=== PATIENT | male | born 1975 | race Caucasian/White ===

== ENCOUNTER 2016-05-02 08:21 | Emergency (ER) | payer OTHER ==
[~2016-05-02] VITALS: Ht 167.6 cm; Wt 106.2 kg
[~2016-05-02 08:21] MED LIST: ALBUAER2 INH; IPRASOL4 INH; MOME200A INH; PRED20TA2 PO; [UNRECOGNIZED DRUG - REMARK]
[2016-05-02 08:24] VITALS: TEMP 36.5; Ht 167.6 cm; Wt 106.2 kg
[2016-05-02] MEDS ORDERED: METHYLPREDNISOLONE 125 MG VIAL IV STA (08:54)
[2016-05-02] MEDS ORDERED: ALBUT/IPRATROP 3MG/0.5MG NEB 3 ML VIAL INH STA (08:54)
[2016-05-02 09:01] VITALS: O2SAT 96
[2016-05-02 09:14] LABS: HEMATOCRIT 41.3 % (42-52); MEAN CELL VOLUME 85.2 fL (80-100); MEAN CORPUSCULAR HEMOGLOBIN 28.9 pg (25-34); MEAN CORPUSCULAR HGB CONC 33.9 g/dl (32-36); MEAN PLATELET VOLUME 9.2 fL (7.4-10.4); PLATELET COUNT 349 K/uL (130-400); RED BLOOD COUNT 4.85 M/uL (4.7-6.1); WHITE BLOOD COUNT 11.08 K/uL (4.8-10.8)
[2016-05-02 09:19] VITALS: PULSE 80; O2SAT 95
[2016-05-02] MEDS ORDERED: PRED10TA PO (09:36)
[2016-05-02] MEDS ORDERED: LOSA1TAB PO (09:37)
[2016-05-02] MEDS ORDERED: ATOR10TA88 PO (09:37)
[2016-05-02 09:39] LABS: BUN/CREATININE RATIO 19.6 (10-20); CALCIUM 8.5 mg/dl (8.5-10.1); POTASSIUM 3.5 mmol/L (3.5-5.1)
--- NOTE | 2016-05-02 10:51 | DIAGNOSTIC IMAGING REPORT ---
CHEST 2 VIEWS ROUTINE CLINICAL HISTORY: COUGH, WHEEZING, SOB COMPARISON STUDY: 03/26/2016 FINDINGS: The heart is mildly enlarged. There is no failure. There is no focal pulmonary consolidation. There are no pleural effusions. There are postsurgical changes present within the spine. A triangular area of increased density within the right mid to upper lung zone laterally, likely reflects artifact from overlying soft tissue. There are no corresponding abnormalities on the lateral view.[ IMPRESSION: No active disease in the chest. Electronically signed by: Garland Medina M.D. 05/02/2016 10:49 AM Dictated Date/Time: 05/02/2016 10:48 AM
[2016-05-02 11:17] VITALS: BP 129/73; PULSE 93; O2SAT 96
[2016-05-02] MEDS ORDERED: HYDROCODONE/ACETAMOPHEN 5/325MG TAB PO STA (11:28)
[2016-05-02] MEDS ORDERED: PRED20TA PO (11:32)
--- NOTE | 2016-05-02 11:33 | EMERGENCY ROOM VISIT NOTE ---
ED Visit Note First contact with patient: 08:29 CC: Cough and shortness of breath 1 week HISTORY OF PRESENT ILLNESS: Patient is a 41-year-old white male with long- standing history of poorly controlled asthma and well known to the emergency department for frequent visits, who presents to emergency department for evaluation of cough and shortness of breath. He has had progressively worsening symptoms for about a week. He was last in the emergency department in the end of February and treated with steroids. He had follow-up with his doctor and was placed on a Z-Erik about 2 weeks ago which he finished. He is on low-dose steroids presently, he reports 10 mg per day. He reports a cough productive of scant, yellow sputum. 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 He has been using his medications including albuterol inhaler, Dulera inhaler and albuterol nebulizers (last was last night. ). He used his albuterol inhaler 3 times this morning without relief. No fever or chills. No chest pain. He did have a GI illness last week, including nausea, vomiting and diarrhea. His girlfriend was sick with similar symptoms. There has been no calf pain or swelling. REVIEW OF SYSTEMS: Review of systems as per HPI. All other systems reviewed were negative. 10 systems reviewed. PMH: Electronic medical records are reviewed and summarized as above/below. See Problem List. SOCIAL HISTORY: Patient lives at home. Employed. Nonsmoker. PHYSICAL EXAM: Vital Signs: Reviewed Nurse's notes. CONSTITUTIONAL: Patient is a well-appearing 41-year-old white male who is awake and alert and in no acute distress. Vital signs are stable. Oxygen saturation is 93% on room air. He has no audible wheezing or conversational dyspnea noted. HEENT: Normocephalic, atraumatic. Pupils equal, round, reactive to light and accommodation. EOMs intact without nystagmus. Sclera are anicteric. Tympanic membranes intact, with normal landmarks. External canals are clear. Oral and nasopharynx are clear. Mucous membranes are moist. NECK: Supple, non-tender. No stridor. CHEST: Symmetrical expansion, no retractions or use of accessory muscles of respiration. HEART: Regular rate and rhythm. LUNGS: Breath sounds are diminished, with end inspiratory and expiratory wheezes throughout. No other adventitious sounds appreciated. ABDOMEN: Soft, non-tender, no masses or organs felt. SKIN: No lesions or rash, normal skin turgor. EXTREMITIES: No swelling, cyanosis or tenderness in the arms or legs. EMERGENCY DEPARTMENT COURSE: The patient was seen and evaluated as above. His old records are reviewed. I am familiar with him from prior visits. After discussion with him, he felt that he would respond better to an hour-long DuoNeb , which was administered. He was given Solu-Medrol 125 mg IV. CBC and BMP were unremarkable. Chest x-ray did not show any consolidation, failure or effusion. On reexamination, the patient had complete resolution of his wheezing. He subjectively reported that his chest felt more clear, and it was easier for him to breathe. He presents today with what appears to be an exacerbation of his underlying asthma. He does not have any evidence for focal consolidation, no evidence of CHF or pneumothorax. I do not PE or ACS. The patient complained of some left hip pain from a fall and was given one Rueter tablet by mouth prior to discharge. He will only placed on a prednisone taper. I did not feel that there was any indication for any antibiotics at this time. The patient is well versed on the worrisome signs or symptoms for which she should return to the emergency department. He was otherwise told to follow-up with his primary care provider for further care and management. The patient was discharged home in good condition with family driving. CHEST 2 VIEWS ROUTINE CLINICAL HISTORY: COUGH, WHEEZING, SOB COMPARISON STUDY: 03/26/2016 FINDINGS: The heart is mildly enlarged. There is no failure. There is no focal pulmonary consolidation. There are no pleural effusions. There are postsurgical changes present within the spine. A triangular area of increased density within the right mid to upper lung zone laterally, likely reflects artifact from overlying soft tissue. There are no corresponding abnormalities on the lateral view. IMPRESSION: No active disease in the chest. Problem List Medical Problems: (1) Asthma, Unspecified Status: Chronic (2) Hypertension Nos Status: Chronic Current/Historical Medications Scheduled Atorvastatin (Lipitor), 10 MG PO HS Losartan Potassium (Cozaar), 25 MG PO DAILY Mometasone Furoate-Formoterol (Dulera 200/5 Mcg), 2 PUFFS INH BID Prednisone (Prednisone), 0 PO DAILY Prednisone Tab (Prednisone), 10 MG PO DAILY Scheduled PRN Albuterol (Ventolin), 2 PUFFS INH QID PRN for SOB/Wheezing Ipratropium-Albuterol (Duoneb), 1 TREATMENT INH Q2H PRN for SOB/Wheezing Allergies Coded Allergies: Penicillins (Verified Allergy, Mild, RXN TO AMOXICILLIN (SEVERE RASH), 05/02) SEVERE RASH Amoxicillin (Verified Allergy, Unknown, HIVES, 05/02/16) Vital Signs Date Time Temp Pulse Resp B/P Pulse Ox O2 Delivery O2 Flow Rate FiO2 05/02/16 11:17 93 18 129/73 96 Room Air 05/02/16 10:17 87 18 144/80 100 Nebulizer 8.0 05/02/16 09:19 80 18 95 Room Air 05/02/16 09:05 80 05/02/16 09:04 95 Room Air 05/02/16 09:01 96 Room Air 05/02/16 08:24 36.5 92 24 139/92 93 Room Air Laboratory Results 05/02/16 09:00 05/02/16 09:00 Test 05/02/16 09:00 Red Blood Count 4.85 M/uL (4.7-6.1) Mean Corpuscular Volume 85.2 fL (80-100) Mean Corpuscular Hemoglobin 28.9 pg (25-34) Mean Corpuscular Hemoglobin Concent 33.9 g/dl (32-36) RDW Standard Deviation 40.2 fL (36.4-46.3) RDW Coefficient of Variation 13.1 % (11.5-14.5) Mean Platelet Volume 9.2 fL (7.4-10.4) Anion Gap 7.0 mmol/L (3-11) Est Creatinine Clear Calc Drug Dose 108.8 ml/min Estimated GFR () 106.4 Estimated GFR (Non- 91.8 BUN/Creatinine Ratio 19.6 (10-20) Calcium Level 8.5 mg/dl (8.5-10.1) Medications Administered Medications (Trade) Dose Ordered Sig/Norma Route Start Time Stop Time Status Last Admin Dose Admin Methylprednisolone Sodium Succinate (Solu-Medrol IV) 125 mg NOW STAT IV 05/02/16 08:54 05/02/16 08:56 DC 05/02/16 09:04 125 MG Albuterol/ Ipratropium (Duoneb) 12 ml NOW STAT INH 05/02/16 08:54 05/02/16 08:56 DC 05/02/16 09:19 12 ML Acetaminophen/ Hydrocodone Bitart (Rueter 5/325 Tab) 1 tab NOW STAT PO 05/02/16 11:28 05/02/16 11:29 DC 05/02/16 11:34 1 TAB Departure Information Impression Primary Impression: Acute asthma exacerbation Prescriptions Prednisone (Prednisone) 20 Mg Tab 0 PO DAILY, #30 TAB 3 DAILY FOR 5 DAYS, THEN 2 DAILY FOR 5 DAYS, THEN 1 DAILY FOR 5 DAYS. Prov: Caitlin Banuelos PA 05/02/16 Referrals Catrachito Willis M.D. (PCP) Patient Instructions A Signature Page, My [facility] Additional Instructions DO NOT drive, drink alcohol, operate machinery, or perform dangerous activities today. You were given medications in the ER that can affect your ability to safely function or operate a vehicle. Continue your inhalers/nebulizers as previously prescribed. Prednisone 20 mg: Once daily as prescribed until the prescription is finished. It is best to take this earlier in the day as some patients note occasional difficulty falling asleep when taken in the late evening. Acetaminophen(Tylenol) may be used for fever or pain. Use 1000mg every eight hours as needed. Avoid using more than 3000mg in a 24 hour period. This is available over the counter. Rest and drink plenty of fluids. Avoid strenuous activity until your symptoms resolve and your breathing returns to normal. Continue current medications. Return to the ER for chest pain, difficulty breathing, persistent fevers, vomiting, worsening of your condition, or as needed. Follow up with your primary care physician next week for recheck.
[2016-07-07] MEDS ORDERED: AZITTAB PO (00:16)
[2016-07-17] MEDS ORDERED: ATRINSX INH (09:45)
[2016-07-17] MEDS ORDERED: CYCL5TAB PO (09:45)
[2016-07-17] MEDS ORDERED: PHENSYP13 PO (09:45)
[2016-07-17] MEDS ORDERED: RANI150T3 PO (09:45)
[2016-07-17] MEDS ORDERED: ALBINS/ INH (09:45)
[2016-07-17] MEDS ORDERED: PRED20TA PO (09:45)
[2016-07-17] MEDS ORDERED: ALBU18002 INH (09:45)
[2016-07-17] MEDS ORDERED: OXYC1TAB3 PO (09:45)
[2016-07-17] MEDS ORDERED: UMEC1INH INH (09:45)
[2016-07-24] MEDS ORDERED: OXYC1TAB3 PO (07:18)
[2016-07-24] MEDS ORDERED: INDO75CA PO (07:18)
[2016-08-07] MEDS ORDERED: OXYC1TAB3 PO (20:47)
[2016-08-08] MEDS ORDERED: CEPH500C PO (07:26)
[2016-09-05] MEDS ORDERED: INDO75CA PO (15:25)
[2016-09-10] MEDS ORDERED: OXYC-57 PO (14:47)
== END 2016-05-02 11:40 | disposition home or self-care (01) ==
LOC: C.EDB 08:24 → C.EDA 11:40
DX: J45.901 Unspecified asthma with (acute) exacerbation (principal); R19.7 Diarrhea, unspecified; R11.2 Nausea with vomiting, unspecified; I10 Essential (primary) hypertension; Z79.52 Long term (current) use of systemic steroids; Z79.899 Other long term (current) drug therapy

== ENCOUNTER 2016-05-12 02:58 | Emergency (ER) | payer OTHER ==
[~2016-05-12] VITALS: Ht 167.6 cm; Wt 108.8 kg
[~2016-05-12 02:58] MED LIST changes: +ATOR10TA88 PO; +LOSA1TAB PO; +PRED10TA PO; +PRED20TA PO; -PRED20TA2 PO; -[UNRECOGNIZED DRUG - REMARK]
[2016-05-12 03:01] VITALS: TEMP 36.5; Ht 167.6 cm; Wt 108.8 kg
[2016-05-12] MEDS ORDERED: ALBUT/IPRATROP 3MG/0.5MG NEB 3 ML VIAL INH STA ×2 (03:10→03:45)
--- NOTE | 2016-05-12 03:14 | EMERGENCY ROOM VISIT NOTE ---
History First contact with patient: 03:05 Chief Complaint: RESPIRATORY PROBLEMS Stated Complaint: BREATHING/ASTHMA Nursing Triage Summary: pt coughing and trouble breathing for past couple days, had pulmonary function test on thursday and has been like this since History of Present Illness The patient is a 41 year old male who presents to the Emergency Department by private vehicle for evaluation of his cough and shortness of breath. The patient has a significant past medical history of chronic asthma. He had pulmonary function testing performed on Thursday by Dr. Zavala. He reports that since that time he has had worsening cough. He is coughing up blackish material. He reports that his last nebulizer treatment was several hours prior to arrival. He has no fevers or chills. There is been no kimberly mopped assist. He reports pain to the RIGHT sided chest after coughing. He's had no fevers. He rates his current discomfort is 7/10. He denies any headaches, dizziness, lightheadedness, LEFT sided chest pain, palpitations, nausea, vomiting, or abdominal pain. He reports taking 10 mg prednisone daily. Review of Systems A complete 10-point Review of Systems was discussed with the patient, with pertinent positives and negatives listed in the History of Present Illness. All remaining Review of Systems questions can be considered negative unless otherwise specified. Past Medical/Surgical History Medical Problems: (1) Asthma, Unspecified (2) Hypertension Nos Family History Cancer Diabetes mellitus Gallbladder disease Heart disease Hypertension Kidney disease Kidney stones Lung disease Seizures Social History Smoking Status: Never Smoker Alcohol Use: occasionally Drug Use: none Marital Status: Housing Status: lives with family Occupation Status: unemployed Current/Historical Medications Scheduled Atorvastatin (Lipitor), 10 MG PO HS Azithromycin (Azithromycin), 1 TAB PO DAILY Losartan Potassium (Cozaar), 25 MG PO DAILY Mometasone Furoate-Formoterol (Dulera 200/5 Mcg), 2 PUFFS INH BID Prednisone (Prednisone), 40 MG PO DAILY Prednisone Tab (Prednisone), 10 MG PO DAILY Scheduled PRN Albuterol (Ventolin), 2 PUFFS INH QID PRN for SOB/Wheezing Ipratropium-Albuterol (Duoneb), 1 TREATMENT INH Q2H PRN for SOB/Wheezing Allergies Coded Allergies: Penicillins (Verified Allergy, Mild, RXN TO AMOXICILLIN (SEVERE RASH), ) SEVERE RASH Amoxicillin (Verified Allergy, Unknown, HIVES, 05/12/16) Physical Exam Vital Signs Date Time Temp Pulse Resp B/P Pulse Ox O2 Delivery O2 Flow Rate FiO2 05/12/16 04:41 110 24 137/88 97 Room Air 05/12/16 03:20 96 Room Air 05/12/16 03:01 36.5 100 30 142/75 95 Room Air Pain Rating (0-10): 7 Physical Exam VITAL SIGNS - Vital signs and nursing notes were reviewed. GENERAL - 41-year-old male appearing his stated age who is in no acute distress. Communicates well with provider and answers questions appropriately. LUNGS - Chest wall symmetric without accessory muscle use, intercostals retractions, or central cyanosis. Mildly tachypneic. Diffuse inspiratory wheezes noted throughout all lung fisher. Decreased breath sounds at the lung bases bilaterally. No Rales. CARDIAC - RRR with S1/S2. No murmur, rubs, or gallops appreciated. No reproducible tenderness to palpation appreciated over the anterior chest wall. ABDOMEN - Abdominal contour obese and without pulsations or visible masses. BS normoactive all four quadrants. No tenderness, palpable masses, hepatosplenomegaly, or ascites noted. PSYCH - A&Ox3 and cooperates fully with examiner. Pt is very pleasant and interacts well with examiner. Medical Decision & Procedures ER Provider Diagnostic Interpretation: X-ray the chest was obtained and reviewed by myself. No acute consolidations or changes from prior films were appreciated. Radiologist's impression unavailable at the time of dictation. Medications Administered Medications (Trade) Dose Ordered Sig/Norma Route Start Time Stop Time Status Last Admin Dose Admin Dexamethasone Sodium Phosphate (Decadron Inj) 10 mg NOW ONCE IM 05/12/16 03:15 05/12/16 03:16 DC 05/12/16 03:18 10 MG Albuterol/ Ipratropium (Duoneb) 3 ml NOW STAT INH 05/12/16 03:10 05/12/16 03:12 DC 05/12/16 03:18 3 ML Albuterol/ Ipratropium (Duoneb) 3 ml NOW STAT INH 05/12/16 03:45 05/12/16 03:46 DC 05/12/16 03:48 3 ML Azithromycin (Zithromax Tab) 500 mg NOW ONCE PO 05/12/16 03:45 05/12/16 03:46 DC 05/12/16 03:48 500 MG Procedure The patient's pulse oximetry was monitored throughout the entire stay. Any abnormalities or aberrancies were addressed appropriately. ED Course Patient was seen and evaluated by myself. X-ray of the chest was obtained. The patient was treated with 1 DuoNeb and 10 mg Decadron intramuscularly. Patient was reevaluated and reports feeling mildly better. His breath sounds are somewhat better at this time. Patient was offered second DuoNeb which he accepts. He was provided initial dose of azithromycin in the emergency department. Patient was reevaluated and reports feeling markedly better at this time. The patient will continue to follow with his database marketing analyst from today's visit. He will return to the emergency department for any changing or worsening symptoms. Patient discharged home afebrile and in good condition. Medical Decision Given the patient's presentation and stated complaints, I did elect to perform the above-mentioned workup. I am familiar with this patient for multiple previous emergency department visits. He does appear slightly more tachypneic and has more wheezes than I remember. He did respond well to DuoNeb 2. He will replace a short burst course of prednisone. He is on prednisone 10 mg daily at this point. His chest x-ray demonstrated no pneumonia, however given his worsening pulmonary disease, he will be covered with azithromycin orally. Patient is comfortable with this disposition and plan. He will return for any changing or worsening symptoms. Patient discharged home afebrile and in good condition. In the evaluation and treatment of this patient, the following differential diagnoses were considered: SD, ASC, Dysrhythmia, Angina, Mediastinitis, GERD, Esophagitis, PE, Pneumonia, Bronchitis, Costochondritis, Rib Fracture, Zoster. Impression Primary Impression: Asthma with acute exacerbation Additional Impression: Asthmatic bronchitis Departure Information Dispostion Home / Self-Care Condition GOOD Prescriptions Azithromycin (Azithromycin) 250 Mg Tab 1 TAB PO DAILY for 4 Days, #4 TAB Prov: Jayson Vasquez PA-C 05/12/16 Prednisone (Prednisone) 20 Mg Tab 40 MG PO DAILY for 4 Days, #8 TAB Prov: Jayson Vasquez PA-C 05/12/16 Referrals No Doctor, Assigned (PCP) Patient Instructions My [facility] [address] Additional Instructions Continue nebulizers as prescribed. Take the steroids and antibiotics as prescribed. Follow-up with your database marketing analyst from today's visit. Return for any changing or worsening symptoms. Problem Qualifiers Primary Impression: Asthma with acute exacerbation Asthma severity: unspecified severity Qualified Codes: J45.901 - Unspecified asthma with (acute) exacerbation Additional Impression: Asthmatic bronchitis Asthma severity: unspecified severity Asthma complication type: uncomplicated Qualified Codes: J45.909 - Unspecified asthma, uncomplicated
[2016-05-12] MEDS ORDERED: DEXAMETHASONE SOD INJ 10 MG/ML VIAL IM ONE (03:15)
[2016-05-12 03:20] VITALS: O2SAT 96
[2016-05-12] MEDS ORDERED: AZITHROMYCIN 250 MG TAB PO ONE (03:45)
[2016-05-12] MEDS ORDERED: PRED20TA PO (04:35)
[2016-05-12] MEDS ORDERED: ZTHM250 PO (04:35)
[2016-05-12 04:41] VITALS: BP 137/88; PULSE 110; O2SAT 97
--- NOTE | 2016-05-12 06:43 | DIAGNOSTIC IMAGING REPORT ---
CHEST ONE VIEW PORTABLE CLINICAL HISTORY: Cough. Shortness of breath. COMPARISON STUDY: Chest radiograph May 02, 2016. FINDINGS: Spine fusion hardware is noted. Lung volumes are normal. Lungs are clear. Cardiac size is stable. There is no evidence of pulmonary edema. The appearance of the chest is unchanged. IMPRESSION: No acute cardiopulmonary findings. Electronically signed by: Kj Ojeda M.D. 05/12/2016 6:41 AM Dictated Date/Time: 05/12/2016 6:40 AM
[2016-07-07] MEDS ORDERED: AZITTAB PO (00:16)
[2016-07-17] MEDS ORDERED: PRED20TA PO (09:45)
[2016-07-17] MEDS ORDERED: ALBU18002 INH (09:45)
[2016-07-17] MEDS ORDERED: OXYC1TAB3 PO (09:45)
[2016-07-17] MEDS ORDERED: ALBINS/ INH (09:45)
[2016-07-17] MEDS ORDERED: CYCL5TAB PO (09:45)
[2016-07-17] MEDS ORDERED: ATRINSX INH (09:45)
[2016-07-17] MEDS ORDERED: RANI150T3 PO (09:45)
[2016-07-17] MEDS ORDERED: UMEC1INH INH (09:45)
[2016-07-17] MEDS ORDERED: PHENSYP13 PO (09:45)
[2016-07-24] MEDS ORDERED: INDO75CA PO (07:18)
[2016-07-24] MEDS ORDERED: OXYC1TAB3 PO (07:18)
[2016-08-07] MEDS ORDERED: OXYC1TAB3 PO (20:47)
[2016-08-08] MEDS ORDERED: CEPH500C PO (07:26)
[2016-09-05] MEDS ORDERED: INDO75CA PO (15:25)
[2016-09-10] MEDS ORDERED: OXYC-57 PO (14:47)
== END 2016-05-12 04:41 | disposition home or self-care (01) ==
LOC: C.EDB 02:59
DX: J45.901 Unspecified asthma with (acute) exacerbation (principal); J45.909 Unspecified asthma, uncomplicated; I10 Essential (primary) hypertension; Z79.52 Long term (current) use of systemic steroids; Z79.899 Other long term (current) drug therapy; Z88.0 Allergy status to penicillin; Z83.3 Family history of diabetes mellitus; Z82.49 Family history of ischemic heart disease and other diseases of the circulatory system; Z83.79 Family history of other diseases of the digestive system; Z84.1 Family history of disorders of kidney and ureter; Z83.6 Family history of other diseases of the respiratory system; Z82.0 Family history of epilepsy and other diseases of the nervous system

== ENCOUNTER 2016-05-15 16:10 | Emergency (ER) | payer OTHER ==
[~2016-05-15] VITALS: Ht 167.6 cm; Wt 107.5 kg
[~2016-05-15 16:10] MED LIST changes: +ZTHM250 PO
[2016-05-15] MEDS ORDERED: ALBUT/IPRATROP 3MG/0.5MG NEB 3 ML VIAL INH STA ×2 (18:08→19:02)
[2016-05-15] MEDS ORDERED: DEXAMETHASONE SOD INJ 10 MG/ML VIAL IV ONE (18:15)
[2016-05-15] MEDS ORDERED: FLUT0.15 NAE (18:33)
[2016-05-15] MEDS ORDERED: UMECLIDINIUM INH (18:33)
[2016-05-15] MEDS ORDERED: MONT1TAB3 PO (18:33)
--- NOTE | 2016-05-15 18:35 | DIAGNOSTIC IMAGING REPORT ---
CHEST ONE VIEW PORTABLE CLINICAL HISTORY: Respiratory distress. Dyspnea. COMPARISON STUDY: Chest radiograph May 12, 2016. FINDINGS: Spinal fusion is incidentally noted. No pneumothorax or pleural effusion is identified and there is no evidence of pulmonary edema. Cardiomediastinal silhouette is stable. No consolidation is identified to suggest pneumonia. IMPRESSION: No acute cardiopulmonary findings. Electronically signed by: Kj Ojeda M.D. 05/15/2016 6:33 PM Dictated Date/Time: 05/15/2016 6:32 PM
[2016-05-15 18:41] LABS: BASO % 0.2 %; BASO ABS # 0.03 K/uL (0-0.2); COMPLETE YES; EOS % 0.1 %; HEMATOCRIT 44.1 % (42-52); IG% 1.4 %; LYMPH % 9.7 %; LYMPH ABS # 1.52 K/uL (1.2-3.4); MEAN CELL VOLUME 86.1 fL (80-100); MEAN CORPUSCULAR HEMOGLOBIN 28.7 pg (25-34); MEAN CORPUSCULAR HGB CONC 33.3 g/dl (32-36); MEAN PLATELET VOLUME 9.4 fL (7.4-10.4); MONO % 7.8 %; NEUT % 80.8 %; PLATELET COUNT 356 K/uL (130-400); RED BLOOD COUNT 5.12 M/uL (4.7-6.1); WHITE BLOOD COUNT 15.69 K/uL (4.8-10.8)
[2016-05-15 18:57] VITALS: O2SAT 95; Ht 167.6 cm; Wt 107.5 kg
[2016-05-15 19:03] LABS: ALB/GLOB RATIO 1.1 (0.9-2)
[2016-05-15 19:04] LABS: BUN/CREATININE RATIO 28.9 (10-20); CALCIUM 9.1 mg/dl (8.5-10.1); CREATININE 0.93 mg/dl (0.60-1.40); POTASSIUM 4.1 mmol/L (3.5-5.1)
[2016-05-15] MEDS ORDERED: HYDROCODONE/ACETAMOPHEN 5/325MG TAB PO STA (19:16)
[2016-05-15 19:34] LABS: URINE APPEARANCE CLEAR (CLEAR); URINE BILIRUBIN NEG (NEG); URINE COLOR YELLOW; URINE NITRITE NEG (NEG); URINE SPECIFIC GRAVITY 1.024 (1.000-1.030); UROBILINOGEN NEG (NEG)
[2016-05-15 19:51] LABS: MANUAL MICROSCOPIC REQUIRED? NO; REVIEW REQ? NO
[2016-05-15] MEDS ORDERED: PRED20TA PO (21:29)
[2016-05-15 21:46] VITALS: BP 123/90; PULSE 103; TEMP 36.5; O2SAT 96
--- NOTE | 2016-05-16 02:31 | EMERGENCY ROOM VISIT NOTE ---
History Report prepared by Junior: Marito Hui Under the Supervision of: Dr. Pierre Kurtz M.D. First contact with patient: 18:01 Chief Complaint: REFERRED BY DOCTOR Stated Complaint: REFERRED BY History of Present Illness The patient is a 41 year old male who presents to the Emergency Room with complaints of constant difficulty breathing for the past six days. The patient currently rates his discomfort as an 8/10 in severity. The patient states that his has the flu, and he went to his doctor due to difficulty breathing, and they advised him to come to the ED for evaluation. He additionally complains of a cough and an on and off fever. The patient additionally states that he has asthma. The patient states that he is currently taking 10mg prednisone and Tamiflu. He additionally states that he had a breathing treatment this morning. The patient states that he has been having a good appetite. The patient additionally states that he has a history of asthma. Pt denies LOC, headache, chills, diaphoresis, visual changes, neck pain, chest pain , nausea, vomiting, abdominal pain, back pain, melena, hematochezia, urinary symptoms, numbness, weakness, lymphadenopathy, rash, or other complaints. Source of History: patient Onset: six days ago Position: other (global) Symptom Intensity: 8/10 Quality: other (difficulty breathing) Timing: constant Associated Symptoms: + cough, + fevers Review of Systems See HPI for pertinent positives and negatives. A total of ten systems were reviewed and were otherwise negative. Past Medical & Surgical Medical Problems: (1) Asthma, Unspecified (2) Hypertension Nos Family History Cancer Diabetes mellitus Gallbladder disease Heart disease Hypertension Kidney disease Kidney stones Lung disease Seizures Social History Smoking Status: Former Smoker Alcohol Use: occasionally Drug Use: none Marital Status: Housing Status: lives with family Occupation Status: unemployed Current/Historical Medications Scheduled Atorvastatin (Lipitor), 10 MG PO HS Fluticasone Propionate (Nasal) (Flonase Allergy Relief), 2 SPRAYS CARLOS DAILY Losartan Potassium (Cozaar), 25 MG PO DAILY Mometasone Furoate-Formoterol (Dulera 200/5 Mcg), 2 PUFFS INH BID Montelukast Sodium (Singulair), 10 MG PO DAILY Prednisone (Prednisone), 0 PO DAILY Prednisone Tab (Prednisone), 10 MG PO DAILY [Incruz Inh], 1 SPRAY INH DAILY Scheduled PRN Albuterol (Ventolin), 2 PUFFS INH QID PRN for SOB/Wheezing Ipratropium-Albuterol (Duoneb), 1 TREATMENT INH Q2H PRN for SOB/Wheezing Allergies Coded Allergies: Penicillins (Verified Allergy, Mild, RXN TO AMOXICILLIN (SEVERE RASH), ) SEVERE RASH Amoxicillin (Verified Allergy, Unknown, HIVES, 05/12/16) Physical Exam Vital Signs Date Time Temp Pulse Resp B/P Pulse Ox O2 Delivery O2 Flow Rate FiO2 05/15/16 21:46 36.5 103 25 123/90 96 05/15/16 20:10 103 25 05/15/16 20:05 100 21 05/15/16 20:00 96 24 05/15/16 19:55 100 25 05/15/16 19:50 108 19 05/15/16 19:45 117 22 05/15/16 19:40 100 19 05/15/16 19:35 118 24 05/15/16 19:30 99 18 05/15/16 19:25 105 20 05/15/16 19:20 88 12 05/15/16 19:15 107 23 05/15/16 19:14 92 05/15/16 19:10 94 15 05/15/16 19:01 90 20 123/90 96 Nebulizer 05/15/16 19:00 123/90 05/15/16 18:57 95 Room Air 05/15/16 18:57 95 Room Air 05/15/16 16:17 36.5 103 24 163/108 95 Room Air Physical Exam GENERAL: Awake, alert, well-appearing, in no distress HENT: Normocephalic, atraumatic. Oropharynx unremarkable. EYES: Normal conjunctiva. Sclera non-icteric. NECK: Supple. No nuchal rigidity. FROM. No JVD. RESPIRATORY: Expiratory wheezes. Mildly dyspneic. CARDIAC: Regular rate, normal rhythm. Extremities warm and well perfused. Pulses equal. ABDOMEN: Soft, non-distended. No tenderness to palpation. No rebound or guarding. No masses. RECTAL: Deferred. MUSCULOSKELETAL: Chest examination reveals no tenderness. The back is symmetrical on inspection without obvious abnormality. There is no CVA tenderness to palpation. No joint edema. LOWER EXTREMITIES: Calves are equal size bilaterally and non-tender. No edema. No discoloration. NEURO: Normal sensorium. No sensory or motor deficits noted. SKIN: No rash or jaundice noted. Medical Decision & Procedures ER Provider Diagnostic Interpretation: X-ray: Per my interpretation, radiologist review. CHEST ONE VIEW PORTABLE CLINICAL HISTORY: Respiratory distress. Dyspnea. COMPARISON STUDY: Chest radiograph May 12, 2016. FINDINGS: Spinal fusion is incidentally noted. No pneumothorax or pleural effusion is identified and there is no evidence of pulmonary edema. Cardiomediastinal silhouette is stable. No consolidation is identified to suggest pneumonia. IMPRESSION: No acute cardiopulmonary findings. Electronically signed by: Kj Ojeda M.D. 05/15/2016 6:33 PM Dictated Date/Time: 05/15/2016 6:32 PM Laboratory Results 05/15/16 18:20 Red Blood Count 5.12, Mean Corpuscular Volume 86.1, Mean Corpuscular Hemoglobin 28.7, Mean Corpuscular Hemoglobin Concent 33.3, Mean Platelet Volume 9.4, Neutrophils (%) (Auto) 80.8, Lymphocytes (%) (Auto) 9.7, Monocytes (%) (Auto) 7.8, Eosinophils (%) (Auto) 0.1, Basophils (%) (Auto) 0.2, Neutrophils # (Auto) 12.67, Lymphocytes # (Auto) 1.52, Monocytes # (Auto) 1.23, Eosinophils # (Auto) 0.02, Basophils # (Auto) 0.03 05/15/16 18:20 Test 05/15/16 18:20 05/15/16 18:45 White Blood Count 15.69 K/uL (4.8-10.8) Red Blood Count 5.12 M/uL (4.7-6.1) Hemoglobin 14.7 g/dL (14.0-18.0) Hematocrit 44.1 % (42-52) Mean Corpuscular Volume 86.1 fL (80-100) Mean Corpuscular Hemoglobin 28.7 pg (25-34) Mean Corpuscular Hemoglobin Concent 33.3 g/dl (32-36) Platelet Count 356 K/uL (130-400) Mean Platelet Volume 9.4 fL (7.4-10.4) Neutrophils (%) (Auto) 80.8 % Lymphocytes (%) (Auto) 9.7 % Monocytes (%) (Auto) 7.8 % Eosinophils (%) (Auto) 0.1 % Basophils (%) (Auto) 0.2 % Neutrophils # (Auto) 12.67 K/uL (1.4-6.5) Lymphocytes # (Auto) 1.52 K/uL (1.2-3.4) Monocytes # (Auto) 1.23 K/uL (0.11-0.59) Eosinophils # (Auto) 0.02 K/uL (0-0.5) Basophils # (Auto) 0.03 K/uL (0-0.2) RDW Standard Deviation 43.7 fL (36.4-46.3) RDW Coefficient of Variation 13.8 % (11.5-14.5) Immature Granulocyte % (Auto) 1.4 % Immature Granulocyte # (Auto) 0.22 K/uL (0.00-0.02) Anion Gap 8.0 mmol/L (3-11) Est Creatinine Clear Calc Drug Dose 117.7 ml/min Estimated GFR () 116.1 Estimated GFR (Non- 100.2 BUN/Creatinine Ratio 28.9 (10-20) Calcium Level 9.1 mg/dl (8.5-10.1) Total Bilirubin 0.3 mg/dl (0.2-1) Aspartate Amino Transf (AST/SGOT) 25 U/L (15-37) Alanine Aminotransferase (ALT/SGPT) 51 U/L (12-78) Alkaline Phosphatase 94 U/L (45-117) Total Protein 6.7 gm/dl (6.4-8.2) Albumin 3.5 gm/dl (3.4-5.0) Globulin 3.2 gm/dl (2.5-4.0) Albumin/Globulin Ratio 1.1 (0.9-2) Chemistry Specimen Hemolysis Urine Color YELLOW Urine Appearance CLEAR (CLEAR) Urine pH 7.0 (4.5-7.5) Urine Specific [place] 1.024 (1.000-1.030) Urine Protein NEG (NEG) Urine Glucose (UA) NEG (NEG) Urine Ketones NEG (NEG) Urine Occult Blood NEG (NEG) Urine Nitrite NEG (NEG) Urine Bilirubin NEG (NEG) Urine Urobilinogen NEG (NEG) Urine Leukocyte Esterase NEG (NEG) Laboratory results reviewed by me Medications Administered Medications (Trade) Dose Ordered Sig/Norma Route Start Time Stop Time Status Last Admin Dose Admin Albuterol/ Ipratropium (Duoneb) 3 ml NOW STAT INH 05/15/16 18:08 05/15/16 18:09 DC 05/15/16 18:56 3 ML Dexamethasone Sodium Phosphate (Decadron Inj) 10 mg NOW ONCE IV 05/15/16 18:15 05/15/16 18:16 DC 05/15/16 18:57 10 MG Albuterol/ Ipratropium (Duoneb) 3 ml NOW STAT INH 05/15/16 19:02 05/15/16 19:03 DC 05/15/16 19:18 3 ML Acetaminophen/ Hydrocodone Bitart (Moroni 5/325 Tab) 1 tab NOW STAT PO 05/15/16 19:16 05/15/16 19:17 DC 05/15/16 19:20 1 TAB ECG Indication: SOB/dyspnea Rate (beats per minute): 82 Rhythm: normal sinus Findings: no acute ischemic change, no ectopy ED Course 1800: The patient was evaluated in room A3. A complete history and physical exam was performed. 180: DuoNeb 3ml INH 1814: Decadron Inj 10mg IV 1901: DuoNeb 3ml INH 1905: I reevaluated the patient, and he was feeling better. The patient sates that he has a lot of rib pain and soreness with coughing 1915: Moroni 5/325 1 Tab PO 2117: I reevaluated the patient, and he was feeling good, and he wants to go home. Discussed results and discharge instructions: He verbalized understanding and agreement. The patient is ready for discharge. Medical Decision Triage Nursing notes reviewed. The patient's presentation and history were concerning for respiratory issues and recent influenza exposure. Etiologies such as pneumonia, COPD, reactive airway disease, CHF, cardiac ischemia, pulmonary embolism, pneumothorax, musculoskeletal, infections, gastrointestinal, as well as others were entertained. Patient was evaluated. He has a history of reactive airway disease. His significant other was just diagnosed with influenza and he was started on Tamiflu. The patient had some wheezing. Chest x-ray was performed and was negative for pneumonia. He was given a DuoNeb and Decadron. He was given a second DuoNeb. Patient is also noting some muscle soreness from coughing and breathing. He requested pain medicine for this. He is given a dose of Moroni. On reassessment he felt better. His chemistry panel revealed some mild dehydration. LFTs were negative. Urinalysis negative. The patient had a slight leukocytosis on CBC. He is currently on prednisone, low-dose. He felt well and desired discharge. He requested a prednisone taper. He has a nebulizer and inhalers at home. The patient will continue his Tamiflu. He'll follow-up as an outpatient. He worsens in any way he will be back to the Emergency Room for reevaluation. By the evaluation outlined above other emergent etiologies such as those listed in the differential, as well as others, were deemed relatively unlikely. The patient was informed about the findings as listed above. All questions were answered and he was pleased with the treatment. Return instructions were outlined and the patient was discharged in stable condition. The patient was referred to his primary for follow-up for a recheck of the current condition. The chart was completed utilizing [employer] Speech voice recognition software. Grammatical errors, random word insertions, pronoun errors, and incomplete sentences are an occasional consequence of this system due to software limitations, ambient noise, and hardware issues. Any formal questions or concerns about the content, text, or information contained within the body of this dictation should be directly addressed to the physician for clarification. Impression Primary Impression: Asthma exacerbation Additional Impression: Influenza Scribe Attestation The scribe's documentation has been prepared under my direction and personally reviewed by me in its entirety. I confirm that the note above accurately reflects all work, treatment, procedures, and medical decision making performed by me. Departure Information Dispostion Home / Self-Care Prescriptions Prednisone (Prednisone) 20 Mg Tab 0 PO DAILY, #28 TAB Prednisone 20 mg: Take 3 pills a day for 6 days, then take 2 pills a day for 4 days, then take one pill a day for two days. Prov: Pierre Kurtz MD 05/15/16 Referrals Catrachito Willis M.D. (PCP) Forms HOME CARE DOCUMENTATION FORM, IMPORTANT VISIT INFORMATION, WORK / SCHOOL INSTRUCTIONS Patient Instructions My [facility] Additional Instructions Continue the Tamiflu. Use your albuterol inhaler and nebulizer as discussed. Prednisone 20 mg: Take 3 pills a day for 6 days, then take 2 pills a day for 4 days, then take one pill a day for two days, then resume your prednisone dose. Acetaminophen(Tylenol) may be used for fever or pain. Use 1000mg every six hours as needed. Avoid using more than 4000mg in a 24 hour period. (AND/OR) Ibuprofen(Motrin, Advil) may be used for fever or pain. Use 600mg every six hours as needed. Take with food. Avoid using more than 2400mg in a 24 hour period. Do not use 2400mg per day for more than three consecutive days without physician direction. Prolonged inappropriate use can lead to stomach upset or ulcers. Rest and drink plenty of fluids. Avoid smoke/smoking, fumes, dust, or any triggers in the past that may have affected your breathing. Continue current medications. Return to the ER for chest pain, difficulty breathing, fevers, vomiting, worsening of your condition, or as needed. Follow up with your primary physician this week for a recheck of your current condition. Problem Qualifiers
[2016-07-07] MEDS ORDERED: AZITTAB PO (00:16)
[2016-07-17] MEDS ORDERED: CYCL5TAB PO (09:45)
[2016-07-17] MEDS ORDERED: OXYC1TAB3 PO (09:45)
[2016-07-17] MEDS ORDERED: ALBU18002 INH (09:45)
[2016-07-17] MEDS ORDERED: PRED20TA PO (09:45)
[2016-07-17] MEDS ORDERED: RANI150T3 PO (09:45)
[2016-07-17] MEDS ORDERED: ALBINS/ INH (09:45)
[2016-07-17] MEDS ORDERED: ATRINSX INH (09:45)
[2016-07-17] MEDS ORDERED: PHENSYP13 PO (09:45)
[2016-07-17] MEDS ORDERED: UMEC1INH INH (09:45)
[2016-07-24] MEDS ORDERED: INDO75CA PO (07:18)
[2016-07-24] MEDS ORDERED: OXYC1TAB3 PO (07:18)
[2016-08-07] MEDS ORDERED: OXYC1TAB3 PO (20:47)
[2016-08-08] MEDS ORDERED: CEPH500C PO (07:26)
[2016-09-05] MEDS ORDERED: INDO75CA PO (15:25)
[2016-09-10] MEDS ORDERED: OXYC-57 PO (14:47)
== END 2016-05-15 21:47 | disposition home or self-care (01) ==
LOC: C.EDB 16:11 → C.EDA 21:47
DX: J45.901 Unspecified asthma with (acute) exacerbation (principal); J11.1 Influenza due to unidentified influenza virus with other respiratory manifestations; I10 Essential (primary) hypertension; Z87.891 Personal history of nicotine dependence; Z79.899 Other long term (current) drug therapy

== ENCOUNTER → 2016-05-26 | Outpatient (CLI) | payer OTHER ==
[~2016-05-26] MED LIST changes: +ALBINS/ INH; +ALBU18002 INH; +ATRINSX INH; +AZITTAB PO; +CEPH500C PO; +CHOLESTEROL MED PO; +CYCL5TAB PO; +FLUT0.15 NAE; +IBUP-1050 PO; +INDO75CA PO; +MONT1TAB3 PO; +OXYC-57 PO; +OXYC1TAB3 PO; +PHENSYP13 PO; +PRED50TA PO; +PRLSR20 PO; +RANI150T3 PO; +RANITIDINE PO; +UMEC1INH INH; +UMECLIDINIUM INH; +VNTHFA/IN INH; -ZTHM250 PO; +[UNRECOGNIZED DRUG - OTHER] PO
--- NOTE | 2016-05-26 10:04 | DIAGNOSTIC IMAGING REPORT ---
MRI left hip LEFT LOWER EXT JOINT WITHOUT CLINICAL HISTORY: LT HIP PAIN calcification TECHNIQUE: Multiaxial MRI acquisition COMPARISON STUDY: None FINDINGS: Signal characteristics the osseous structures are in general unremarkable. 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 Right hip appears to be intact. Findings of mild degenerative changes of the articular services of the hips bilaterally. Medially anterior to the left superior acetabulum and extending inferiorly to the greater trochanter is a calcific intramuscular density measuring 8 x 4 x 3 cm. This appears to be creating a partial pseudoarticulation with the lateral aspect of the superior acetabular region. Is otherwise well demarcated. No direct contact within the left femur or left hip is appreciated. There is minimal extension to the anterior margin of the left acetabulum. 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 Remainder the study is unremarkable. Bowel pattern within the pelvis is nonobstructive. Bladder is midline. IMPRESSION: 1. 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 2. This measures 8 x 4 x 3 cm, and extends from the lateral margin of the superior acetabulum to a level immediately anterior to the intertrochanteric region of the left hip. 3. Partial pseudoarticulation of this calcific nodule with the anterior margin of the left acetabulum. 4. No direct involvement of the left hip or femoral shaft. 5. The appearance is most consistent with that of a posttraumatic focus of myositis ossificans Electronically signed by: Anton Andres M.D. 05/26/2016 10:02 AM Dictated Date/Time: 05/26/2016 9:58 AM
== END | disposition home or self-care (01) ==
LOC: C.MRIBC 08:00
PROVIDERS: ATTEND Orthopaedic Surgery
DX: M25.552 Pain in left hip (principal); M61.0 Myositis ossificans traumatica

== ENCOUNTER → 2016-07-07 | Outpatient (CLI) | payer OTHER ==
--- NOTE | 2016-07-07 16:46 | DIAGNOSTIC IMAGING REPORT ---
LEFT HIP CT CT DOSE: 1124.13 mGy.cm HISTORY: LEFT HIP PAIN/HETEROTOPIC OSSIFICATION TECHNIQUE: Multiaxial CT images of the left hip were performed and reformatted in the sagittal and coronal plane without the use of contrast. COMPARISON: Abdomen and pelvis CT 01/27/2014. Left hip MRI 05/26/2016. FINDINGS: Large area of ossification involving the proximal rectus femoris muscle is again noted. This fuses to the anterior inferior iliac spine. This measures approximately 11 cm in length and up to 6 cm in thickness. This favors an old avulsion injury of the rectus femoris muscle with associated myositis ossificans. No bony destruction or soft tissue mass identified. Small ossific densities at the proximal vastus medialis and lateralis muscles likely representing additional sites of old injury/myositis ossificans. No acute fracture or dislocation within the left hip. The left hip cartilage spaces maintained. The femoral head is intact. IMPRESSION: No significant change compared to the prior MRI. There is again noted a large area of ossification involving the proximal rectus femoris muscle. This is consistent with an old avulsion injury with associated myositis ossificans. This measures 11 x 6 cm. Additional smaller ossific densities at the proximal vastus medialis and lateralis muscles consistent with sites of old injury/myositis ossificans. Electronically signed by: Riaz Nguyen M.D. 07/07/2016 4:45 PM Dictated Date/Time: 07/07/2016 4:37 PM
== END | disposition home or self-care (01) ==
LOC: C.CTS 16:12
PROVIDERS: ATTEND Orthopaedic Surgery Sports Medicine
DX: M25.852 Other specified joint disorders, left hip (principal)

== ENCOUNTER 2016-07-08 23:18 | Emergency (ER) | payer OTHER ==
[~2016-07-08] VITALS: Ht 167.6 cm; Wt 110.0 kg
[~2016-07-08 23:18] MED LIST changes: -ALBINS/ INH; -ALBU18002 INH; -ATRINSX INH; -CEPH500C PO; -CHOLESTEROL MED PO; -CYCL5TAB PO; -IBUP-1050 PO; -INDO75CA PO; -OXYC-57 PO; -OXYC1TAB3 PO; -PHENSYP13 PO; -PRED50TA PO; -PRLSR20 PO; -RANI150T3 PO; -RANITIDINE PO; -UMEC1INH INH; -VNTHFA/IN INH; -[UNRECOGNIZED DRUG - OTHER] PO
[2016-07-08 23:21] VITALS: Ht 167.6 cm; Wt 110.0 kg
[2016-07-08] MEDS ORDERED: ALBUT/IPRATROP 3MG/0.5MG NEB 3 ML VIAL INH STA (23:29)
[2016-07-08] MEDS ORDERED: METHYLPREDNISOLONE 125 MG VIAL IV STA (23:32)
[2016-07-08 23:40] VITALS: O2SAT 93
[2016-07-09] LABS: BASO % 0.2 %; BASO ABS # 0.04 K/uL (0-0.2); COMPLETE YES; EOS % 0.5 %; HEMATOCRIT 43.5 % (42-52); IG% 1.2 %; LYMPH % 7.8 %; LYMPH ABS # 1.27 K/uL (1.2-3.4); MEAN CELL VOLUME 87.3 fL (80-100); MEAN CORPUSCULAR HEMOGLOBIN 28.7 pg (25-34); MEAN CORPUSCULAR HGB CONC 32.9 g/dl (32-36); MEAN PLATELET VOLUME 9.4 fL (7.4-10.4); MONO % 9.1 %; NEUT % 81.2 %; PLATELET COUNT 331 K/uL (130-400); RED BLOOD COUNT 4.98 M/uL (4.7-6.1); WHITE BLOOD COUNT 16.38 K/uL (4.8-10.8)
[2016-07-09] MEDS ORDERED: VNTHFA/IN INH (00:15)
[2016-07-09] MEDS ORDERED: ALBUT/IPRATROP 3MG/0.5MG NEB 3 ML VIAL INH STA (00:18)
[2016-07-09 00:29] LABS: CALCIUM 8.6 mg/dl (8.5-10.1); CREATININE 1.1 mg/dl (0.60-1.40); POTASSIUM 4.2 mmol/L (3.5-5.1)
--- NOTE | 2016-07-09 01:03 | EMERGENCY ROOM VISIT NOTE ---
History First contact with patient: 23:26 Chief Complaint: RESPIRATORY PROBLEMS Stated Complaint: COUGH, SOB- HX ASTHMA Nursing Triage Summary: pt reports cough and SOB that started 2 days ago that worsened tonight. hx asthma. History of Present Illness The patient is a 41 year old male who presents to the Emergency Room with complaints of cough and wheezing for the past few days that is progressively getting worse. Patient saw the family care Dr. 2 days ago was placed on Zithromax and prednisone 30 mg for 5 days. Patient tried his home nebulizer with no improvement of symptoms. Patient denies chest pain, fever, abdominal pain, leg pain or swelling, vomiting, diarrhea, sore throat, neck status, headache, lightheadedness or dizziness. He is tolerated by mouth fluids and food. Review of Systems See HPI for pertinent positives & negatives. A total of 10 systems reviewed and were otherwise negative. Past Medical/Surgical History Medical Problems: (1) Asthma, Unspecified (2) Hypertension Nos Family History Cancer Diabetes mellitus Gallbladder disease Heart disease Hypertension Kidney disease Kidney stones Lung disease Seizures Social History Smoking Status: Never Smoker Alcohol Use: occasionally Drug Use: none Marital Status: Housing Status: lives with family Occupation Status: unemployed Current/Historical Medications Scheduled Atorvastatin (Lipitor), 10 MG PO HS Azithromycin (Zithromax Z-Erik), 0 PO UD Fluticasone Propionate (Nasal) (Flonase Allergy Relief), 2 SPRAYS CARLOS DAILY Losartan Potassium (Cozaar), 25 MG PO DAILY Mometasone Furoate-Formoterol (Dulera 200/5 Mcg), 2 PUFFS INH BID Montelukast Sodium (Singulair), 10 MG PO DAILY Prednisone Tab (Prednisone), 30 MG PO DAILY Scheduled PRN Albuterol Hfa (Ventolin Hfa), 2 PUFFS INH Q6H PRN for SOB/Wheezing Ipratropium-Albuterol (Duoneb), 1 TREATMENT INH Q2H PRN for SOB/Wheezing Allergies Coded Allergies: Penicillins (Verified Allergy, Mild, RXN TO AMOXICILLIN (SEVERE RASH), ) SEVERE RASH Amoxicillin (Verified Allergy, Unknown, HIVES, 07/09/16) Physical Exam Vital Signs Date Time Temp Pulse Resp B/P Pulse Ox O2 Delivery O2 Flow Rate FiO2 07/09/16 00:24 116 28 127/95 94 Room Air 07/08/16 23:40 92 Room Air 3/14/17 23:40 93 Room Air 07/08/16 23:21 36.4 112 26 138/83 92 Room Air Physical Exam PHYSICAL EXAM: Vital Signs: Reviewed Nurse's notes. Oxygen saturation was 92% on room air. GENERAL: Pleasant male with audible wheeze, Alert, oriented and coherent. The patient is barely able to speak in complete sentences. NECK: Supple, non-tender. CHEST: Symmetrical expansion. + retractions + accessory muscle use. HEART: Regular rate and normal heart sounds, no murmur, gallop or rub. LUNGS: Breath sounds equal but significantly diminished in intensity on both sides. Bilateral wheezes heard but no rales or pleuritic rub. SKIN: The skin was without rashes, erythema, edema, or bruising. There is no tenting of the skin. Capillary reflex less than 2 seconds. HEAD: Normocephalic atraumatic. EARS: External auditory canals clear, tympanic membranes pearly lizarraga without erythema or effusion bilaterally. EYES: Pupils equal round and reactive to light and accommodation. Conjunctivae without injection, sclerae without icterus. Extraocular movements intact. NOSE: Patent, turbinates without inflammation or discharge. No sinus tenderness. MOUTH: Mucous membranes moist. Tonsils are not enlarged. Pharynx without erythema or exudate. Uvula midline. Airway patent. Tongue does not deviate. ABDOMEN: Positive bowel sounds x 4. Normal tympanic percussion. Soft, nontender, without masses or organomegaly. Day sign negative. No guarding or rebound tenderness. MUSCULOSKELETAL: No muscle atrophy, erythema, or edema noted. NEURO: Patient was alert and oriented to person place and time. Normal sensation to light and sharp touch. No focal neurological deficits. Medical Decision & Procedures Laboratory Results 07/08/16 23:45 Red Blood Count 4.98, Mean Corpuscular Volume 87.3, Mean Corpuscular Hemoglobin 28.7, Mean Corpuscular Hemoglobin Concent 32.9, Mean Platelet Volume 9.4, Neutrophils (%) (Auto) 81.2, Lymphocytes (%) (Auto) 7.8, Monocytes (%) (Auto) 9.1, Eosinophils (%) (Auto) 0.5, Basophils (%) (Auto) 0.2, Neutrophils # (Auto) 13.30, Lymphocytes # (Auto) 1.27, Monocytes # (Auto) 1.49, Eosinophils # (Auto) 0.09, Basophils # (Auto) 0.04 07/08/16 23:45 Test 07/08/16 23:45 White Blood Count 16.38 K/uL (4.8-10.8) Red Blood Count 4.98 M/uL (4.7-6.1) Hemoglobin 14.3 g/dL (14.0-18.0) Hematocrit 43.5 % (42-52) Mean Corpuscular Volume 87.3 fL (80-100) Mean Corpuscular Hemoglobin 28.7 pg (25-34) Mean Corpuscular Hemoglobin Concent 32.9 g/dl (32-36) Platelet Count 331 K/uL (130-400) Mean Platelet Volume 9.4 fL (7.4-10.4) Neutrophils (%) (Auto) 81.2 % Lymphocytes (%) (Auto) 7.8 % Monocytes (%) (Auto) 9.1 % Eosinophils (%) (Auto) 0.5 % Basophils (%) (Auto) 0.2 % Neutrophils # (Auto) 13.30 K/uL (1.4-6.5) Lymphocytes # (Auto) 1.27 K/uL (1.2-3.4) Monocytes # (Auto) 1.49 K/uL (0.11-0.59) Eosinophils # (Auto) 0.09 K/uL (0-0.5) Basophils # (Auto) 0.04 K/uL (0-0.2) RDW Standard Deviation 47.1 fL (36.4-46.3) RDW Coefficient of Variation 14.8 % (11.5-14.5) Immature Granulocyte % (Auto) 1.2 % Immature Granulocyte # (Auto) 0.19 K/uL (0.00-0.02) Anion Gap 12.0 mmol/L (3-11) Est Creatinine Clear Calc Drug Dose 100.7 ml/min Estimated GFR () 94.8 Estimated GFR (Non- 81.8 BUN/Creatinine Ratio 23.0 (10-20) Calcium Level 8.6 mg/dl (8.5-10.1) Chemistry Specimen Hemolysis Medications Administered Medications (Trade) Dose Ordered Sig/Norma Route Start Time Stop Time Status Last Admin Dose Admin Albuterol/ Ipratropium (Duoneb) 3 ml NOW STAT INH 07/08/16 23:29 07/08/16 23:30 DC 07/08/16 23:40 3 ML Methylprednisolone Sodium Succinate (Solu-Medrol IV) 125 mg NOW STAT IV 07/08/16 23:32 07/08/16 23:34 DC 07/08/16 23:49 125 MG Albuterol/ Ipratropium (Duoneb) 3 ml NOW STAT INH 07/09/16 00:18 07/09/16 00:19 DC 07/09/16 00:23 3 ML ED Course Prior records/ancillary studies reviewed. Triage Nursing notes reviewed. Additional history obtained from the family. The patient's history was concerning for respiratory difficulties. Differential diagnosis: Etiologies such as infections, reactive airway disease, pneumonia, pneumothorax , COPD, CHF, cardiac ischemia, pulmonary embolism, musculoskeletal, gastrointestinal, as well as others were entertained. Physical examination: As above. ER treatment provided: soluMedrol, nebulizer On reassessment the patient felt better. Diagnostic interpretation by me: The labs revealed leukocytosis most likely from prednisone use Imaging studies: Chest x-ray with no acute consolidation, pneumothorax or free air per my interpretation This appears to be consistent with asthma exacerbation. Patient felt much better after being medicated as above. Patient has a Long-standing history of asthma and symptoms are similar. He follows with Dr. ernandez. He is advised follow-up family care in a few days or here in the ER sooner for chest pain, difficulty breathing, fevers, worsening signs or symptoms or as needed. Patient was not hypoxic. He is able to speak in full sentences. By the evaluation outlined above emergent etiologies such as CHF, cardiac ischemia, pulmonary embolism, pneumonia, pneumothorax, musculoskeletal, serious bacterial infections, as well as others were deemed relatively unlikely. The pt informed about the findings as listed above. All questions were answered and pleased with the treatment. Return instructions were outlined and the patient was discharged in stable condition. Outpatient prescription management: Prednisone Referral: The patient was referred back to their primary care physician for follow-up in 2 to 3 days for a recheck of the current condition. Medical Decision As above Impression Primary Impression: Acute asthma exacerbation Departure Information Dispostion Home / Self-Care Condition GOOD Referrals Trice Chisholm PA-C (PCP) Patient Instructions [facility] Additional Instructions Albuterol Inhaler: Take 2 puffs four times daily for five days, then as needed. Or nebulizer every 4 hours Prednisone 50mg: Once daily until the prescription is finished. It is best to take this earlier in the day as some patients note occasional difficulty falling asleep when taken in the late evening. Acetaminophen(Tylenol) may be used for fever or pain. Use 1000mg every six hours as needed. Avoid using more than 3000mg in a 24 hour period. (AND/OR) Ibuprofen(Motrin, Advil) may be used for fever or pain. Use 600mg every six hours as needed. Take with food. Avoid using more than 2400mg in a 24 hour period. Do not use 2400mg per day for more than three consecutive days without physician direction. Prolonged inappropriate use can lead to stomach upset or ulcers. Rest and drink plenty of fluids. Avoid smoke/smoking, fumes, dust, or any triggers in the past that may have affected your breathing. Continue current medications. Return to the ER for chest pain, difficulty breathing, fevers, vomiting, worsening of your condition, or as needed. Follow up with your primary physician this week for a recheck of your current condition. Problem Qualifiers Primary Impression: Acute asthma exacerbation Asthma severity: unspecified severity Qualified Codes: J45.901 - Unspecified asthma with (acute) exacerbation
[2016-07-09] MEDS ORDERED: PRED50TA PO (01:05)
[2016-07-09 01:13] VITALS: BP 137/84; PULSE 120; TEMP 36.6; O2SAT 94
--- NOTE | 2016-07-09 07:10 | DIAGNOSTIC IMAGING REPORT ---
CHEST 2 VIEWS ROUTINE CLINICAL HISTORY: cough dyspnea COMPARISON STUDY: 05/15/2016 FINDINGS: The bones soft tissues and hemidiaphragms are normal. The cardiomediastinal silhouette is normal. The lungs are clear. The pulmonary vasculature is normal. IMPRESSION: Negative chest. Electronically signed by: Anton Andres M.D. 07/09/2016 7:09 AM Dictated Date/Time: 07/09/2016 7:09 AM
[2016-07-09] MEDS ORDERED: PRLSR20 PO (09:20)
[2016-07-09] MEDS ORDERED: [UNRECOGNIZED DRUG - OTHER] PO (09:20)
[2016-07-09] MEDS ORDERED: RANITIDINE PO (09:20)
[2016-07-09] MEDS ORDERED: CHOLESTEROL MED PO (09:20)
[2016-07-09] MEDS ORDERED: UMEC1INH INH (09:20)
[2016-07-09] MEDS ORDERED: IBUP-1050 PO (09:21)
[2016-07-17] MEDS ORDERED: RANI150T3 PO (09:45)
[2016-07-17] MEDS ORDERED: UMEC1INH INH (09:45)
[2016-07-17] MEDS ORDERED: ALBINS/ INH (09:45)
[2016-07-17] MEDS ORDERED: PRED20TA PO (09:45)
[2016-07-17] MEDS ORDERED: ATRINSX INH (09:45)
[2016-07-17] MEDS ORDERED: ALBU18002 INH (09:45)
[2016-07-17] MEDS ORDERED: CYCL5TAB PO (09:45)
[2016-07-17] MEDS ORDERED: OXYC1TAB3 PO (09:45)
[2016-07-17] MEDS ORDERED: PHENSYP13 PO (09:45)
[2016-07-24] MEDS ORDERED: OXYC1TAB3 PO (07:18)
[2016-07-24] MEDS ORDERED: INDO75CA PO (07:18)
[2016-08-07] MEDS ORDERED: OXYC1TAB3 PO (20:47)
[2016-08-08] MEDS ORDERED: CEPH500C PO (07:26)
[2016-09-05] MEDS ORDERED: INDO75CA PO (15:25)
[2016-09-10] MEDS ORDERED: OXYC-57 PO (14:47)
== END 2016-07-09 01:14 | disposition home or self-care (01) ==
LOC: C.EDB 23:19 → C.EDA 07-09 01:14
DX: J45.901 Unspecified asthma with (acute) exacerbation (principal); I10 Essential (primary) hypertension

== ENCOUNTER 2016-07-23 05:03 | Inpatient (IN) | payer OTHER ==
[2016-07-09 09:23] VITALS: BMI 38.0
--- NOTE | 2016-07-09 10:12 | PAT Medication Instructions ---
Service Date Jul 09, 2016. Current Home Medication List Albuterol Hfa (Ventolin Hfa), 2 PUFFS INH Q6H PRN for SOB/Wheezing Atorvastatin (Lipitor), 10 MG PO HS Azithromycin (Zithromax Z-Erik), 0 PO UD Fluticasone Propionate (Nasal) (Flonase Allergy Relief), 2 SPRAYS CARLOS QAM Ibuprofen (Advil), 1,000 MG PO PRN Ipratropium-Albuterol (Duoneb), 1 TREATMENT INH QID Losartan Potassium (Cozaar), 25 MG PO QAM Mometasone Furoate-Formoterol (Dulera 200/5 Mcg), 2 PUFFS INH BID Montelukast Sodium (Singulair), 10 MG PO QAM Omeprazole (Prilosec), 40 MG PO QAM Prednisone Tab (Prednisone), 50 MG PO QAM Umeclidinium [place] (Incruse Ellipta), 1 DOSE INH QAM [Ranitidine], 1 TAB PO HS Medication Instructions For Your Scheduled Surgery - Per surgeon instructions: Ibuprofen (Advil), 1,000 MG PO PRN - Hold the following medications the morning of surgery: Montelukast Sodium (Singulair), 10 MG PO QAM Losartan Potassium (Cozaar), 25 MG PO QAM - Take the following medications the morning of surgery with a sip of water: Prednisone Tab (Prednisone), 50 MG PO QAM Omeprazole (Prilosec), 40 MG PO QAM Mometasone Furoate-Formoterol (Dulera 200/5 Mcg), 2 PUFFS INH BID Ipratropium-Albuterol (Duoneb), 1 TREATMENT INH QID Fluticasone Propionate (Nasal) (Flonase Allergy Relief), 2 SPRAYS CARLOS QAM Albuterol Hfa (Ventolin Hfa), 2 PUFFS INH Q6H PRN for SOB/Wheezing Azithromycin (Zithromax Z-Erik), 0 PO UD Umeclidinium [place] (Incruse Ellipta), 1 DOSE INH QAM - Take the following medications as scheduled the night before surgery: [Ranitidine], 1 TAB PO HS Mometasone Furoate-Formoterol (Dulera 200/5 Mcg), 2 PUFFS INH BID Ipratropium-Albuterol (Duoneb), 1 TREATMENT INH QID Atorvastatin (Lipitor), 10 MG PO HS Albuterol Hfa (Ventolin Hfa), 2 PUFFS INH Q6H PRN for SOB/Wheezing If you have any questions please call us at [phone] (Sanaz Lauren PA-C) or [phone] or [phone]
[2016-07-09 10:36] LABS: BASO % 0.1 %; BASO ABS # 0.02 K/uL (0-0.2); COMPLETE YES; HEMATOCRIT 45.5 % (42-52); IG% 0.9 %; LYMPH ABS # 0.31 K/uL (1.2-3.4); MEAN CELL VOLUME 88.9 fL (80-100); MEAN CORPUSCULAR HEMOGLOBIN 29.5 pg (25-34); MEAN CORPUSCULAR HGB CONC 33.2 g/dl (32-36); MEAN PLATELET VOLUME 9.6 fL (7.4-10.4); MONO % 2.4 %; NEUT % 94.6 %; PLATELET COUNT 343 K/uL (130-400); RED BLOOD COUNT 5.12 M/uL (4.7-6.1); WHITE BLOOD COUNT 15.57 K/uL (4.8-10.8)
--- NOTE | 2016-07-09 10:39 | DIAGNOSTIC IMAGING REPORT ---
CHEST PREADMISSION(PA/LAT) CLINICAL HISTORY: PAT preoperative evaluation COMPARISON STUDY: None FINDINGS: The bones soft tissues and hemidiaphragms are normal. The cardiomediastinal silhouette is normal. The lungs are clear. The pulmonary vasculature is normal. IMPRESSION: Negative chest. Electronically signed by: Anton Andres M.D. 07/09/2016 10:37 AM Dictated Date/Time: 07/09/2016 10:36 AM
[2016-07-09 10:52] LABS: INR 1.1 (0.9-1.1); PROTHROMBIN TIME (PATIENT) 11.6 SECONDS (9.0-12.0)
[2016-07-09 10:54] LABS: BUN/CREATININE RATIO 18.9 (10-20); CREATININE 1.1 mg/dl (0.60-1.40); POTASSIUM 4.2 mmol/L (3.5-5.1)
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
[~2016-07-23] VITALS: Ht 167.6 cm; Wt 108.7 kg
[2016-07-23] VITALS (7 sets, daily range): BP systolic 122–136; BP diastolic 72–88; PULSE 95–115; TEMP 36.4–36.9; O2SAT 96–97; Ht 167.6 cm; Wt 108.7 kg
[~2016-07-23 05:03] MED LIST changes: +ALBINS/ INH; +ALBU18002 INH; -ALBUAER2 INH; +ATOR10TA82 PO; -ATOR10TA88 PO; +ATRINSX INH; -AZITTAB PO; +CYCL5TAB PO; +IBUP-1050 PO; -IPRASOL4 INH; +OXYC1TAB3 PO; +PHENSYP13 PO; -PRED10TA PO; +PRLSR20 PO; +RANI150T3 PO; +UMEC1INH INH; -UMECLIDINIUM INH; +VNTHFA/IN INH
[2016-07-23] MEDS ORDERED: CeleBREX 200 MG CAP PO SCH (06:00)
[2016-07-23] MEDS ORDERED: METOCLOPRAMIDE HCL 10 MG TAB PO SCH (06:00)
[2016-07-23] MEDS ORDERED: TRANEXAMIC ACID INJ 1,000 MG in SODIUM CHLORIDE 0.9% 100ML 100 ML IV SCH (06:00)
[2016-07-23] MEDS ORDERED: CEFAZOLIN 2000 MG/60 ML D5W 60 ML IV SCH (06:00)
[2016-07-23] MEDS ORDERED: LACTATED RINGER'S 1000ML 1,000 ML IV SCH ×2 (06:00)
[2016-07-23] MEDS ORDERED: ACETAMINOPHEN 500 MG TAB PO SCH (06:00)
[2016-07-23] MEDS ORDERED: SCOPOLAMINE 1.5 MG TDSY TD SCH (06:00)
--- NOTE | 2016-07-23 06:51 | History & Physical Bridge Note ---
H&P Re-Evaluation Bridge Note: I have examined the patient, reviewed the History & Physical and in the interval since the performance of the History & Physical I have noted the following changes of clinical significance: No changes noted
[2016-07-23] MEDS ORDERED: BACITRACIN 50000 UNIT VIAL ONE (07:02)
[2016-07-23] MEDS ORDERED: BUPIVACAINE/EPINEPHRINE 0.5% MPF 1:200,000 30 ML VIAL ONE (07:02)
[2016-07-23] MEDS ORDERED: FENTANYL CITRATE INJ 50 MCG/1 ML 2 ML VIAL ONE (07:04)
[2016-07-23] MEDS ORDERED: MIDAZOLAM HCL 1 MG/ML 2ML VIAL ONE ×2 (07:04→07:29)
[2016-07-23] MEDS ORDERED: GELATIN SPONGE 12-7MM ONE (07:05)
[2016-07-23] MEDS ORDERED: THROMBIN 5000 UNITS KIT ONE (07:05)
[2016-07-23] MEDS ORDERED: BUPIVACAINE 0.5 % 5 MG/1 ML PF 10ML VIAL ONE (07:15)
[2016-07-23] MEDS ORDERED: LACTATED RINGER'S 1000ML 1,000 ML IV PRN (07:30)
[2016-07-23] MEDS ORDERED: ONDANSETRON INJ 2 MG/ML 2 ML VIAL IV PRN ×2 (07:30→09:15)
[2016-07-23] MEDS ORDERED: KETOROLAC TROMETHAMINE 30 MG/ML VIAL ONE ×2 (07:33→08:58)
[2016-07-23] MEDS ORDERED: PHENYLEPHRINE 100MCG/ML 5ML SYR ONE (07:33)
[2016-07-23] MEDS ORDERED: TORADOL ONE (08:54)
--- NOTE | 2016-07-23 09:04 | DIAGNOSTIC IMAGING REPORT ---
INTRAOPERATIVE FLUOROSCOPIC IMAGE OF THE LEFT HIP CLINICAL HISTORY: Excision heterotopic ossification of left hip. COMPARISON STUDY: Left hip CT July 07, 2016. Fluoroscopy time: 22 seconds. FINDINGS: A single AP fluoroscopic image of the left hip was obtained. This demonstrates expected findings following resection of the extensive heterotopic ossification of the left hip. IMPRESSION: Intraoperative fluoroscopic image demonstrating resection of extensive left hip heterotopic ossification. Electronically signed by: Kj Ojeda M.D. 07/23/2016 9:03 AM Dictated Date/Time: 07/23/2016 9:01 AM
[2016-07-23] MEDS ORDERED: CYCLOBENZAPRINE HCL 10 MG TAB PO PRN (09:15)
[2016-07-23] MEDS ORDERED: DiphenhydrAMINE HCL 50 MG/ML VIAL IV PRN (09:15)
[2016-07-23] MEDS ORDERED: ALBUTEROL HFA 8 GM INHALER INH PRN (09:15)
[2016-07-23] MEDS ORDERED: MAGNESIUM HYDROXIDE SUSP 30 ML UDC PO PRN (09:15)
[2016-07-23] MEDS ORDERED: NON-FORMULARY MEDICATION (Albuterol Sulfate (Proair Respiclick) 2 PUFF) INH PRN (09:15)
[2016-07-23] MEDS ORDERED: BISACODYL 10 MG SUPP PR PRN (09:15)
[2016-07-23] MEDS ORDERED: ZOLPIDEM TARTRATE 5 MG TAB PO PRN (09:15)
[2016-07-23] MEDS ORDERED: ALUMINUM/MAGNESIUM/SIMETH (MAALOX MAX) 30 ML UDC PO PRN (09:15)
[2016-07-23] MEDS ORDERED: ALBUTEROL 0.083% NEBU SOLN 3 ML VIAL INH PRN (09:15)
[2016-07-23] MEDS ORDERED: METOCLOPRAMIDE HCL INJ 5 MG/ML 2 ML VIAL IV PRN (09:15)
[2016-07-23] MEDS ORDERED: OXYCODONE HCL IR 5 MG TAB (IMMEDIATE RELEASE) PO PRN (09:15)
--- NOTE | 2016-07-23 09:15 | [facility] Post Operative Brief Note ---
Immediate Operative Summary Operative Date Jul 23, 2016. Pre-Operative Diagnosis left hip heterotopic ossification Post-Operative Diagnosis SAME PREOP Procedure(s) Performed EXCISION HETEROTOPIC OSSIFICATION OF LEFT HIP Surgeon Dr. Nishant Arellano Floor Service Worker [place] Surgeon(s) Mynor Bell PA-C Estimated Blood Loss 100ML Findings Extensive Left Hip Heterotopic Ossification Fluids (cc crystalloids) 1700 cc Specimens A: left hip bone and tissue Drains HMV left Hip Anesthesia Spinal Complication(s) None Disposition Recovery Room / PACU
--- NOTE | 2016-07-23 09:50 | Anesthesiology Progress Note ---
Anesthesia Post Op Note Date & Time Jul 23, 2016 at 09:50 Vital Signs Pain Intensity: 4 Vital Signs Past 12 Hours Date Time Temp Pulse Resp B/P Pulse Ox O2 Delivery O2 Flow Rate FiO2 07/23/16 09:45 98 18 131/81 97 Nasal Cannula 3 07/23/16 09:35 90 18 126/80 97 Nasal Cannula 3 07/23/16 09:25 96 16 135/86 98 Nasal Cannula 3 07/23/16 09:16 36.9 95 18 121/73 97 Nasal Cannula 3 07/23/16 05:54 36.6 106 16 125/87 Room Air Notes Mental Status: alert / awake / arousable, participated in evaluation Pt Amnestic to Procedure: Yes Nausea / Vomiting: adequately controlled Pain: adequately controlled Airway Patency, RR, SpO2: stable & adequate BP & HR: stable & adequate Hydration State: stable & adequate Neuraxial Anesthesia: was administered, sensory block is resolving Anesthetic Complications: no major complications apparent Pt doing well.
[2016-07-23] MEDS: FENTANYL CITRATE INJ 50 MCG/1 ML 2 ML VIAL IV PRN ×2 (09:57→10:02)
[2016-07-23] MEDS: MoRPHine SULFATE 2 MG/ML CARP IV PRN ×2 (11:21→13:41)
[2016-07-23] MEDS: D5W AND 1/2NSS + 20MEQ KCL 1,000 ML IV SCH ×2 (11:54→20:29)
[2016-07-23] MEDS: OXYCODONE HCL IR 5 MG TAB (IMMEDIATE RELEASE) PO PRN ×2 (11:56→20:38)
[2016-07-23] MEDS: FERROUS GLUCONATE 324 MG TAB PO SCH ×2 (12:30→18:06)
[2016-07-23] MEDS: ACETAMINOPHEN 500 MG TAB PO SCH ×2 (13:36→21:41)
[2016-07-23] MEDS: CEFAZOLIN IV 2,000 MG in DEXTROSE 5% 50ML 50 ML IV SCH ×2 (13:37→21:56)
[2016-07-23] MEDS: CHECK SCOPOLAMINE PATCH PLACEMENT SCH (16:00)
[2016-07-23] MEDS: HYDROCORTISONE IV 100 MG in SYRINGE 0 ML IV SCH (18:06)
[2016-07-23] MEDS: KETOROLAC TROMETHAMINE 30 MG/ML VIAL IV. SCH (18:07)
--- NOTE | 2016-07-23 20:39 | PROGRESS NOTE ---
DATE: 07/23/2016 SUBJECTIVE: A 41-year-old gentleman, postop from a heterotopic ossification excision earlier today. He is doing pretty well. He just described a burning sensation in his leg. No chest pain or shortness of breath. Not feeling dizzy or lightheaded. OBJECTIVE: VITAL SIGNS: Temperature is 36.9. Vital signs stable. He is intermittently tachycardic. PHYSICAL EXAMINATION: GENERAL: Reveals a healthy, pleasant, middle-aged male. He is sitting up in bed and talking to his significant other. Looks pretty comfortable. He is breathing well. LUNGS: Clear to auscultation. HEART: Regular rate and rhythm. ABDOMEN: Soft, nontender, nondistended. EXTREMITIES: Grossly neurovascularly intact except as follows: Examination of the left lower extremity reveals his leg to be well aligned. His dressing is clean, dry, and intact. He can dorsiflex and plantarflex his foot appropriately. He is neurologically intact. ASSESSMENT: A 41-year-old gentleman, postop from a left hip heterotopic ossification excision, doing pretty well. His pain is controlled. PLAN: He is going to get radiation treatment tomorrow. We will pull the drain tomorrow if everything looks appropriate. We will start him on some therapy. He can weightbear as tolerated. We will likely discharge tomorrow if doing okay.
[2016-07-23] MEDS ORDERED: MONTELUKAST SOD 10 MG TAB PO SCH (21:00)
[2016-07-23] MEDS ORDERED: ATORVASTATIN 10 MG TAB PO SCH (21:00)
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
[2016-07-23] MEDS: ASPIRIN 325 MG ECTAB PO SCH (21:41)
[2016-07-23] MEDS: DOCUSATE SODIUM 100 MG CAP PO SCH (21:42)
[2016-07-24] VITALS (7 sets, daily range): BP systolic 127–155; BP diastolic 80–92; PULSE 88–102; TEMP 36.3–37.2; O2SAT 94–98
[2016-07-24] MEDS: KETOROLAC TROMETHAMINE 30 MG/ML VIAL IV. SCH ×3 (00:02→12:00)
[2016-07-24] MEDS: CHECK SCOPOLAMINE PATCH PLACEMENT SCH ×2 (00:02→07:21)
[2016-07-24] MEDS: D5W AND 1/2NSS + 20MEQ KCL 1,000 ML IV SCH ×2 (01:05→07:22)
[2016-07-24] MEDS: HYDROCORTISONE IV 100 MG in SYRINGE 0 ML IV SCH ×2 (02:09→09:35)
[2016-07-24] MEDS: OXYCODONE HCL IR 5 MG TAB (IMMEDIATE RELEASE) PO PRN ×3 (03:53→15:02)
[2016-07-24] MEDS: ACETAMINOPHEN 500 MG TAB PO SCH ×2 (06:35→14:32)
[2016-07-24 06:51] LABS: BUN/CREATININE RATIO 24.8 (10-20); CALCIUM 7.9 mg/dl (8.5-10.1); CREATININE 0.97 mg/dl (0.60-1.40); POTASSIUM 4.5 mmol/L (3.5-5.1)
[2016-07-24] MEDS ORDERED: OXYC1TAB3 PO (07:18)
[2016-07-24] MEDS ORDERED: INDO75CA PO (07:18)
--- NOTE | 2016-07-24 07:21 | Discharge Instructions ---
Discharge Instructions Date of Service Jul 24, 2016. Admission Reason for Admission: Left Hip Heterotopic Ossification Discharge Discharge Diagnosis / Problem: Left Hip HO Resection Discharge Goals Goal(s): Decrease discomfort, Improve function, Increase independence, Improve disease control, Therapeutic intervention Activity Recommendations Activity Limitations: resume your previous activity Weightbearing Status: Left weightbearing . Instructions / Follow-Up Instructions / Follow-Up Change bandage 07/25/16 May shower once bandage removed May fully weight-bear as tolerated. Current Hospital Diet Patient's current hospital diet: Regular Diet Discharge Diet Recommended Diet: Regular Diet Procedures Procedures Performed: EXCISION HETEROTOPIC OSSIFICATION OF LEFT HIP Pending Studies Studies pending at discharge: no Medical Emergencies . Who to Call and When: Medical Emergencies: If at any time you feel your situation is an emergency, please call 911 immediately. . Non-Emergent Contact Non-Emergency issues call your: Surgeon . "Provider Documentation" section prepared by Carlin Arellano. VTE Core Measure Inpt VTE Proph given/why not?: Other Anticoagulation, T.E.D. Stockings, SCD's
--- NOTE | 2016-07-24 07:42 | PROGRESS NOTE ---
DATE: 07/24/2016 SUBJECTIVE: 41-year-old gentleman postop day 1 from a heterotopic ossification of the hip removal. He is doing pretty well. Was up and around and walked around. His says his pain is manageable. No chest pain or shortness of breath. Not feeling dizzy or lightheaded. OBJECTIVE: VITAL SIGNS: Temperature 37.2. Vital signs stable. PHYSICAL EXAMINATION: Reveals a healthy, pleasant, middle-aged male. He is lying in bed, looks pretty comfortable. Examination of the left thigh reveals the dressing to be clean, dry and intact. It has been marked for radiation treatment. He can dorsiflex and plantarflex his foot appropriately. He is neurologically intact. ASSESSMENT: 41-year-old gentleman postop day 1 from heterotopic ossification removal from the left hip, doing pretty well. Pain seems to be controlled. Pretty minimal drainage from his drain site. PLAN: 1. DVT prophylaxis including thigh-high TEDS, SCDs, and aspirin twice a day. 2. PT/OT. Will get him some therapy today and make sure he is getting around reasonably. 3. Radiation treatment. He is scheduled for radiation treatment today. 4. HO prevention. He is getting radiation treatment and we are going to put him on some Indocin on discharge. He is currently on Toradol. 5. Disposition: Plan to discharge to home and I will see him back in about 2 weeks.
--- NOTE | 2016-07-24 08:36 | Anesthesiology Progress Note ---
Anesthesia Post Op Note Date & Time Jul 24, 2016 at 08:36 Vital Signs Pain Intensity: 7.0 Vital Signs Past 12 Hours Date Time Temp Pulse Resp B/P Pulse Ox O2 Delivery O2 Flow Rate FiO2 07/24/16 08:13 Room Air 07/24/16 07:47 36.3 88 20 127/80 97 Room Air 07/24/16 06:12 100 16 98 Room Air 07/24/16 03:54 37.2 96 18 155/92 94 Room Air 07/24/16 00:25 36.6 102 20 133/86 96 Room Air 07/24/16 00:09 Room Air Notes Mental Status: alert / awake / arousable, participated in evaluation Pt Amnestic to Procedure: Yes Nausea / Vomiting: adequately controlled Pain: adequately controlled Airway Patency, RR, SpO2: stable & adequate BP & HR: stable & adequate Hydration State: stable & adequate Neuraxial Anesthesia: sensory block resolved Anesthetic Complications: no major complications apparent
[2016-07-24] MEDS ORDERED: RANITIDINE HCL 150 MG TAB PO SCH (09:00)
[2016-07-24] MEDS ORDERED: LOSARTAN POTASSIUM 25 MG TAB PO SCH (09:00)
[2016-07-24] MEDS ORDERED: FLUTICASONE PROPIONATE NA SPR 16 GM BTL NAE SCH (09:00)
[2016-07-24] MEDS ORDERED: NON-FORMULARY MEDICATION (Umeclidinium Bromide (Incruse Ellipta) 1 PUFF) INH SCH (09:00)
[2016-07-24] MEDS ORDERED: PANTOprazole SOD 40 MG TAB PO SCH (09:00)
[2016-07-24] MEDS ORDERED: MULTIVITAMIN TAB PO SCH (09:00)
[2016-07-24] MEDS ORDERED: NON-FORMULARY MEDICATION (Omeprazole (Prilosec) 20 MG) PO SCH (09:00)
[2016-07-24] MEDS: FERROUS GLUCONATE 324 MG TAB PO SCH ×2 (09:33→12:08)
[2016-07-24] MEDS: DOCUSATE SODIUM 100 MG CAP PO SCH (09:34)
[2016-07-24] MEDS: ASPIRIN 325 MG ECTAB PO SCH (09:34)
--- NOTE | 2016-07-31 01:55 | DISCHARGE SUMMARY ---
ADMITTING PHYSICIAN AND SURGEON: Dr. Arellano. ADMITTING DIAGNOSIS: Left hip symptomatic heterotopic ossification, status post trauma. PROCEDURE: Excision of left hip heterotopic ossification. SECONDARY DIAGNOSES: Hypertension, elevated cholesterol, asthma, obesity, low back pain, and gastroesophageal reflux disease. CONSULTS: None obtained. HISTORY AND PHYSICAL EXAMINATION: Well documented in the patient's chart. HOSPITAL COURSE: The patient was admitted on 07/23/2016, underwent excision of the heterotopic bone, tolerated the procedure well. There were no complications. He was transferred to PACU postoperatively and later to the orthopedic floor for further care. He was given Ancef for antibiotic prophylaxis, FLOYD stockings, SCDs and aspirin for DVT prophylaxis. Vital signs were monitored during his hospital stay and remained stable. There were no complications. He did have radiation treatment postoperatively during his hospital stay as well and was placed on Indocin upon discharge. There were no complications. By postoperative day #1, he was tolerating a general diet. Pain was controlled with oral pain medicine. He has had no signs or symptoms of deep vein thrombosis. On postop day #1, he was discharged home in good condition. He was given a prescription for Indocin 75 mg b.i.d. Continue his home medications with the exception of ibuprofen, which he is told to stop. He is given a new prescription for oxycodone for pain. He is weightbearing as tolerated. Follow up with Dr. Arellano in about 2 weeks or sooner if there are any problems or concerns.
[2016-09-05] MEDS ORDERED: INDO75CA PO (15:25)
[2016-09-10] MEDS ORDERED: OXYC-57 PO (14:47)
== END 2016-07-24 15:10 | disposition home or self-care (01) | DRG 499 ==
LOC: ENRESERVTM → ENRESERVDT → C.ACU 05:03 → C.MSN 09:24
PROVIDERS: ADMIT Orthopaedic Surgery Sports Medicine; ATTEND Orthopaedic Surgery Sports Medicine
PROC: 0QB70ZZ Excision of Left Upper Femur, Open Approach (ICD-10-PCS; principal; 2016-07-23 07:15)
PROC: DP092ZZ Beam Radiation of Femur using Photons >10 MeV (ICD-10-PCS; 2016-07-24)
DX: M61.0 Myositis ossificans traumatica (principal); T14.90 Injury, unspecified; V29.9XXS Motorcycle rider (driver) (passenger) injured in unspecified traffic accident, sequela; J45.909 Unspecified asthma, uncomplicated; G89.29 Other chronic pain; M54.9 Dorsalgia, unspecified; I10 Essential (primary) hypertension; K21.9 Gastro-esophageal reflux disease without esophagitis; E78.00 Pure hypercholesterolemia, unspecified; J44.9 Chronic obstructive pulmonary disease, unspecified; G47.33 Obstructive sleep apnea (adult) (pediatric); G62.9 Polyneuropathy, unspecified; E66.9 Obesity, unspecified; Z68.38 Body mass index [BMI] 38.0-38.9, adult; Z79.51 Long term (current) use of inhaled steroids; Z79.52 Long term (current) use of systemic steroids; Z79.899 Other long term (current) drug therapy; Z79.891 Long term (current) use of opiate analgesic

== ENCOUNTER 2016-08-06 11:55 | Inpatient (IN) | payer OTHER ==
[~2016-08-06] VITALS: Ht 167.6 cm; Wt 105.2 kg
[2016-08-06] VITALS (7 sets, daily range): BP systolic 106–150; BP diastolic 58–82; PULSE 102–121; TEMP 36.4–37.2; O2SAT 95–98; Ht 167.6 cm; Wt 105.2 kg
[~2016-08-06 11:55] MED LIST changes: -IBUP-1050 PO; +INDO75CA PO
[2016-08-06] MEDS ORDERED: SODIUM CHLORIDE 0.9% 1000ML 1,000 ML IV SCH (13:18)
[2016-08-06] MEDS ORDERED: ALBUTEROL HFA 8 GM INHALER INH PRN (13:30)
[2016-08-06] MEDS ORDERED: ALBUTEROL 0.083% NEBU SOLN 3 ML VIAL INH PRN (13:30)
[2016-08-06] MEDS ORDERED: NON-FORMULARY MEDICATION (Albuterol Sulfate (Proair Respiclick) 2 PUFF) INH PRN (13:30)
[2016-08-06] MEDS ORDERED: IPRATROPIUM BROMIDE NEB SOLN 0.02% 2.5 ML VIAL INH PRN (13:30)
[2016-08-06] MEDS ORDERED: NURSING VERBAL MED ORDER STA (13:31)
[2016-08-06] MEDS ORDERED: CEFAZOLIN IV 2,000 MG/60 ML D5W IV ONE (13:39)
[2016-08-06] MEDS ORDERED: IV FLUIDS COMPLETED PRN (13:45)
[2016-08-06 13:48] LABS: HEMATOCRIT 36.8 % (42-52); MEAN CELL VOLUME 84.2 fL (80-100); MEAN CORPUSCULAR HEMOGLOBIN 28.1 pg (25-34); MEAN PLATELET VOLUME 8.6 fL (7.4-10.4); PLATELET COUNT 379 K/uL (130-400); RED BLOOD COUNT 4.37 M/uL (4.7-6.1)
--- NOTE | 2016-08-06 14:11 | HISTORY & PHYSICAL EXAMINATION ---
DATE OF ADMISSION: 08/06/2016 CHIEF COMPLAINT: Left hip pain and bleeding after heterotopic ossification excision. HISTORY OF PRESENT ILLNESS: This 41-year-old gentleman who is now 2 weeks out from excision of a large heterotopic ossification from the left anterior hip area. He was doing pretty well and decided to try and tear a motor apart 2 days ago. He was doing a lot of bending and squatting and when he got up, felt a pull in his left hip area. Since then, he has had increased pain, discomfort, swelling and then just yesterday he started bleeding out of his wound. He called in, we had him put some pressure on it and lie supine for a while. It did decrease, but continued to ooze slightly. Then he got up this morning, started walking around more and it started draining more. The patient presented to the clinic. He has got a swollen left hip incision area with obvious bleeding coming out. His pain is actually a little bit better. No fevers. There has been no signs of infection. The patient is now indicated for I\T\D of his hip hematoma. PAST MEDICAL HISTORY: 1. Hypertension. 2. Elevated cholesterol. 3. Asthma. 4. Obesity. 5. Low back pain. 6. Gastroesophageal reflux disease. PAST SURGICAL HISTORY: Include: 1. Right femur IM nailing. 2. Back surgery. 3. Stomach surgery. 4. Left heterotopic ossification excision 2 weeks ago. ALLERGIES: AMOXICILLIN, WHICH CAUSES HIVES. No respiratory problems. CURRENT MEDICINES: Include 1. Montelukast. 2. Losartan. 3. Atrovent. 4. Omeprazole. 5. Dulera inhaler. 6. Incruse inhaler. 7. Ventolin inhaler. 8. DuoNeb. 9. Prednisone 10 mg. 10. Oxycodone. 11. Indomethacin twice a day. SOCIAL HISTORY: A 41-year-old male. 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 He is . Does have a girlfriend. FAMILY HISTORY: Significant for heart disease, stroke, diabetes and cancer. REVIEW OF SYSTEMS: Negative for diabetes. Denies any current chest pain or current shortness of breath. No known bleeding disorders. PHYSICAL EXAMINATION: GENERAL: Reveals a pleasant, short, cushingoid appearing male who is lying in bed, looks reasonably comfortable. LUNGS: Clear to auscultation. No major wheezing. HEART: Has a regular rate and rhythm. ABDOMEN: Soft, nontender, nondistended. EXTREMITIES: Grossly neurovascularly intact except as follows: Examination of left hip reveals his incision to be well approximated. There is bleeding coming out from the superior aspect of the incision. He does have quite a bit of chronic hemorrhage in his thigh and down his leg but no real localized area. Some moderate swelling around the hip incision consistent with a hematoma. He is neurologically intact. ASSESSMENT: A 41-year-old gentleman 2 weeks out from excision of a large heterotopic ossification area with a what looks to be a hematoma. I do not think there is active infection, but I do think he has got a hematoma that he probably has stirred up 2 days ago when he was pulling apart an engine. PLAN: We talked about treatment options. I do think it is best to explore this and wash it out and get rid of the hematoma. I think will help him symptomatically and I also think it decreases his likely of having recurrent heterotopic ossification. The risks and benefits of this procedure were explained to the patient. We are going to proceed with an I\T\D. Will keep him overnight and see how things come along and maybe be able to discharge him tomorrow depending on how things look and how he responds. DEWAYNE
[2016-08-06] MEDS ORDERED: BUPIVACAINE/EPINEPHRINE 0.5% MPF 1:200,000 30 ML VIAL ONE (14:14)
[2016-08-06] MEDS ORDERED: BACITRACIN 50000 UNIT VIAL ONE ×2 (14:15→15:23)
[2016-08-06 14:17] LABS: BUN/CREATININE RATIO 26.7 (10-20); CALCIUM 8.9 mg/dl (8.5-10.1); CREATININE 1.2 mg/dl (0.60-1.40); POTASSIUM 4.5 mmol/L (3.5-5.1)
[2016-08-06 14:21] LABS: MEAN CORPUSCULAR HGB CONC 33.4 g/dl (32-36)
[2016-08-06] MEDS ORDERED: LACTATED RINGER'S 1000ML 1,000 ML IV PRN (14:33)
[2016-08-06] MEDS ORDERED: FENTANYL CITRATE INJ 50 MCG/1 ML 2 ML VIAL IV PRN (14:45)
[2016-08-06] MEDS ORDERED: ONDANSETRON INJ 2 MG/ML 2 ML VIAL IV PRN ×2 (14:45→16:45)
[2016-08-06] MEDS ORDERED: BUPIVACAINE 0.5 % 5 MG/1 ML PF 10ML VIAL ONE (15:08)
[2016-08-06] MEDS ORDERED: MIDAZOLAM HCL 1 MG/ML 2ML VIAL ONE ×2 (15:08)
[2016-08-06] MEDS ORDERED: PHENYLEPHRINE 100MCG/ML 5ML SYR ONE (15:50)
[2016-08-06] MEDS ORDERED: KETOROLAC TROMETHAMINE 30 MG/ML VIAL ONE ×2 (15:57→16:02)
--- NOTE | 2016-08-06 16:34 | [facility] Post Operative Brief Note ---
Immediate Operative Summary Operative Date Aug 06, 2016. Pre-Operative Diagnosis Left hip hematoma Post-Operative Diagnosis same as preop Procedure(s) Performed Left Hip Hematoma Incision, Drainage, and Irrigation Surgeon Dr. Carlin Arellano Record Pressman Surgeon(s) Mynor Bell PA-C Estimated Blood Loss 50 ml Findings Left Hip Hematoma Fluids (cc crystalloids) 1700 cc Specimens Culture #1-Left hip hemtoma: Aerobic and anaerobic culture sent routine for gram stain, culture and sensitivity Drains HMV LEft HIp Anesthesia Spinal Complication(s) None Disposition Recovery Room / PACU
[2016-08-06] MEDS ORDERED: CYCLOBENZAPRINE HCL 10 MG TAB PO PRN (16:45)
[2016-08-06] MEDS ORDERED: BISACODYL 10 MG SUPP PR PRN (16:45)
[2016-08-06] MEDS ORDERED: MAGNESIUM HYDROXIDE SUSP 30 ML UDC PO PRN (16:45)
[2016-08-06] MEDS ORDERED: ZOLPIDEM TARTRATE 5 MG TAB PO PRN (16:45)
[2016-08-06] MEDS ORDERED: OXYCODONE HCL IR 5 MG TAB (IMMEDIATE RELEASE) PO PRN (16:45)
[2016-08-06] MEDS ORDERED: DiphenhydrAMINE HCL 50 MG/ML VIAL IV PRN (16:45)
[2016-08-06] MEDS ORDERED: MoRPHine SULFATE 2 MG/ML CARP IV PRN (16:45)
[2016-08-06] MEDS ORDERED: ALUMINUM/MAGNESIUM/SIMETH (MAALOX MAX) 30 ML UDC PO PRN (16:45)
--- NOTE | 2016-08-06 17:07 | Anesthesiology Progress Note ---
Anesthesia Post Op Note Date & Time Aug 06, 2016 at 17:06 Vital Signs Pain Intensity: 0 Vital Signs Past 12 Hours Date Time Temp Pulse Resp B/P Pulse Ox O2 Delivery O2 Flow Rate FiO2 08/06/16 16:55 102 20 91/55 100 Nasal Cannula 2 08/06/16 16:45 114 20 92/56 100 Mask 10 08/06/16 16:39 36.5 115 15 100/60 100 Mask 10 08/06/16 12:23 36.7 121 20 112/70 96 Room Air Notes Mental Status: alert / awake / arousable, participated in evaluation Pt Amnestic to Procedure: No (recall as expected) Nausea / Vomiting: adequately controlled Pain: adequately controlled Airway Patency, RR, SpO2: stable & adequate BP & HR: stable & adequate Hydration State: stable & adequate Neuraxial Anesthesia: was administered, sensory block is resolving Anesthetic Complications: no major complications apparent Pt doing well.
[2016-08-06] MEDS: D5W AND 1/2NSS + 20MEQ KCL 1,000 ML IV SCH (20:35)
[2016-08-06] MEDS: FERROUS GLUCONATE 324 MG TAB PO SCH (20:36)
[2016-08-06] MEDS: DOCUSATE SODIUM 100 MG CAP PO SCH (20:58)
[2016-08-06] MEDS: ATORVASTATIN 10 MG TAB PO SCH (20:58)
[2016-08-06] MEDS: OXYCODONE HCL IR 5 MG TAB (IMMEDIATE RELEASE) PO PRN (20:58)
[2016-08-06] MEDS ORDERED: INDOMETHACIN 75 MG CAPCR PO SCH (21:00)
[2016-08-06] MEDS: CEFAZOLIN IV 2,000 MG in DEXTROSE 5% 50ML 50 ML IV SCH (21:49)
[2016-08-06] MEDS: KETOROLAC TROMETHAMINE 30 MG/ML VIAL IV. SCH (21:50)
[2016-08-06] MEDS: ACETAMINOPHEN 500 MG TAB PO SCH (21:51)
[2016-08-07] MEDS ORDERED: NURSING DECISION MEDICATION ORDER SCH (00:45)
[2016-08-07 03:08] VITALS: BP 114/78; PULSE 91; TEMP 36.6; O2SAT 98
[2016-08-07] MEDS: KETOROLAC TROMETHAMINE 30 MG/ML VIAL IV. SCH ×4 (04:35→21:15)
[2016-08-07] MEDS: D5W AND 1/2NSS + 20MEQ KCL 1,000 ML IV SCH ×2 (04:36→13:43)
[2016-08-07] MEDS: ACETAMINOPHEN 500 MG TAB PO SCH ×3 (05:39→21:16)
[2016-08-07] MEDS: CEFAZOLIN IV 2,000 MG in DEXTROSE 5% 50ML 50 ML IV SCH ×3 (05:39→21:23)
--- NOTE | 2016-08-07 07:10 | OPERATIVE REPORT ---
DATE OF OPERATION: 08/06/2016 SURGEON: Carlin Arellano MD HAND SPRAY OPERATOR: RUTH Godfrey. PREOPERATIVE DIAGNOSIS: Left draining hip hematoma status post excision of a large heterotopic ossification. POSTOPERATIVE DIAGNOSIS: Same. PROCEDURE PERFORMED: Irrigation and debridement of left hip hematoma. COMPLICATIONS: None. ESTIMATED BLOOD LOSS: 50 mL. FLUID REPLACEMENT: 1700 mL crystalloid fluid replacement. ANESTHESIA: Spinal. DRAINS: Hemovac drain. SPECIMENS: Fluid sent for stat Gram stain, aerobic and anaerobic culture. 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 He was doing quite well and then 2 days ago, he decided to go into his garage and take apart an engine. At one point, he kind of stood up and felt a tearing sensation in his left hip area. That evening he developed increased pain and discomfort. The following day, he started developing some drainage from his incision site. He presented to the office today with a draining hip wound. It was felt like this was most likely a hematoma that needed to be evacuated. He did have quite a bit of pain 2 days ago, but it has subsided since it has been draining. He has had no fever or signs of infection. The patient indicated for irrigation and debridement. OPERATIVE FINDINGS: Operative findings revealed a large hip hematoma. The deep capsular tissues had kind of dehisced off the iliac crest. There were no signs of infection or purulence. There was no acute bleeding or active bleeding, just retained blood and clot. OPERATIVE PROCEDURE: The patient taken to the operating room, identified and placed on the operating table in supine position. All contact areas were appropriately padded. IV antibiotics were provided by the anesthesia team. A spinal anesthetic had been implemented in the holding area. A bump was placed underneath the left hip. The left hip and leg area were then scrubbed with Hibiclens and then prepped with ChloraPrep. The left hip was prepped and draped in the usual sterile fashion. The previous incision was opened up entirely. All sutures were removed. Upon opening the wound, there was obvious acute decompression of the hematoma. There was both a significant amount of fluid as well as clot. I did culture the base of the wound area. This was sent for stat Gram stain, aerobic and anaerobic culture. The wound was then evacuated. I irrigated this extensively with 6 liters of pulsatile lavage solution with bacitracin in it. At this point, the wound looked clean. I did try to reclose some of the deep fascia with #1 PDS suture in a [id number] fashion. I could get some of it closed but some of it just had poor tissue characteristics. I did place a Hemovac drain in the very depths of the wound around the iliac crest area and brought it out inferolaterally. I then closed the skin with a combination of #1 Prolene sutures in a vertical mattress fashion and 3-0 nylon suture in a simple fashion. The tissue quality of the subQ tissues was not very good and I did not feel like it could hold a very good stitch. The drain was activated. A sterile dressing composed of Xeroform, 4 x 4's, and an OpSite dressing were applied. The patient was then transferred to the recovery room in stable condition. The patient tolerated the procedure well with no complications. All needle and sponge counts were correct at the end of the operation. I attest to the content of the Intraoperative Record and any orders documented therein. Any exceptions are noted below. DEWAYNE
[2016-08-07 07:29] VITALS: BP 120/75; PULSE 92; TEMP 36.4; O2SAT 96
--- NOTE | 2016-08-07 07:40 | ORTHOPEDIC PROGRESS NOTE ---
DATE: 08/07/2016 SUBJECTIVE: Cl is a 41-year-old male who is now postoperative day #1 from an I\T\D of a left hip hematoma. He is doing pretty well at this point. Is sitting in a chair at bedside. Pain is controlled. He has been up and walking some. No other complaints at this time. OBJECTIVE: He is alert, oriented in no distress, sitting at the bedside. Dressing on the left hip area is clean, dry and intact. Drain is still in place. IMPRESSION: Postop day #1 from an I\T\D of a left hip hematoma after previous HO resection. PLAN: He is doing pretty well at this point. A little bit of pain with the left leg and around the incision area, but otherwise the pain is controlled. We will plan to keep him today and leave the drain in place. Plan for likely discharge home tomorrow. We may keep him on some antibiotics. Continue Toradol for pain control and for HO prophylaxis. He will continue weightbearing as tolerated. Continue FLOYD stockings, SCDs and aspirin for DVT prophylaxis. He was seen and examined by Dr. Arellano today as well.
[2016-08-07] MEDS: RANITIDINE HCL 150 MG TAB PO SCH (08:53)
[2016-08-07] MEDS: PANTOprazole SOD 40 MG TAB PO SCH (08:53)
[2016-08-07] MEDS: MONTELUKAST SOD 10 MG TAB PO SCH (08:53)
[2016-08-07] MEDS: ASPIRIN 325 MG ECTAB PO SCH (08:54)
[2016-08-07] MEDS: DOCUSATE SODIUM 100 MG CAP PO SCH ×2 (08:54→21:00)
[2016-08-07] MEDS: LOSARTAN POTASSIUM 25 MG TAB PO SCH (08:54)
[2016-08-07] MEDS: MULTIVITAMIN TAB PO SCH (08:54)
[2016-08-07] MEDS: FLUTICASONE PROPIONATE NA SPR 16 GM BTL NAE SCH (08:54)
[2016-08-07] MEDS: FERROUS GLUCONATE 324 MG TAB PO SCH ×3 (08:54→18:30)
[2016-08-07] MEDS ORDERED: NON-FORMULARY MEDICATION (Umeclidinium Bromide (Incruse Ellipta) 1 PUFF) INH SCH (09:00)
[2016-08-07] MEDS ORDERED: PANTOprazole SOD 40 MG TAB PO SCH (09:00)
--- NOTE | 2016-08-07 10:40 | Anesthesiology Progress Note ---
Anesthesia Post Op Note Date & Time Aug 07, 2016 at 10:38 Vital Signs Vital Signs Past 12 Hours Date Time Temp Pulse Resp B/P Pulse Ox O2 Delivery O2 Flow Rate FiO2 08/07/16 07:52 Room Air 08/07/16 07:29 36.4 92 18 120/75 96 Room Air 08/07/16 03:08 36.6 91 18 114/78 98 Nasal Cannula 2.0 08/07/16 00:15 Nasal Cannula 2.0 08/06/16 23:50 36.4 102 18 119/78 98 Nasal Cannula 2.0 Notes Mental Status: alert / awake / arousable, participated in evaluation Pt Amnestic to Procedure: Yes Nausea / Vomiting: adequately controlled Pain: adequately controlled Airway Patency, RR, SpO2: stable & adequate BP & HR: stable & adequate Hydration State: stable & adequate Neuraxial Anesthesia: sensory block resolved Anesthetic Complications: no major complications apparent
[2016-08-07 12:49] VITALS: BP 149/97; TEMP 36.4; O2SAT 97
[2016-08-07 15:29] VITALS: BP 147/89; PULSE 113; TEMP 36.8; O2SAT 96
[2016-08-07] MEDS: OXYCODONE HCL IR 5 MG TAB (IMMEDIATE RELEASE) PO PRN (18:31)
[2016-08-07] MEDS ORDERED: OXYC1TAB3 PO (20:47)
--- NOTE | 2016-08-07 20:52 | Discharge Instructions ---
Discharge Instructions Date of Service Aug 07, 2016. Admission Reason for Admission: Left Hip Ossification Discharge Discharge Diagnosis / Problem: Left Hip Hematoma Discharge Goals Goal(s): Decrease discomfort, Improve function, Improve disease control, Therapeutic intervention Activity Recommendations Activity Limitations: per Instructions/Follow-up section Lifting Limitations: no more than 25 pounds Exercise/Sports Limitations: none May Resume Sexual Activity: after two weeks Shower/Bathe: tomorrow (Shower only. No bath tub use) Weightbearing Status: Left weightbearing . Instructions / Follow-Up Instructions / Follow-Up MEDICATIONS: * Resume previous medications unless instructed otherwise by your surgeon. * Always take pain medication on a full stomach or with food to avoid upset stomach. * Do not drink alcohol or drive while taking narcotics. * Ibuprofen or Tylenol may be taken if narcotic not needed. SPECIAL CARE INSTRUCTIONS: _X_ Dressing __ Maintain until seen in office, may shower with plastic over site _X_ Remove dressings in 24-48 hours and then may shower __ Cover incisions with band-aids after showering __ Do not remove steri-strips Call physician if chills or temperature rises above 102 degrees or pain unrelieved by prescribed pain medications. Office [phone] Current Hospital Diet Patient's current hospital diet: Regular Diet Discharge Diet Recommended Diet: Regular Diet Procedures Procedures Performed: Left Hip Hematoma Incision, Drainage, and Irrigation Pending Studies Studies pending at discharge: no Work Instructions Return To Work: after follow-up Lifting Limitations: no more than 20 pounds Additional Instructions: No bending or squating or heavy lifting. Medical Emergencies . Who to Call and When: Medical Emergencies: If at any time you feel your situation is an emergency, please call 911 immediately. . Non-Emergent Contact Non-Emergency issues call your: Surgeon . "Provider Documentation" section prepared by Carlin Arellano. VTE Core Measure Inpt VTE Proph given/why not?: Mat Cleaning, SCD's
[2016-08-07] MEDS: ATORVASTATIN 10 MG TAB PO SCH (21:15)
[2016-08-07 23:26] VITALS: BP 132/84; PULSE 105; TEMP 36.6; O2SAT 96
[2016-08-08] MEDS: KETOROLAC TROMETHAMINE 30 MG/ML VIAL IV. SCH ×2 (03:30→09:15)
[2016-08-08] MEDS: CEFAZOLIN IV 2,000 MG in DEXTROSE 5% 50ML 50 ML IV SCH ×2 (05:53→13:09)
[2016-08-08] MEDS: ACETAMINOPHEN 500 MG TAB PO SCH ×2 (05:54→13:11)
[2016-08-08 07:03] VITALS: BP 156/84; PULSE 100; TEMP 36.5; O2SAT 98
[2016-08-08] MEDS ORDERED: CEPH500C PO (07:26)
--- NOTE | 2016-08-08 07:58 | PROGRESS NOTE ---
DATE: 08/08/2016 DATE: 08/08/2016. SUBJECTIVE: A 41-year-old gentleman postop day 2 from I\T\D of the left hip hematoma status post HO excision. He is doing well. Pain is controlled. Denies any chest pain or shortness of breath. Not feeling dizzy or lightheaded. OBJECTIVE: VITAL SIGNS: Temperature 36.5. Vital signs stable. PHYSICAL EXAMINATION: GENERAL: Reveals a pleasant, middle-aged male. He is lying in bed, looks pretty comfortable. LUNGS: Clear to auscultation. HEART: Regular rate and rhythm. ABDOMEN: Soft, nontender, nondistended. EXTREMITY EXAMINATION: Grossly neurovascularly intact except as follows: Examination of left hip and leg reveals the dressing to be clean, dry and intact. I did remove the dressing and there is very minimal drainage on it. His thigh is soft and supple. Some mild swelling. No active drainage. He is neurologically intact. Drain output was a total of 55 mL. CULTURE: Culture results are growing out methicillin sensitive staph. ASSESSMENT: A 41-year-old gentleman postop day 2 from I\T\D of the left hematoma which looks to has been infected. Clinically, it did not appear infected, but obviously bacteria in the wound. PLAN: I removed his drain today. I did a dressing change. We will switch him to p.o. antibiotics and I will likely discharge him today. Routine wound care. DVT prophylaxis including thigh-high TEDs, SCDs, and aspirin. Will plan on 2-4 weeks of PO antibiotics depending on response and recovery. DEWAYNE
[2016-08-08] MEDS: FERROUS GLUCONATE 324 MG TAB PO SCH ×2 (09:13→12:45)
[2016-08-08] MEDS: RANITIDINE HCL 150 MG TAB PO SCH (09:13)
[2016-08-08] MEDS: MONTELUKAST SOD 10 MG TAB PO SCH (09:13)
[2016-08-08] MEDS: DOCUSATE SODIUM 100 MG CAP PO SCH (09:13)
[2016-08-08] MEDS: ASPIRIN 325 MG ECTAB PO SCH (09:13)
[2016-08-08] MEDS: FLUTICASONE PROPIONATE NA SPR 16 GM BTL NAE SCH (09:13)
[2016-08-08] MEDS: LOSARTAN POTASSIUM 25 MG TAB PO SCH (09:14)
[2016-08-08] MEDS: PANTOprazole SOD 40 MG TAB PO SCH (09:14)
[2016-08-08] MEDS: MULTIVITAMIN TAB PO SCH (09:14)
[2016-08-08 09:41] VITALS: BP 156/84; PULSE 100; TEMP 36.5; O2SAT 98
--- NOTE | 2016-08-13 14:56 | DISCHARGE SUMMARY ---
ADMITTING PHYSICIAN AND SURGEON: Dr. Arellano. ADMITTING DIAGNOSIS: Left draining hip hematoma status post excision of large heterotopic ossification. PROCEDURE PERFORMED: Irrigation and debridement of left hip hematoma. SECONDARY DIAGNOSES: Hypertension, elevated cholesterol, asthma, obesity, low back pain, gastroesophageal reflux disease. CONSULTS: None obtained. HISTORY AND PHYSICAL EXAMINATION: Well documented in the patient's chart. HOSPITAL COURSE: The patient was admitted on 08/06/2016 and underwent I\T\D of the left hip hematoma. He tolerated the procedure well. There were no complications. He was transferred to the PACU postoperatively and later to the orthopedic floor for further care. He was given Ancef for antibiotic prophylaxis. He did have intraoperative cultures obtained which did grow out methicillin sensitive staph. He was placed on oral Keflex upon discharge. His hemoglobin, hematocrit and vital signs were monitored during his hospital stay and remained stable. He did not require any blood transfusions. There were no complications. On postoperative day 2, he was tolerating a general diet, pain was controlled with oral pain medicine. He had no signs or symptoms of deep vein thrombosis. On postop day 2, he was discharged home. He was given printed discharge instructions including new prescription for Keflex 500 mg q.i.d. for 30 days. He should continue his home medications. He was given another prescription for oxycodone for pain. Again continue weightbearing as tolerated. He should limit his lifting to 25 pounds and avoid any bending or squatting or heavy lifting. He will follow up with Dr. Arellano in 10-12 days or sooner if there are any problems or concerns.
[2016-09-05] MEDS ORDERED: INDO75CA PO (15:25)
[2016-09-10] MEDS ORDERED: OXYC-57 PO (14:47)
== END 2016-08-08 14:07 | disposition home or self-care (01) | DRG 920 ==
LOC: ENRESERVDT → ENRESERVTM → C.ACU 11:55 → C.MSN 16:38
PROVIDERS: ADMIT Orthopaedic Surgery Sports Medicine; ATTEND Orthopaedic Surgery Sports Medicine
PROC: 0J9M00Z Drainage of Left Upper Leg Subcutaneous Tissue and Fascia with Drainage Device, Open Approach (ICD-10-PCS; principal; 2016-08-06 14:30)
DX: M96.840 Postprocedural hematoma of a musculoskeletal structure following a musculoskeletal system procedure (principal); T81.4XXA Infection following a procedure, initial encounter; Y83.8 Other surgical procedures as the cause of abnormal reaction of the patient, or of later complication, without mention of misadventure at the time of the procedure; B95.61 Methicillin susceptible Staphylococcus aureus infection as the cause of diseases classified elsewhere; J45.909 Unspecified asthma, uncomplicated; I10 Essential (primary) hypertension; E78.00 Pure hypercholesterolemia, unspecified; K21.9 Gastro-esophageal reflux disease without esophagitis; E66.9 Obesity, unspecified; Z68.37 Body mass index [BMI] 37.0-37.9, adult; Z98.890 Other specified postprocedural states; Z79.51 Long term (current) use of inhaled steroids; Z79.52 Long term (current) use of systemic steroids; Z79.891 Long term (current) use of opiate analgesic; Z79.899 Other long term (current) drug therapy

== ENCOUNTER → 2016-08-21 | Outpatient (CLI) | payer OTHER ==
[~2016-08-21] MED LIST changes: -ALBU18002 INH; -ATRINSX INH; +CEPH500C PO; +OXYC-57 PO
--- NOTE | 2016-08-21 10:58 | DIAGNOSTIC IMAGING REPORT ---
LEFT LOWER EXTREMITY VENOUS DOPPLER CLINICAL HISTORY: Left leg pain and swelling. COMPARISON STUDY: Left lower extremity venous Doppler February 05, 2016. TECHNIQUE: Sonography of the deep venous system of the left lower extremity was performed. Compression and augmentation were evaluated. FINDINGS: This exam was mildly compromised by patient's inability to tolerate compression of the left thigh. The common femoral, superficial femoral and popliteal veins were compressible. Augmentation was normal. Flow was shown within the deep calf vessels. IMPRESSION: Mild compromised exam but no evidence of deep venous thrombus within the left lower extremity. Electronically signed by: Kj Ojeda M.D. 08/21/2016 10:56 AM Dictated Date/Time: 08/21/2016 10:55 AM
== END | disposition home or self-care (01) ==
LOC: C.ULTR 10:08
PROVIDERS: ATTEND Physician Assistant Medical
DX: R60.9 Edema, unspecified (principal)

== ENCOUNTER → 2016-09-04 | Outpatient (CLI) | payer OTHER ==
--- NOTE | 2016-09-04 10:57 | DIAGNOSTIC IMAGING REPORT ---
LEFT ELBOW MRI CLINICAL HISTORY: LEFT ELBOW/ TRICEP TENDON RUPTURE. Left elbow pain after fall. COMPARISON STUDY: None. TECHNIQUE: Multiplanar multisequence MRI of the left elbow was performed without the use of contrast. FINDINGS: No acute fracture or dislocation within the left elbow. Normal marrow signal intensity seen throughout the visualized osseous structures. Cartilage spaces are maintained. No significant elbow effusion. Biceps tendon appears intact. There is a near full thickness tear of the distal triceps tendon with any a few fibers remaining. No significant retraction. Extensive edema within the distal triceps muscles and surrounding the tendon. There is also extensive posterior subcutaneous edema at the elbow. Slight increased T2 signal within the ulnar nerve suggesting a mild neuropathy. IMPRESSION: 1. Near full-thickness tear of the distal triceps tendon within the a few fibers remaining. No significant retraction. 2. Extensive edema within the distal triceps muscles consistent with a muscular strain. 3. No fracture or dislocation within the left elbow. 4. Small amount of increased signal within the ulnar nerve suggesting a mild neuropathy. Electronically signed by: Riaz Nguyen M.D. 09/04/2016 10:55 AM Dictated Date/Time: 09/04/2016 10:48 AM
== END | disposition home or self-care (01) ==
LOC: C.MRIBC 09:50
PROVIDERS: ATTEND Orthopaedic Surgery Sports Medicine
DX: S46.312A Strain of muscle, fascia and tendon of triceps, left arm, initial encounter (principal); X58.XXXA Exposure to other specified factors, initial encounter; R60.0 Localized edema

== ENCOUNTER → 2016-09-08 | Outpatient (CLI) | payer OTHER ==
[2016-09-08 13:21] LABS: HEMATOCRIT 42.2 % (42-52); MEAN CELL VOLUME 84.2 fL (80-100); MEAN CORPUSCULAR HEMOGLOBIN 26.7 pg (25-34); MEAN CORPUSCULAR HGB CONC 31.8 g/dl (32-36); MEAN PLATELET VOLUME 9.5 fL (7.4-10.4); PLATELET COUNT 318 K/uL (130-400); RED BLOOD COUNT 5.01 M/uL (4.7-6.1); WHITE BLOOD COUNT 17.67 K/uL (4.8-10.8)
[2016-09-08 13:44] LABS: BLOOD UREA NITROGEN 19 mg/dl (7-18); BUN/CREATININE RATIO 19.3 (10-20); CALCIUM 9.2 mg/dl (8.5-10.1); CARBON DIOXIDE 29 mmol/L (21-32); CHLORIDE 106 mmol/L (98-107); GLUCOSE 120 mg/dl (70-99); POTASSIUM 3.9 mmol/L (3.5-5.1); SODIUM 142 mmol/L (136-145)
[2016-09-08 13:45] LABS: C-REACTIVE PROTEIN < 0.29 mg/dl (0-0.29)
[2016-09-08 13:50] LABS: BASO ABS # 0.16 K/uL (0-0.2); BASOPHIL % 0.9 % (0-2); COMPLETE YES; EOSINOPHIL % 3.5 %; LYMPHOCYTE % 11.3 %; NEUTROPHILS % 82.6 %
== END | disposition home or self-care (01) ==
LOC: C.LABBC 09:18
PROVIDERS: ATTEND Orthopaedic Surgery Sports Medicine
DX: Z01.812 Encounter for preprocedural laboratory examination (principal); S46.312A Strain of muscle, fascia and tendon of triceps, left arm, initial encounter; X58.XXXA Exposure to other specified factors, initial encounter

== ENCOUNTER → 2016-09-10 | Day surgery (SDC) | payer OTHER ==
[2016-09-05 15:26] VITALS: BMI 38.0
--- NOTE | 2016-09-09 22:24 | HISTORY & PHYSICAL EXAMINATION ---
DATE OF ADMISSION: 09/10/2016 CHIEF COMPLAINT: Left elbow injury and weakness. 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 He is not exactly sure what happened. It happened overnight and his arm kind of went into a spasm and then he hit his significant other somehow over the head area. Since then, he has had significant pain and decreased strength in his elbow. Several days later, he developed some bruising and swelling. We saw him in clinic and diagnosed with a triceps disruption. 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 No preexisting elbow pain. X-rays are normal, but MRI shows a triceps disruption. The patient now has elected to proceed with surgical treatment. PAST MEDICAL HISTORY: Past medical history of: 1. Hypertension. 2. Elevated cholesterol. 3. Asthma/COPD. 4. Obesity. 5. Low back pain. 6. Gastroesophageal reflux disease. PAST SURGICAL HISTORY: Includes: 1. Right femur fracture IM nailing. 2. Spine surgery. 3. Stomach surgery. 4. Left hip HO excision, 07/23/2016, subsequent I\T\D on 08/06/2016. Cultures were positive for methicillin sensitive staph. ALLERGIES: PENICILLIN. CURRENT MEDICINES: Include: 1. Montelukast. 2. Losartan. 3. Atrovent. 4. Omeprazole. 5. Dulera. 6. Unspecified medicine. 7. Ventolin inhaler. 8. DuoNebs. 9. Prednisone 10 mg. 10. Oxycodone p.r.n. for pain. 11. Tramadol. SOCIAL HISTORY: A 41-year-old male. 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 FAMILY HISTORY: Noncontributory. REVIEW OF SYSTEMS: Negative for diabetes, neurologic problems. He has been on chronic steroids for his asthma. Pretty significant asthma at times. Not symptomatic now. PHYSICAL EXAMINATION: GENERAL: Reveals cushingoid-appearing, middle-aged male. HEENT: Benign. NECK: Supple. No lymphadenopathy. LUNGS: Clear to auscultation. HEART: Has a regular rate and rhythm. ABDOMEN: Soft, nontender, nondistended. EXTREMITIES: Grossly neurovascularly intact except as follows: Examination of the left elbow reveals some bruising over his proximal forearm area. He has got a palpable defect in his triceps. He has extremely weak extension of his elbow. He is neurologically intact, otherwise. Examination of the hip does reveal a well-healed incision, except for one area where he has got a little bit pinpoint open area that is draining some serous fluid. X-RAYS: X-rays of the left elbow were reviewed. It shows a fairly normal-appearing elbow joint. There are no signs of fracture. No abnormal calcium deposits. MRI from the hospital was reviewed. It shows a distal triceps rupture with some slight retraction. 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 He also has a still healing wound from his heterotopic ossification of his left hip. He is on antibiotics, but his sed rate is just minimally high and his C-reactive protein is normal, suggesting no real active infection. His white count is slightly elevated, likely due to his chronic steroid use. PLAN: We talked about treatment. He would like to have his triceps repaired. I have also talked to him about taking him back and washing his hip out and place a wound VAC, but he is really hoping to avoid that. He does not feel like he can run his business by doing this. After much discussion, we are going to proceed with a triceps repair. We will continue conservative care of his hip area. The risks and benefits of triceps repair were explained to the patient, including, but not limited to, DVT, PE, , infection, neurological injury, vascular injury, failure of the repair, persistent pain, loss of elbow motion, loss of strength, etc. The patient understands and desires to proceed. Informed consent was obtained. We will plan on doing this as an outpatient. DEWAYNE
[~2016-09-10] VITALS: Ht 167.6 cm; Wt 107.3 kg
[~2016-09-10] MED LIST changes: +ATROPINE SULFATE 0.1 MG/ML 5ML SYR IV PRN; +BUPIVACAINE/EPINEPHRINE 0.25% 1:200,000 30 ML VIAL ONE; +CEFAZOLIN 1000MG/55 ML D5W 55 ML IV SCH; +CEFAZOLIN 2000 MG/60 ML D5W 60 ML IV SCH; -CEPH500C PO; +DEXAMETHASONE SOD INJ 4 MG/ML VIAL ONE; +EpHEDrine SULFATE INJ 50 MG/ML AMP IV PRN; +FENTANYL CITRATE INJ 50 MCG/1 ML 2 ML VIAL IV PRN; +FENTANYL CITRATE INJ 50 MCG/1 ML 2 ML VIAL ONE; +GLYCOPYRROLATE INJ 0.2 MG/ML VIAL ONE; +HYDROmorphone INJ 1 MG/ML SYR IV PRN; +LABETALOL HCL IV 5 MG/ML 20ML IV PRN; +LACTATED RINGER'S 1000ML 1,000 ML IV SCH; +LACTATED RINGER'S 1000ML IV SCH; +LIDOCAINE HCL 2% 2 ML VIAL (20MG/ML) ONE; +MEPERIDINE HCL 25 MG/ML CARP IV PRN; +MIDAZOLAM HCL 1 MG/ML 2ML VIAL ONE; +NEOSTIGMINE METHYLSULFATE 5 MG/5 ML SYR ONE; +ONDANSETRON INJ 2 MG/ML 2 ML VIAL IV PRN; +ONDANSETRON INJ 2 MG/ML 2 ML VIAL ONE; -OXYC1TAB3 PO; +OXYCODONE/ACETAMINOPHEN 5-325 TAB PO PRN; -PHENSYP13 PO; +PHENYLEPHRINE HCL INJ 10 MG/ML VIAL ONE; +PROPOFOL IV EMULSION 10 MG/ML 20 ML VIAL IV ONE; +ROCURONIUM BROMIDE 10 MG/ML 5 ML VIAL ONE; +ROPIVACAINE 0.5% 5 MG/ML 30 ML VIAL ONE; +SODIUM CHLORIDE 0.9% 1000ML 1,000 ML IV SCH
[2016-09-10 10:54] VITALS: BP 128/79; PULSE 82; TEMP 37; O2SAT 96; Ht 167.6 cm; Wt 107.3 kg
[2016-09-10 11:31] LABS: PROTHROMBIN TIME (PATIENT) 10.6 SECONDS (9.0-12.0)
--- NOTE | 2016-09-10 14:45 | [facility] Post Operative Brief Note ---
Immediate Operative Summary Operative Date September 10, 2016. Pre-Operative Diagnosis Left Distal triceps rupture Post-Operative Diagnosis Same as preoperative diagnosis Procedure(s) Performed Left tricep tendon rupture repair Surgeon Dr. Carlin Arellano Lactation Coordinator Surgeon(s) Greg Bell PA-C Estimated Blood Loss 20 ML Findings Triceps Rupture Fluids (cc crystalloids) 1000 cc Specimens No pathology specimens per surgeon Anesthesia General Complication(s) None Disposition Recovery Room / PACU
--- NOTE | 2016-09-10 14:49 | Discharge Instructions ---
Discharge Instructions Date of Service September 10, 2016. Admission Reason for Admission: Left Tricep Tendon Rupture Discharge Discharge Diagnosis / Problem: left tricep rupture Discharge Goals Goal(s): Improve function, Therapeutic intervention Activity Recommendations Activity Limitations: per Instructions/Follow-up section limited use of left arm Instructions / Follow-Up Instructions / Follow-Up MEDICATIONS: * Resume previous medications unless instructed otherwise by your surgeon. * Always take pain medication on a full stomach or with food to avoid upset stomach. * Do not drink alcohol or drive while taking narcotics. * Ibuprofen or Tylenol may be taken if narcotic not needed. SPECIAL CARE INSTRUCTIONS: __ None __ Keep extremity elevated and iced x 48 hours; apply ice 20-30 minutes 8-10 times/day. May remove at night. _x_ Sling __24 hrs/day __ Remove at night __ Shoulder Immobilizer __ 24 hrs/day __ Remove at night _x_ Dressing _x_ Maintain until seen in office, may shower with plastic over site __ Remove dressings in 24-48 hours and then may shower __ Cover incisions with band-aids after showering __ Do not remove steri-strips Call physician if chills or temperature rises above 102 degrees or pain unrelieved by prescribed pain medications at . follow up in 2 weeks . Current Hospital Diet Patient's current hospital diet: Discharge Diet Recommended Diet: Regular Diet Procedures Procedures Performed: Left tricep tendon rupture repair Pending Studies Studies pending at discharge: no Medical Emergencies . Who to Call and When: Medical Emergencies: If at any time you feel your situation is an emergency, please call 911 immediately. . Non-Emergent Contact Non-Emergency issues call your: Surgeon . "Provider Documentation" section prepared by Greg Bell. . VTE Core Measure Inpt VTE Proph given/why not?: Treatment not indicated
[2016-09-10] MEDS: FENTANYL CITRATE INJ 50 MCG/1 ML 2 ML VIAL ONE ×2 (15:18→15:20)
[2016-09-10 15:52] VITALS: BP 138/86; PULSE 92; TEMP 36.6; O2SAT 94
--- NOTE | 2016-09-10 15:54 | Anesthesiology Progress Note ---
Anesthesia Post Op Note Date & Time September 10, 2016 at 15:55 Vital Signs Pain Intensity: 3 Vital Signs Past 12 Hours Date Time Temp Pulse Resp B/P Pulse Ox O2 Delivery O2 Flow Rate FiO2 09/10/16 15:43 36.9 90 18 135/87 93 Room Air 09/10/16 15:42 91 15 09/10/16 15:42 93 15 91 09/10/16 15:41 135/87 09/10/16 15:37 92 17 92 09/10/16 15:37 90 17 09/10/16 15:36 141/85 09/10/16 15:32 90 20 09/10/16 15:32 87 20 92 09/10/16 15:31 141/90 09/10/16 15:27 92 13 09/10/16 15:27 90 13 92 09/10/16 15:26 143/88 09/10/16 15:22 95 18 93 09/10/16 15:22 96 18 09/10/16 15:21 132/93 09/10/16 15:17 92 18 95 09/10/16 15:17 93 18 09/10/16 15:16 136/94 09/10/16 15:12 92 16 100 09/10/16 15:12 92 16 09/10/16 15:11 135/93 09/10/16 15:07 99 21 09/10/16 15:07 98 21 100 09/10/16 15:06 161/101 09/10/16 15:02 90 14 99 09/10/16 15:02 90 14 09/10/16 15:01 154/100 09/10/16 14:57 91 15 09/10/16 14:57 90 15 100 09/10/16 14:56 161/104 09/10/16 14:54 161/105 09/10/16 14:52 94 19 09/10/16 14:52 36.6 97 16 161/104 100 Mask 10 09/10/16 14:52 92 19 168/111 99 09/10/16 10:54 37 82 18 128/79 96 Room Air Notes Mental Status: alert / awake / arousable, participated in evaluation Pt Amnestic to Procedure: Yes Nausea / Vomiting: adequately controlled Pain: adequately controlled Airway Patency, RR, SpO2: stable & adequate BP & HR: stable & adequate Hydration State: stable & adequate Anesthetic Complications: no major complications apparent
[2016-09-10 16:25] VITALS: BP 142/80; PULSE 90; O2SAT 94
[2016-09-10 16:50] VITALS: BP 120/64; PULSE 90; TEMP 37; O2SAT 95
--- NOTE | 2016-09-10 17:55 | OPERATIVE REPORT ---
DATE OF OPERATION: 09/10/2016 SURGEON: Dr. Carlin Arellano. [employer]: RUTH Godfrey PREOPERATIVE DIAGNOSIS: Left distal triceps rupture. POSTOPERATIVE DIAGNOSIS: Same. PROCEDURE PERFORMED: Left distal triceps repair. COMPLICATIONS: None. ESTIMATED BLOOD LOSS: 20 mL. FLUID REPLACEMENT: 1000 mL crystalloid fluid replacement. ANESTHESIA: General. SPECIMENS: None. 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 The exact details were a bit unclear. 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 The patient injured his elbow. He was seen in clinic and diagnosed with the distal triceps rupture. He had marked weakness. MRI confirmed this diagnosis and the patient indicated for triceps repair. DESCRIPTION OF PROCEDURE: The patient was taken to the operating room, identified and placed on the operating table in the supine position. All contact areas were appropriately padded. IV antibiotics were provided by the anesthesia team. A general anesthetic was implemented by anesthesia team. The patient was then placed in the right lateral decubitus position. He was placed on a beanbag. All contact areas were meticulously padded. The left arm was then prepped and draped in the usual sterile fashion. We did not place a tourniquet due to very short nature of his arm. A posterior approach to the elbow was then performed through a curvilinear incision, skirting around the lateral aspect of his olecranon. Sharp dissection was carried out through the subcutaneous tissues down to the extensor mechanism. Full thickness flaps were elevated. The triceps rupture was easily identified. There was still a small portion on the anterior side, which was still intact. The joint capsule was intact. This was mostly a central aspect rupture as the medial and lateral components were still intact. However, the main triceps tendon was completely avulsed. I freshened up the edge of the distal end of the tendon as it was fairly degenerative. I then rongeured the distal bone on the dorsal surface of the ulna for reattachment. I then placed a #2 FiberWire suture up and down the tendon in a Lisle fashion. I then placed 2 Synthes 2.4 SutureTak in the proximal ulna for later placement through the triceps tendon. I then passed the FiberWire sutures to the olecranon in a angy crossing pattern after creating some drill holes. I passed the sutures from the suture anchors up to the triceps tendon. I then tied down the #2 FiberWire sutures. I then tied the suture anchors. I took the free ends of the suture anchors and then drilled a hole proximal and the ulna and with the use of a SwiveLock anchor, I placed the sutures through there to recreate the triceps footprint on the posterior olecranon. This provided excellent fixation. We took the elbow through range of motion. There was no gapping up to 90 degrees. Attention was then drawn toward closing. The wound was irrigated with copious amounts of normal saline. I did inject locally with 30 mL of 0.5% Marcaine with epinephrine. The subcutaneous tissues were then closed with 2-0 Vicryl suture in a buried interrupted fashion. Skin was closed with 4-0 nylon suture in a simple fashion. The arm was then cleaned and dried and a sterile dressing of Xeroform, 4 x 4's, sterile cast padding and a posterior splint with the elbow in about 30 degrees of flexion were applied. The patient was then placed back in the supine position. He was brought out of general anesthesia and transferred to the recovery room in stable condition. The patient tolerated the procedure well with no complications. All needle and sponge counts were correct at the end of the operation. I attest to the content of the Intraoperative Record and any orders documented therein. Any exceptions are noted below. DEWAYNE
--- NOTE | 2016-09-12 11:22 | Progress Note ---
Progress Note Date of Service September 12, 2016. Progress Note Routine nursing follow up on 09/12 revealed severe post op sore throat and this was relayed to myself as anesthesiologist present for intubation. I called the patient back immediately to discuss his concerns. He states that he has had a severe sore throat since discharge and is barely able to swallow water. In addition, his girlfriend states that he has "tissue" hanging on the roof of his mouth. I did explain to patient that his intubation required a tube exchange for a ruptured cuff but no obvious injury was noted at the time. I reassured him, recommended soft diet until recovery, and pain control measures. I also spoke with Dr Rk Pimentel of ENT who agreed to see the patient the same afternoon in his office to evaluate his oropharynx. The patient was difficult to speak with, consistently interrupting, calling myself a liar, and threatening to take his case to the legal system, which I did not discourage. The patient was immediately called by Dr Pimentel's office staff who stated that he was unwilling to see another physician from [facility]. Without a further evaluation, we are unable to make further assessment or recommendations regarding this patient, but would be happy to see him if he changes his mind.
--- NOTE | 2016-09-12 17:50 | PROGRESS NOTE ---
DATE: 09/12/2016 HISTORY OF PRESENT ILLNESS: Mr. López is a 41-year-old gentleman who underwent a triceps repair on Thursday09/10/2016. I was in the operating room on Thursday and I got a message from my nurse that Mr. López was having problems. I heard from the anesthesiologist that they have talked to Mr. López and he had some lacerations in the back of his throat from the intubation. Apparently, he was quite upset and had a fairly heated discussions with the anesthesiologist regarding the implications of this and legal issues. After discussing with my nurse as well, I elected to call Mr. López. Upon calling Mr. López, he seemed completely appropriate when I talk with him. He did not seem upset or threaten any legal implications. I emphasized that in order to do this surgery we needed to have him essentially under general anesthetic as it was an upper extremity surgery and this could not be done under spinal like his lower extremity had been performed. He is a very difficult situation due to his large size and asthma and I felt that most likely was necessary for him to have a general anesthetic for this procedure, even more so intubation considering his difficult airway and his severe asthma. I emphasized the importance of the general anesthetic in the treatment by the anesthesiologist. Having said this, even a gentleman of his size and stature intubation is undoubtedly can be difficult and not too surprising that there was some degree of irritation of his oropharynx. I relayed all this information to him. I did tell him that I felt everything was done appropriately and unfortunately, he may have some irritation of his airway for a while. Dr. Serrano, the anesthesiologist, apparently had set him up to see the ENT doctor to look at this today, but the patient deferred. I did tell him that that is completely up to him. I felt most likely that this will all just clear up over time, but he certainly could seek medical care if he is so desired. I talked with him on the phone today. He was talking quite clearly and verified that he had no breathing or respiratory problems and appeared from my evaluation and listening to him that there was no impediment to his speech or breathing. In light of this, I just encouraged him to give this sometime and I think it will all improve. If he wants to seek additional medical care, he is certainly free do so. He did not seem letiginous or unhappy at in any case when I discussed this with him today and seemed to understand. Undoubtedly, he was unhappy that his throat was sore, but seemed to understand the situation. All questions were answered. DEWAYNE
== END | disposition home or self-care (01) ==
LOC: C.ACU 10:30
PROVIDERS: ATTEND Orthopaedic Surgery Sports Medicine
DX: S46.312A Strain of muscle, fascia and tendon of triceps, left arm, initial encounter (principal); X58.XXXA Exposure to other specified factors, initial encounter; I10 Essential (primary) hypertension; E66.9 Obesity, unspecified; M54.5 Low back pain; Z87.81 Personal history of (healed) traumatic fracture; Z79.2 Long term (current) use of antibiotics; Z79.52 Long term (current) use of systemic steroids; J44.9 Chronic obstructive pulmonary disease, unspecified; K21.9 Gastro-esophageal reflux disease without esophagitis; M19.90 Unspecified osteoarthritis, unspecified site

== ENCOUNTER 2016-11-05 23:15 | Emergency (ER) | payer OTHER ==
[~2016-11-05] VITALS: Ht 167.6 cm; Wt 107.7 kg
[~2016-11-05 23:15] MED LIST changes: -ATOR10TA82 PO; +ATOR10TA88 PO; -ATROPINE SULFATE 0.1 MG/ML 5ML SYR IV PRN; -BUPIVACAINE/EPINEPHRINE 0.25% 1:200,000 30 ML VIAL ONE; -CEFAZOLIN 1000MG/55 ML D5W 55 ML IV SCH; -CEFAZOLIN 2000 MG/60 ML D5W 60 ML IV SCH; -DEXAMETHASONE SOD INJ 4 MG/ML VIAL ONE; -EpHEDrine SULFATE INJ 50 MG/ML AMP IV PRN; -FENTANYL CITRATE INJ 50 MCG/1 ML 2 ML VIAL IV PRN; -FENTANYL CITRATE INJ 50 MCG/1 ML 2 ML VIAL ONE; -GLYCOPYRROLATE INJ 0.2 MG/ML VIAL ONE; -HYDROmorphone INJ 1 MG/ML SYR IV PRN; -LABETALOL HCL IV 5 MG/ML 20ML IV PRN; -LACTATED RINGER'S 1000ML 1,000 ML IV SCH; -LACTATED RINGER'S 1000ML IV SCH; -LIDOCAINE HCL 2% 2 ML VIAL (20MG/ML) ONE; -MEPERIDINE HCL 25 MG/ML CARP IV PRN; -MIDAZOLAM HCL 1 MG/ML 2ML VIAL ONE; -NEOSTIGMINE METHYLSULFATE 5 MG/5 ML SYR ONE; -ONDANSETRON INJ 2 MG/ML 2 ML VIAL IV PRN; -ONDANSETRON INJ 2 MG/ML 2 ML VIAL ONE; -OXYCODONE/ACETAMINOPHEN 5-325 TAB PO PRN; -PHENYLEPHRINE HCL INJ 10 MG/ML VIAL ONE; -PROPOFOL IV EMULSION 10 MG/ML 20 ML VIAL IV ONE; -ROCURONIUM BROMIDE 10 MG/ML 5 ML VIAL ONE; -ROPIVACAINE 0.5% 5 MG/ML 30 ML VIAL ONE; -SODIUM CHLORIDE 0.9% 1000ML 1,000 ML IV SCH
[2016-11-05 23:36] VITALS: Ht 167.6 cm; Wt 107.7 kg
[2016-11-05] MEDS ORDERED: SODIUM CHLORIDE 0.9% 1000ML 1,000 ML IV STA (23:54)
[2016-11-05] MEDS ORDERED: ONDANSETRON 8 MG/54 ML D5W IV STA (23:54)
[2016-11-06 00:04] LABS: BASO % 0.3 %; BASO ABS # 0.04 K/uL (0-0.2); COMPLETE YES; EOS % 1.3 %; HEMATOCRIT 44.3 % (42-52); IG% 1.3 %; LYMPH % 13.5 %; LYMPH ABS # 2.03 K/uL (1.2-3.4); MEAN CELL VOLUME 77.7 fL (80-100); MEAN CORPUSCULAR HEMOGLOBIN 24.4 pg (25-34); MEAN CORPUSCULAR HGB CONC 31.4 g/dl (32-36); MEAN PLATELET VOLUME 8.8 fL (7.4-10.4); MONO % 8.5 %; NEUT % 75.1 %; PLATELET COUNT 337 K/uL (130-400); WHITE BLOOD COUNT 15.01 K/uL (4.8-10.8)
[2016-11-06 00:19] LABS: PROTHROMBIN TIME (PATIENT) 10.5 SECONDS (9.0-12.0)
--- NOTE | 2016-11-06 00:22 | EMERGENCY ROOM VISIT NOTE ---
History Report prepared by Junior: Joselo Meraz Under the Supervision of: Dr. Sana Regalado D.O. First contact with patient: 23:43 Chief Complaint: ILLNESS Stated Complaint: FEVER, CHILLS, UPSET STOMACH History of Present Illness The patient is a 41 year old male who presents to the Emergency Room with complaints of constant illness beginning yesterday. The patient states that he was coming back from [place] yesterday, and he was very nauseous and thought he was going to vomit. He reports that he did not though. The patient notes that he was getting ready to go to sleep last night when he experience a headache and cramping of his legs. He states that he tried to sleep, but he could not. The patient reports that he was not able to drive to work this morning because he was too nauseous. He notes that last night for dinner he ate steak with mushrooms and onions. The patient states that his brother, who consumed the same meal, is showing similar symptoms. He denies diarrhea, vomiting, abdominal pain, dysuria, rashes, and sores. The patient reports that he has not been around anyone that is currently sick. He notes that he takes prednisone daily for his asthma, and he has had stomach problems before. The patient states that he took ibuprofen this afternoon, but it did not help. He reports that he has had multiple surgeries in the past few months, but none of them involved his stomach. The patient's mother states that the patient said he was going home, but he was already home. She reports that he had fevers, chills, and diaphoresis. Source of History: patient Onset: yesterday Position: other (global) Quality: other (illness) Timing: constant Associated Symptoms: + fevers, + chills, + headache, + diaphoresis, + nausea , No vomiting, No abdominal pain, No diarrhea, No rash Note: Associated symptoms: cramping of his legs and more frequent urination Denies dysuria and sores. Review of Systems See HPI for pertinent positives & negatives. A total of 10 systems reviewed and were otherwise negative. Past Medical & Surgical Medical Problems: (1) Asthma, Unspecified (2) Hip hematoma, left (3) Hypertension Nos (4) Left HIp Hematoma (5) Left Hip Heterotopic Ossification Family History Cancer Diabetes mellitus Gallbladder disease Heart disease Hypertension Kidney disease Kidney stones Lung disease Seizures Social History Smoking Status: Never Smoker Alcohol Use: occasionally Drug Use: none Marital Status: Housing Status: lives with family Occupation Status: unemployed Current/Historical Medications Scheduled Atorvastatin (Lipitor), 10 MG PO HS Fluticasone Propionate (Nasal) (Flonase Allergy Relief), 2 SPRAYS CAROLS QAM Indomethacin Ext Rel (Indocin Ext Rel), 75 MG PO BID Losartan Potassium (Cozaar), 25 MG PO QAM Mometasone Furoate-Formoterol (Dulera 200/5 Mcg), 2 PUFFS INH BID Montelukast Sodium (Singulair), 10 MG PO QAM Omeprazole (Prilosec), 20 MG PO QAM Prednisone (Prednisone), 1 TAB PO QAM Ranitidine Hcl (Zantac), 150 MG PO QAM Umeclidinium [place] (Incruse Ellipta), 1 PUFF INH QAM Scheduled PRN Albuterol Hfa (Ventolin Hfa), 2 PUFFS INH Q6H PRN for SOB/Wheezing Albuterol Sulf (Proventil 0.083% 2.5MG/3ML), 2.5 MG INH Q4 PRN for Shortness of Breath Cyclobenzaprine Hcl (Flexeril), 1 TAB PO HS PRN for Pain Oxycodone/Acetaminophen 5MG/325MG (Percocet 5MG/325MG), 1-2 TABLETS PO Q6 PRN for Pain Allergies Coded Allergies: Amoxicillin (Verified Allergy, Intermediate, HIVES/RASH, 09/10/16) Penicillins (Verified Allergy, Intermediate, RXN TO AMOXICILLIN (SEVERE RASH), 09/10/16) SEVERE RASH Physical Exam Vital Signs Date Time Temp Pulse Resp B/P (MAP) Pulse Ox O2 Delivery O2 Flow Rate FiO2 11/06/16 03:45 36.7 105 18 128/82 95 11/06/16 03:03 109 20 131/89 95 Room Air 11/06/16 02:22 36.9 11/06/16 02:00 120 20 122/91 94 Room Air 11/06/16 01:45 125 22 136/98 94 Room Air 11/05/16 23:49 130 11/05/16 23:36 38.0 122 20 156/94 93 Room Air Physical Exam GENERAL: alert, uncomfortable appearing, well nourished, no distress, non-toxic EYE EXAM: normal conjunctiva, PERRL and EOM's grossly intact OROPHARYNX: no exudate, no erythema, lips, buccal mucosa, and tongue normal and mucous membranes are dry. NECK: supple, no nuchal rigidity, no adenopathy, non-tender LUNGS: Clear to auscultation. Normal chest wall mechanics HEART: Fast rate but regular rhythm, no murmurs, no mumps, no gallops. ABDOMEN: abdomen soft, non-tender, normo-active bowel sounds, no masses, no rebound or guarding. Well-healed ventral scare, no hernia, no mass. BACK: Back is symmetrical on inspection and there is no deformity, no midline tenderness, no CVA tenderness. SKIN: no rashes and no bruising. No sores. Erythema notes from the head to the shoulders, patient states that it is from the sun. UPPER EXTREMITIES: upper extremities are grossly normal. LOWER EXTREMITIES: No pitting edema. NEURO EXAM: Normal sensorium, cranial nerves II-XII grossly intact, normal speech, no gross weakness of arms, no gross weakness of legs. Medical Decision & Procedures ER Provider Diagnostic Interpretation: XRAY: Chest and Abdomen: A 3 view study was reviewed, Chest: no focal infiltrate, no effusion, no wide mediastinum, no cardiomegaly was seen. Abdomen: Spinal hardware noted, no free air, no obvious SBO Laboratory Results 11/05/16 23:51 Red Blood Count 5.70, Mean Corpuscular Volume 77.7, Mean Corpuscular Hemoglobin 24.4, Mean Corpuscular Hemoglobin Concent 31.4, Mean Platelet Volume 8.8, Neutrophils (%) (Auto) 75.1, Lymphocytes (%) (Auto) 13.5, Monocytes (%) (Auto) 8.5, Eosinophils (%) (Auto) 1.3, Basophils (%) (Auto) 0.3, Neutrophils # (Auto) 11.27, Lymphocytes # (Auto) 2.03, Monocytes # (Auto) 1.28, Eosinophils # (Auto) 0.19, Basophils # (Auto) 0.04 11/05/16 23:51 Test 11/05/16 23:51 11/06/16 00:15 11/06/16 01:40 White Blood Count 15.01 K/uL (4.8-10.8) Red Blood Count 5.70 M/uL (4.7-6.1) Hemoglobin 13.9 g/dL (14.0-18.0) Hematocrit 44.3 % (42-52) Mean Corpuscular Volume 77.7 fL (80-100) Mean Corpuscular Hemoglobin 24.4 pg (25-34) Mean Corpuscular Hemoglobin Concent 31.4 g/dl (32-36) Platelet Count 337 K/uL (130-400) Mean Platelet Volume 8.8 fL (7.4-10.4) Neutrophils (%) (Auto) 75.1 % Lymphocytes (%) (Auto) 13.5 % Monocytes (%) (Auto) 8.5 % Eosinophils (%) (Auto) 1.3 % Basophils (%) (Auto) 0.3 % Neutrophils # (Auto) 11.27 K/uL (1.4-6.5) Lymphocytes # (Auto) 2.03 K/uL (1.2-3.4) Monocytes # (Auto) 1.28 K/uL (0.11-0.59) Eosinophils # (Auto) 0.19 K/uL (0-0.5) Basophils # (Auto) 0.04 K/uL (0-0.2) RDW Standard Deviation 46.4 fL (36.4-46.3) RDW Coefficient of Variation 16.4 % (11.5-14.5) Immature Granulocyte % (Auto) 1.3 % Immature Granulocyte # (Auto) 0.20 K/uL (0.00-0.02) Prothrombin Time 10.5 SECONDS (9.0-12.0) Prothromb Time International Ratio 1.0 (0.9-1.1) Anion Gap 9.0 mmol/L (3-11) Est Creatinine Clear Calc Drug Dose 99.6 ml/min Estimated GFR () 94.8 Estimated GFR (Non- 81.8 BUN/Creatinine Ratio 13.3 (10-20) Calcium Level 8.8 mg/dl (8.5-10.1) Total Bilirubin 0.5 mg/dl (0.2-1) Aspartate Amino Transf (AST/SGOT) 32 U/L (15-37) Alanine Aminotransferase (ALT/SGPT) 43 U/L (12-78) Alkaline Phosphatase 101 U/L (45-117) Troponin I < 0.015 ng/ml (0-0.045) Total Protein 6.8 gm/dl (6.4-8.2) Albumin 3.4 gm/dl (3.4-5.0) Globulin 3.4 gm/dl (2.5-4.0) Albumin/Globulin Ratio 1.0 (0.9-2) Lipase 159 U/L (73-393) Lactic Acid Level 1.3 mmol/L (0.4-2.0) Urine Color YELLOW Urine Appearance CLEAR (CLEAR) Urine pH 8.5 (4.5-7.5) Urine Specific Mack 1.014 (1.000-1.030) Urine Protein NEG (NEG) Urine Glucose (UA) NEG (NEG) Urine Ketones NEG (NEG) Urine Occult Blood NEG (NEG) Urine Nitrite NEG (NEG) Urine Bilirubin NEG (NEG) Urine Urobilinogen NEG (NEG) Urine Leukocyte Esterase NEG (NEG) Laboratory results per my review. Medications Administered Medications (Trade) Dose Ordered Sig/Norma Route Start Time Stop Time Status Last Admin Dose Admin Sodium Chloride 1,000 ml @ 999 mls/hr Q1H1M STAT IV 11/05/16 23:54 11/06/16 00:54 DC 11/06/16 00:29 999 MLS/HR Ondansetron HCl (Zofran 8mg Iv) 8 mg NOW STAT IV 11/05/16 23:54 11/05/16 23:56 DC 11/06/16 00:29 8 MG Acetaminophen (Tylenol Tab) 1,000 mg NOW STAT PO 11/06/16 00:24 11/06/16 00:26 DC 11/06/16 00:55 1,000 MG Sodium Chloride 1,000 ml @ 999 mls/hr Q1H1M STAT IV 11/06/16 00:59 11/06/16 01:59 DC 11/06/16 00:59 999 MLS/HR ECG Indication: nausea Rate (beats per minute): 121 Rhythm: sinus tachycardia Findings: no acute ischemic change, other (Normal axis and interval) ED Course 2349: The patient was evaluated in room C07. A complete history and physical exam was performed. 2354: Ordered Ondansetron HCl 8 mg IV, Sodium Chloride 1000 ml @ 999 mls/hr IV 0024: Ordered Acetaminophen 1000 mg PO 0059: Ordered Sodium Chloride 1000 ml @ 999 mls/hr IV 0130: I reevaluated the patient. He is feeling better and looks better. He is still tachycardic and fluid is going. I updated him on his exam results as of now. 0221: I reevaluated the patient and discussed his exam findings with him. He states he is feeling much better. He is completing a PO challenge now. He is asking to go home and states that his heart rate is always elevated. 0301: The patient tolerated his PO challenge. His heart rate is not 109. 0340: Upon reevaluation, the patient is feeling better. I discussed the findings and the treatment plan with the patient. He verbalizes agreement and understanding. The patient was discharged home. Medical Decision Differential diagnoses includes but is not limited to gastritis, peptic ulcer disease, GERD, gallbladder disease, pancreatitis, small bowel obstruction, acute coronary syndrome, pericarditis, ischemic bowel, irritable bowel disease, irritable bowel syndrome, appendicitis, diverticulitis, malignancy, hernia, urinary tract infection, torsion, perforation, trauma, infectious. Medication Reconciliation: I attest that I have personally reviewed the patient' s current medication list. Blood pressure screening: Patient was found to have an elevated blood pressure and was referred to their primary doctor for recheck and further treatment. Patient with most likely foodborne illness and dehydration contributing to symptoms. Patient with no overt vomiting or diarrhea and the emergency room. Leukocytosis noted discussed with patient possibly reactive versus infectious or inflammatory, versus related to his use of steroids. He states he has been told previously that his white blood cell count has been elevated. Patient's abdomen soft and nontender, no rebound guarding. Imaging reassuring. Given patient's improvement in symptoms and vital signs, patient allowed a by mouth challenge. Discussed with patient possible additional GI pathology. Doubt bacteremia/sepsis. Discussed with patient follow-up with family doctor, symptoms to watch and return for, he verbalized understanding was agreeable with plan. Impression Primary Impression: Nausea Additional Impressions: Fever Tachycardia Scribe Attestation The scribe's documentation has been prepared under my direction and personally reviewed by me in its entirety. I confirm that the note above accurately reflects all work, treatment, procedures, and medical decision making performed by me. Departure Information Dispostion Home / Self-Care Referrals No Doctor, Assigned (PCP) Patient Instructions My [facility] Additional Instructions Please drink plenty of water and clear liquids to stay well-hydrated. Please eat a bland diet as tolerated until you're feeling better. Please continue to monitor for fevers or chills, abdominal pain, recurrent nausea or vomiting, or change in your bowel movements. It is possible that he required an illness or infection secondary to bad food. If you feel worse, have worsening symptoms, new concerns, including any of the above, please return the emergency room immediately. Please otherwise call and follow up with your family doctor as a precaution. Problem Qualifiers Additional Impressions: Fever Fever type: unspecified Qualified Codes: R50.9 - Fever, unspecified
[2016-11-06] MEDS ORDERED: ACETAMINOPHEN 500 MG TAB PO STA (00:24)
[2016-11-06 00:26] LABS: ALT/SGPT 43 U/L (12-78); AST/SGOT 32 U/L (15-37); BLOOD UREA NITROGEN 15 mg/dl (7-18); BUN/CREATININE RATIO 13.3 (10-20); CALCIUM 8.8 mg/dl (8.5-10.1); CARBON DIOXIDE 28 mmol/L (21-32); CHLORIDE 97 mmol/L (98-107); GLUCOSE 87 mg/dl (70-99); SODIUM 134 mmol/L (136-145)
[2016-11-06 00:31] LABS: ALKALINE PHOSPHATASE 101 U/L (45-117)
[2016-11-06] MEDS ORDERED: SODIUM CHLORIDE 0.9% 1000ML 1,000 ML IV STA (00:59)
[2016-11-06 01:54] LABS: MANUAL MICROSCOPIC REQUIRED? NO; REVIEW REQ? NO; URINE APPEARANCE CLEAR (CLEAR); URINE BILIRUBIN NEG (NEG); URINE COLOR YELLOW; URINE NITRITE NEG (NEG); URINE PH 8.5 (4.5-7.5); URINE SPECIFIC GRAVITY 1.014 (1.000-1.030); UROBILINOGEN NEG (NEG); ZZUR CULT IF INDIC CLEAN CATCH NO
[2016-11-06 03:45] VITALS: BP 128/82; PULSE 105; TEMP 36.7; O2SAT 95
--- NOTE | 2016-11-06 06:48 | DIAGNOSTIC IMAGING REPORT ---
ABDOMEN 2VIEW W/PA CHEST RTN CLINICAL HISTORY: fever, nausea pain. Nausea. COMPARISON STUDY: 07/09/2016 FINDINGS: The soft tissues, psoas shadows, renal outlines and intestinal gas pattern appear normal. There is no evidence for bowel obstruction. There is no evidence for free intraperitoneal air. No abnormal abdominal calcifications are seen. A frontal view of the chest was performed and is unremarkable. Nonobstructive bowel pattern. Degenerative and postoperative changes of the osseous structures. IMPRESSION: No acute process. Electronically signed by: Anton Andres M.D. 11/06/2016 6:47 AM Dictated Date/Time: 11/06/2016 6:46 AM
== END 2016-11-06 03:45 | disposition home or self-care (01) ==
LOC: C.EDB 23:16
DX: R11.0 Nausea (principal); R50.9 Fever, unspecified; R00.0 Tachycardia, unspecified; R51 Headache; J45.909 Unspecified asthma, uncomplicated; I10 Essential (primary) hypertension; Z83.3 Family history of diabetes mellitus; Z82.49 Family history of ischemic heart disease and other diseases of the circulatory system; Z84.1 Family history of disorders of kidney and ureter; Z82.0 Family history of epilepsy and other diseases of the nervous system

== ENCOUNTER → 2017-01-20 | Outpatient (CLI) | payer OTHER ==
[2017-01-20 12:19] LABS: BASO % 0.3 %; BASO ABS # 0.04 K/uL (0-0.2); COMPLETE YES; EOS % 3.7 %; HEMATOCRIT 44.8 % (42-52); IG% 0.8 %; LYMPH % 13.6 %; LYMPH ABS # 1.56 K/uL (1.2-3.4); MEAN CORPUSCULAR HGB CONC 32.6 g/dl (32-36); MEAN PLATELET VOLUME 9.6 fL (7.4-10.4); MONO % 5.9 %; NEUT % 75.7 %; PLATELET COUNT 387 K/uL (130-400)
[2017-01-20 12:37] LABS: ALT/SGPT 36 U/L (12-78); AST/SGOT 24 U/L (15-37); BLOOD UREA NITROGEN 22 mg/dl (7-18); BUN/CREATININE RATIO 24.3 (10-20); CALCIUM 9.3 mg/dl (8.5-10.1); CARBON DIOXIDE 26 mmol/L (21-32); CHLORIDE 108 mmol/L (98-107); CREATININE 0.91 mg/dl (0.60-1.40); GLUCOSE 90 mg/dl (70-99); POTASSIUM 3.7 mmol/L (3.5-5.1); SODIUM 141 mmol/L (136-145)
[2017-01-20 12:39] LABS: ALB/GLOB RATIO 1.1 (0.9-2); ALKALINE PHOSPHATASE 97 U/L (45-117)
== END | disposition home or self-care (01) ==
LOC: C.LAB1850 10:54
PROVIDERS: ATTEND Internal Medicine Pulmonary Disease
DX: L70.9 Acne, unspecified (principal)

== ENCOUNTER → 2017-02-23 | Outpatient (CLI) | payer OTHER ==
[~2017-02-23] MED LIST changes: +ATOR10TA82 PO; -ATOR10TA88 PO
[2017-02-24 14:58] VITALS: PULSE 74; O2SAT 93
== END | disposition home or self-care (01) ==
LOC: C.RC 16:47
PROVIDERS: ATTEND Internal Medicine Pulmonary Disease
DX: L70.9 Acne, unspecified (principal)

== ENCOUNTER 2017-05-17 14:22 | Emergency (ER) | payer OTHER ==
[~2017-05-17] VITALS: Ht 167.6 cm; Wt 103.9 kg
[~2017-05-17 14:22] MED LIST changes: -OXYC-57 PO
[2017-05-17 14:24] VITALS: TEMP 36.3; Ht 167.6 cm; Wt 103.9 kg
[2017-05-17] MEDS ORDERED: OXYCODONE/ACETAMINOPHEN 5-325 TAB PO STA (15:14)
[2017-05-17] MEDS ORDERED: METHYLPREDNISOLONE 125 MG VIAL IV STA (15:14)
[2017-05-17] MEDS ORDERED: MAGNESIUM SULFATE 1GM / D5W 1 GM BAG IV STA (15:14)
[2017-05-17] MEDS ORDERED: IBUPROFEN 600 MG TAB PO STA (15:14)
[2017-05-17] MEDS ORDERED: ALBUT/IPRATROP 3MG/0.5MG NEB 3 ML VIAL INH ONE (15:15)
[2017-05-17 15:30] VITALS: PULSE 101; O2SAT 96
[2017-05-17 15:30] LABS: BASO % 0.3 %; BASO ABS # 0.05 K/uL (0-0.2); EOS % 0.6 %; EOS ABS # 0.09 K/uL (0-0.5); HEMATOCRIT 47.6 % (42-52); HEMOGLOBIN 16.6 g/dL (14.0-18.0); IG# 0.22 K/uL (0.00-0.02); LYMPH % 6.6 %; LYMPH ABS # 1.03 K/uL (1.2-3.4); MEAN CELL VOLUME 87.8 fL (80-100); MEAN CORPUSCULAR HEMOGLOBIN 30.6 pg (25-34); MEAN CORPUSCULAR HGB CONC 34.9 g/dl (32-36); MEAN PLATELET VOLUME 8.9 fL (7.4-10.4); MONO % 3.8 %; MONO ABS # 0.59 K/uL (0.11-0.59); NEUT % 87.3 %; NEUT ABS # 13.59 K/uL (1.4-6.5); PLATELET COUNT 299 K/uL (130-400); RED CELL DISTRIBUTION WIDTH CV 13.4 % (11.5-14.5); WHITE BLOOD COUNT 15.57 K/uL (4.8-10.8)
--- NOTE | 2017-05-17 15:32 | DIAGNOSTIC IMAGING REPORT ---
CHEST ONE VIEW PORTABLE HISTORY: 42 years-old Male cough wheeze acute cough and wheezing COMPARISON: Acute abdominal series radiographs 11/06/2016 TECHNIQUE: Portable AP view of the chest FINDINGS: Cardiac silhouette is mildly enlarged, unchanged. No pneumothorax, pleural effusion, focal airspace consolidation or overt pulmonary edema. Bones of the chest appear grossly intact. There are degenerative changes of the shoulders. Fusion hardware of the upper lumbar spine. IMPRESSION: Cardiomegaly without acute process. The above report was generated using voice recognition software. It may contain grammatical, syntax or spelling errors. Electronically signed by: Spencer Bernard M.D. 05/17/2017 3:30 PM Dictated Date/Time: 05/17/2017 3:30 PM
--- NOTE | 2017-05-17 15:35 | EMERGENCY ROOM VISIT NOTE ---
History First contact with patient: 15:04 Chief Complaint: SHORTNESS OF BREATH Stated Complaint: ASTHMA/BREATHING Nursing Triage Summary: Shortness of breath for a few days. Hx COPD. Productive yellow sputum cough as well. Been using nebulizers at home without relief. History of Present Illness The patient is a 42 year old male who presents to the Emergency Room with complaints of shortness of breath, mild productive cough and wheezing for the last 4 days. Patient denies any fever symptoms. He has a history of COPD. He tried his nebulizer at home with no relief. He did not get a flu shot this year. He does not smoke. The patient is on prednisone 20 mg daily for COPD. He follows with Dr. Zavala from pulmonology Of note, the patient also notes a fall from a chair landing on his buttocks last week. He has a history of chronic back pain. This exacerbated the pain. He denies any numbness, tingling or weakness in the legs. He has tried ibuprofen with minimal relief. Review of Systems 10 system review performed and negative unless noted in HPI or below Past Medical/Surgical History Medical Problems: (1) Asthma, Unspecified (2) Hip hematoma, left (3) Hypertension Nos (4) Left HIp Hematoma (5) Left Hip Heterotopic Ossification Family History Cancer Diabetes mellitus Gallbladder disease Heart disease Hypertension Kidney disease Kidney stones Lung disease Seizures Social History Smoking Status: Never Smoker Alcohol Use: occasionally Drug Use: none Marital Status: Housing Status: lives with family Occupation Status: unemployed Current/Historical Medications Scheduled Atorvastatin (Lipitor), 10 MG PO HS Doxycycline Hyclate (Vibramycin), 100 MG PO BID Fluticasone Propionate (Nasal) (Flonase Allergy Relief), 2 SPRAYS CARLOS QAM Losartan Potassium (Cozaar), 25 MG PO QAM Mometasone Furoate-Formoterol (Dulera 200/5 Mcg), 2 PUFFS INH BID Montelukast Sodium (Singulair), 10 MG PO HS Omeprazole (Prilosec), 20 MG PO QAM Prednisone (Prednisone), 20 MG PO QAM Prednisone (Prednisone Tab), 3 TAB PO DAILY Ranitidine Hcl (Zantac), 150 MG PO HS Scheduled PRN Albuterol Hfa (Ventolin Hfa), 2 PUFFS INH Q6H PRN for SOB/Wheezing Albuterol Sulf (Proventil 0.083% 2.5MG/3ML), 2.5 MG INH Q4 PRN for Shortness of Breath Ipratropium [place] (Atrovent 0.02% Soln), 1 DOSE NEB QID PRN for SOB/Wheezing Oxycodone Ir (Roxicodone Ir), 1-2 TAB PO Q4H PRN for Pain Physical Exam Vital Signs Date Time Temp Pulse Resp B/P (MAP) Pulse Ox O2 Delivery O2 Flow Rate FiO2 05/17/17 18:06 102 18 126/100 94 05/17/17 17:45 102 18 126/100 94 Room Air 05/17/17 16:01 155/87 05/17/17 16:01 155/87 05/17/17 15:52 97 9 99 05/17/17 15:52 97 9 99 05/17/17 15:31 144/96 05/17/17 15:31 144/96 05/17/17 15:30 101 18 96 Room Air 05/17/17 15:26 99 05/17/17 15:23 156/105 05/17/17 15:23 156/105 05/17/17 14:24 99 Room Air 05/17/17 14:24 36.3 109 24 143/81 95 Room Air Physical Exam VITALS: Vitals are noted on the nurse's note and reviewed by myself. Vital signs stable. GENERAL: 42-year-old male, in mild respiratory distress,, SKIN: The skin was without rashes, erythema, edema, or bruising. HEAD: Normocephalic atraumatic. MOUTH: Mucous membranes moist. Tonsils are not enlarged. Pharynx without erythema or exudate. Uvula midline. Airway patent. Tongue does not deviate. NECK: Supple without nuchal rigidity. No lymphadenopathy. Cervical spine is nontender. No JVD. HEART: Tachycardic, regular rhythm without murmurs gallops or rubs. LUNGS: Diminished breath sounds at the bases. Diffuse wheeze noted. ABDOMEN: Positive bowel sounds x 4.Soft, nontender, without organomegaly. No guarding or rebound tenderness. MUSCULOSKELETAL: No muscle atrophy, erythema, or edema noted. Strength 5/5 throughout. No tenderness over the spinous processes. Mild tenderness over the right SI joint. NEURO: Patient was alert and oriented to person place and time. Normal sensation to touch. No focal neurological deficits. Medical Decision & Procedures ER Provider Diagnostic Interpretation: Chest x-ray Patient Name: EJFFREY GENTILE Unit Number: [id number] Dictated: 05/17/171529 Transcribed: 05/17/171529 JRB Printed Date/Time: [~ rep prt dt]/[~ rep prt tm] [~ rep ct labl] - [~ rep ct ivnm] [facility] Radiology Department [place] [id number] Dictated: 05/17/171529 Transcribed: 05/17/171529 JRB Printed Date/Time: [~ rep prt dt]/[~ rep prt tm] [~ rep ct labl] - [~ rep ct ivnm] IMPRESSION: Cardiomegaly without acute process. The above report was generated using voice recognition software. It may contain grammatical, syntax or spelling errors. Electronically signed by: Spencer Bernard M.D. 05/17/2017 3:30 PM Dictated Date/Time: 05/17/2017 3:30 PM The status of this report is Signed. Draft = Not yet reviewed or approved by Radiologist. Signed = Reviewed and approved by Radiologist. <AttendingPhy></AttendingPhy> <FamilyPhy>Jason Zavala DO</FamilyPhy> < PrimaryPhy>Jason Zavala DO</PrimaryPhy> <UnitNumber>[id number]</UnitNumber > <VisitNumber>[id number]</VisitNumber> <PatientName>SEFERINOJEFFREY </ PatientName> <DateOfBirth>1975</DateOfBirth> <Location>[facility]</Location> < ServiceDate>05/17/17</ServiceDate> <MNE>ESINDI</MNE> <OrderingPhy>Vickie Goddard PA-C</OrderingPhy> <OrderingPhyMNE>f rep ord dr mast</OrderingPhyMNE> < DictatingPhyMNE>f rep dict dr mast</DictatingPhyMNE> <CCListMNE>f rep ct mne</ CCListMNE> <AdmittingPhyMNE>f pt admit dr mast</AdmittingPhyMNE> <AttendingPhyMNE >f pt attend dr mast</AttendingPhyMNE> <ConsultingPhyMNE>f pt consult dr mast</ConsultingPhyMNE> <FamilyPhyMNE>f pt fam dr mast</FamilyPhyMNE> <OtherPhyMNE>f pt other dr mast</OtherPhyMNE> < PrimaryPhyMNE>f pt prim care dr mast</PrimaryPhyMNE> <ReferringPhyMNE>f pt referring dr mast</ReferringPhyMNE> Laboratory Results 05/17/17 15:15 Red Blood Count 5.42, Mean Corpuscular Volume 87.8, Mean Corpuscular Hemoglobin 30.6, Mean Corpuscular Hemoglobin Concent 34.9, Mean Platelet Volume 8.9, Neutrophils (%) (Auto) 87.3, Lymphocytes (%) (Auto) 6.6, Monocytes (%) (Auto) 3.8, Eosinophils (%) (Auto) 0.6, Basophils (%) (Auto) 0.3, Neutrophils # (Auto) 13.59, Lymphocytes # (Auto) 1.03, Monocytes # (Auto) 0.59, Eosinophils # (Auto) 0.09, Basophils # (Auto) 0.05 05/17/17 15:15 Test 05/17/17 15:15 05/17/17 15:24 White Blood Count 15.57 K/uL (4.8-10.8) Red Blood Count 5.42 M/uL (4.7-6.1) Hemoglobin 16.6 g/dL (14.0-18.0) Hematocrit 47.6 % (42-52) Mean Corpuscular Volume 87.8 fL (80-100) Mean Corpuscular Hemoglobin 30.6 pg (25-34) Mean Corpuscular Hemoglobin Concent 34.9 g/dl (32-36) Platelet Count 299 K/uL (130-400) Mean Platelet Volume 8.9 fL (7.4-10.4) Neutrophils (%) (Auto) 87.3 % Lymphocytes (%) (Auto) 6.6 % Monocytes (%) (Auto) 3.8 % Eosinophils (%) (Auto) 0.6 % Basophils (%) (Auto) 0.3 % Neutrophils # (Auto) 13.59 K/uL (1.4-6.5) Lymphocytes # (Auto) 1.03 K/uL (1.2-3.4) Monocytes # (Auto) 0.59 K/uL (0.11-0.59) Eosinophils # (Auto) 0.09 K/uL (0-0.5) Basophils # (Auto) 0.05 K/uL (0-0.2) RDW Standard Deviation 43.0 fL (36.4-46.3) RDW Coefficient of Variation 13.4 % (11.5-14.5) Immature Granulocyte % (Auto) 1.4 % Immature Granulocyte # (Auto) 0.22 K/uL (0.00-0.02) Anion Gap 6.0 mmol/L (3-11) Est Creatinine Clear Calc Drug Dose 122.3 ml/min Estimated GFR () 121.7 Estimated GFR (Non- 105.0 BUN/Creatinine Ratio 18.2 (10-20) Calcium Level 9.6 mg/dl (8.5-10.1) Influenza Type A Antigen Neg for Influ A (NEG) Influenza Type B Antigen Neg for Influ B (NEG) Medications Administered Medications (Trade) Dose Ordered Sig/Norma Route Start Time Stop Time Status Last Admin Dose Admin Magnesium Sulfate (Magnesium Sulfate) 1 gm NOW STAT IV 05/17/17 15:14 05/17/17 15:18 DC 05/17/17 15:29 1 GM Albuterol/ Ipratropium (Duoneb) 12 ml ONE ONCE INH 05/17/17 15:15 05/17/17 15:18 DC 05/17/17 15:29 12 ML Methylprednisolone Sodium Succinate (Solu-Medrol IV) 125 mg NOW STAT IV 05/17/17 15:14 05/17/17 15:18 DC 05/17/17 15:29 125 MG Oxycodone/ Acetaminophen (Percocet 5-325mg Tab) 1 tab NOW STAT PO 05/17/17 15:14 05/17/17 15:18 DC 05/17/17 15:28 1 TAB Ibuprofen (Motrin Tab) 600 mg ONE STAT PO 05/17/17 15:14 05/17/17 15:18 DC 05/17/17 15:29 600 MG Oxycodone HCl (Roxicodone Immediate Rel 5MG Home Pack) 1 homepack UD ONCE PO 05/17/17 18:00 05/17/17 18:01 DC 05/17/17 18:06 1 HOMEPACK ED Course Patient was seen and examined Vital signs including blood pressure were reviewed medications list was verified with patient Labs were obtained, and a saline lock was established Imaging was performed and the patient was put on a monitor. He was given an hour-long DuoNeb treatment. He was medicated with Solu-Medrol 125 mg IV. He was also given mag sulfate 1 g IV I reviewed the patient's workup. The patient was reassessed. He was feeling much better. We discussed his results. He voiced understanding. He was comfortable being discharged home. I reviewed discharge instructions the patient. They voiced understanding and had no further questions. Medical Decision Differential diagnosis: Bronchitis, pneumonia, COPD exacerbation, influenza This patient is a 42-year-old male with a history of COPD presents emergency department with cough and shortness of breath. On exam, he was tachypneic. He was also wheezing with diminished breath sounds. Oxygen was stable on room air. The patient was treated with DuoNeb, magnesium and steroids in the emergency department with excellent symptomatic relief. He is negative for the flu. His chest x-ray is clear. 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 He is comfortable with this plan. I will increase his prednisone to 60 mg daily. He will also be given an antibiotic with his history of lung disease. The patient was also given a short course of narcotics for his acute on chronic back pain. He had a minor injury. Based on his injury and exam, I did not find imaging necessary. He was also informed that further narcotics would not be provided in the emergency department. He voiced understanding, and was discharged in good condition This chart was completed in part utilizing [employer] Speech Voice Recognition software. Attempts were made to minimize the grammatical errors, random word insertions, pronoun errors and incomplete sentences. Any formal questions or concerns about the content, text or information contained within the body of this dictation should be directly addressed to the provider for clarification. [place] Drug Monitoring Program Search Results: patient reviewed within database Medication Reconcilliation Current Medication List: was personally reviewed by me Blood Pressure Screening Patient's blood pressure: Elevated blood pressure Blood pressure disposition: Elevated BP felt to be situational Impression Primary Impression: COPD exacerbation Departure Information Dispostion Home / Self-Care Condition GOOD Prescriptions Doxycycline Hyclate (VIBRAMYCIN) 100 Mg Cap 100 MG PO BID for 7 Days, #14 CAP Prov: Vickie Goddard PA-C 05/17/17 Oxycodone Ir (Roxicodone Ir) 5 Mg Tab 1-2 TAB PO Q4H Y for Pain, #10 TAB For Initial Treatment Prov: Vickie Goddard PA-C 05/17/17 Prednisone (Prednisone Tab) 20 Mg Tab 3 TAB PO DAILY for 5 Days, #15 TAB FOR 4 DAYS Prov: Vickie Goddard PA-C 05/17/17 Referrals Jason Zavala DO (PCP) Catrachito Willis M.D. Patient Instructions My [facility] Additional Instructions You were evaluated in the emergency department for cough and difficulty breathing. This is likely an exacerbation of your lung condition. Please continue your nebulizer treatments every 4 hours as needed for difficulty breathing or wheezing Increase your prednisone to 60 mg daily for 5 days Doxycycline 1 tab twice daily for 7 days Please follow-up with your press operator helper and your primary care physician as soon as possible. Call tomorrow morning for a follow-up appointment. You have been prescribed oxycodone for your exacerbation of chronic back pain. Emergency department will not provide refills for this. This must come from your primary care physician or orthopedic doctor. Oxycodone Immediate Release (OxyIR) 5mg: Take 1-2 pills every four hours for pain. Avoid alcohol, operating machinery or dangerous equipment, working on ladders or roofs, DRIVING, or situations where being under the influence may be dangerous. It is recommended to use an [id number] stool softener such as Colace, 100mg twice daily while taking this medication to avoid constipation. Please not hesitate to return to the emergency department with any new, worsening or concerning symptoms; especially, worsening breathing, chest pain or fever. School Instructions Return To School: 2 days
[2017-05-17] MEDS ORDERED: ATRINSX NEB (15:44)
[2017-05-17 15:46] LABS: CALCIUM 9.6 mg/dl (8.5-10.1); CREATININE 0.87 mg/dl (0.60-1.40); POTASSIUM 4.3 mmol/L (3.5-5.1)
[2017-05-17 16:02] LABS: INFLUENZA B ANTIGEN Neg for Influ B (NEG)
[2017-05-17] MEDS ORDERED: PRED20TA2 PO (17:51)
[2017-05-17] MEDS ORDERED: DOXY100C PO (17:51)
[2017-05-17] MEDS ORDERED: OXYC1TAB3 PO (17:51)
[2017-05-17] MEDS ORDERED: OXYCODONE IR HOME PACK PO ONE (18:00)
[2017-05-17 18:06] VITALS: BP 126/100; PULSE 102; O2SAT 94
== END 2017-05-17 18:07 | disposition home or self-care (01) ==
LOC: C.EDB 14:24 → C.EDA 18:07
DX: J44.1 Chronic obstructive pulmonary disease with (acute) exacerbation (principal); I10 Essential (primary) hypertension; Z80.9 Family history of malignant neoplasm, unspecified; Z83.3 Family history of diabetes mellitus; Z83.79 Family history of other diseases of the digestive system; Z82.49 Family history of ischemic heart disease and other diseases of the circulatory system; Z84.1 Family history of disorders of kidney and ureter; Z83.6 Family history of other diseases of the respiratory system; Z79.899 Other long term (current) drug therapy

== ENCOUNTER 2017-07-07 14:22 | Emergency (ER) | payer OTHER ==
[~2017-07-07] VITALS: Ht 167.6 cm; Wt 106.9 kg
[~2017-07-07 14:22] MED LIST changes: -ALBINS/ INH; -ATOR10TA82 PO; -CYCL5TAB PO; -FLUT0.15 NAE; -INDO75CA PO; -LOSA1TAB PO; -MOME200A INH; -MONT1TAB3 PO; +OXYC1TAB3 PO; -PRED20TA PO; -PRLSR20 PO; -RANI150T3 PO; -UMEC1INH INH; -VNTHFA/IN INH
[2017-07-07 14:25] VITALS: TEMP 36.7
[2017-07-07] MEDS ORDERED: ALBUT/IPRATROP 3MG/0.5MG NEB 3 ML VIAL INH STA (16:49)
[2017-07-07] MEDS ORDERED: METHYLPREDNISOLONE 125 MG VIAL IV STA (16:49)
[2017-07-07] MEDS ORDERED: AZITHROMYCIN 250 MG TAB PO STA (16:49)
[2017-07-07] MEDS ORDERED: MAGNESIUM SULFATE 1GM / D5W 1 GM BAG IV STA (16:49)
[2017-07-07] MEDS ORDERED: KETOROLAC TROMETHAMINE 30 MG/ML VIAL IV STA (16:53)
--- NOTE | 2017-07-07 16:53 | EMERGENCY ROOM VISIT NOTE ---
History Report prepared by Junior: Gume Frederick Under the Supervision of: Dr. Alexander Rodrigez M.D. First contact with patient: 16:34 Chief Complaint: RESPIRATORY PROBLEMS Stated Complaint: ASTHMA-LEFT UPPER LEG HAS ALOT OF PAIN Nursing Triage Summary: asthma exac for 2 days nasal congestion sore throat also injured left thigh yesterday cough with dark sputum History of Present Illness The patient is a 42 year old white male with a past history of asthma and hypertension, who presents to the Emergency Room with complaints of worsening difficulty breathing that the has been experiencing for the past two days. Nothing seems to make the difficulty better or worse. He has a history of asthma and has been using his inhalers every two hours. He takes Prednisone daily. He has never been intubated secondary to his asthma. The patient does use breathing treatments as well. He has had a sore throat and productive cough secondary to the shortness of breath. The patient also complains of pain in the left hip that he has been experiencing for quite sometime. He adds that he has had a calcium deposit removed from that hip in the past. Source of History: patient Onset: 2 days Quality: other (Dyspnea) Timing: worsening Modifying Factors (Worsening): other (N/A) Modifying Factors (Relieving): other (N/A) Associated Symptoms: + sorethroat, + cough Note: Left hip pain/swelling Review of Systems See HPI for pertinent positives and negatives. A total of ten systems were reviewed and were otherwise negative. Past Medical & Surgical Medical Problems: (1) Asthma, Unspecified (2) Hip hematoma, left (3) Hypertension Nos (4) Left HIp Hematoma (5) Left Hip Heterotopic Ossification Family History Cancer Diabetes mellitus Gallbladder disease Heart disease Hypertension Kidney disease Kidney stones Lung disease Seizures Social History Smoking Status: Never Smoker Alcohol Use: occasionally Drug Use: none Marital Status: Housing Status: lives with family Occupation Status: unemployed Current/Historical Medications Scheduled Atorvastatin (Lipitor), 10 MG PO HS Azithromycin (Zithromax), 250 MG PO DAILY Fluticasone Propionate (Nasal) (Flonase Allergy Relief), 2 SPRAYS CARLOS QAM Losartan Potassium (Cozaar), 25 MG PO QAM Mometasone Furoate-Formoterol (Dulera 200/5 Mcg), 2 PUFFS INH BID Montelukast Sodium (Singulair), 10 MG PO HS Omeprazole (Prilosec), 20 MG PO QAM Prednisone (Prednisone), 20 MG PO QAM Prednisone (Prednisone), 50 MG PO DAILY Ranitidine Hcl (Zantac), 150 MG PO HS Scheduled PRN Albuterol Hfa (Ventolin Hfa), 2 PUFFS INH Q6H PRN for SOB/Wheezing Albuterol Sulf (Proventil 0.083% 2.5MG/3ML), 2.5 MG INH Q4 PRN for Shortness of Breath Ipratropium [place] (Atrovent 0.02% Soln), 1 DOSE NEB QID PRN for SOB/Wheezing Oxycodone Immediate Rel Tab (Roxicodone Ir), 5 MG PO Q6H PRN for Pain Oxycodone Ir (Roxicodone Ir), 1-2 TAB PO Q4H PRN for Pain Allergies Coded Allergies: Amoxicillin (Verified Allergy, Intermediate, HIVES/RASH, 07/07/17) Penicillins (Verified Allergy, Intermediate, RXN TO AMOXICILLIN (SEVERE RASH), 09/10/16) SEVERE RASH Physical Exam Vital Signs Date Time Temp Pulse Resp B/P (MAP) Pulse Ox O2 Delivery O2 Flow Rate FiO2 07/07/17 18:30 104 16 139/95 94 Room Air 07/07/17 17:14 89 16 140/94 95 Room Air 07/07/17 17:13 94 Room Air 07/07/17 14:28 94 Room Air 07/07/17 14:25 36.7 106 20 163/92 94 Room Air Physical Exam GENERAL: Awake, alert, well-appearing, NAD HENT: Normocephalic, atraumatic. EYES: Normal conjunctiva. Sclera non-icteric. NECK: Short neck. Supple. No nuchal rigidity. FROM. RESPIRATORY: There is inspiratory and expiratory wheezing, no rhonchi/crackles CARDIAC: RRR, no MRG ABDOMEN: Soft, NTND, BS+ MSK: No chest wall TTP, no LE edema NEURO: GCS 15, CN 2-12 intact, moves all 4s on command SKIN: There is acne diffusely across the back. No rash or jaundice noted. There is swelling over the left hip area. Mild TTP. No calor. Medical Decision & Procedures ER Provider Diagnostic Interpretation: Radiology results as stated below per my review and radiologist interpretation: PE[facility] CT CT DOSE: 559.07 mGy.cm HISTORY: h/o l hip ossification s/p removal and hematoma, swelling L hip TECHNIQUE: Multiaxial CT images of the pelvis were performed and reformatted in the sagittal and coronal plane without the use of contrast. A dose lowering technique was utilized adhering to the principles of ALARA. COMPARISON: Left hip 07/07/2016. FINDINGS: Status near-complete resection of the large area of ossification adjacent to the anterior aspect of the left iliac bone and extending into the anterior thigh musculature. There are few small foci of ossification remaining at this location. Focal soft tissue thickening and a and elongated fluid collection anterior to the left iliac bone at the resection bed. This fluid collection measures 7.7 cm in length and up to 2.7 x 2.5 cm in axial dimension. This is suboptimally evaluated on this noncontrast study. This is entirely nonspecific but could be related to residual postoperative change. There is no gas within the fluid collection at this time. No significant hip effusion. No retroperitoneal fluid or hemorrhage identified. Old post traumatic changes seen within the right femur with an intramedullary eran. The visualized loops of bowel show no wall thickening or obstruction. Normal appendix. The bladder is unremarkable. No pelvic or inguinal lymphadenopathy. IMPRESSION: Status post near complete resection of the large area of ossification adjacent to the anterior left iliac bone and extending into the anterior left thigh musculature. Only a few small foci of ossification remain at this location. There is soft tissue thickening and an elongated fluid collection at the resection site which measures 7.7 x 2.7 x 2.5 cm. This is nonspecific but may represent postoperative seroma/hematoma. An abscess could also be a similar appearance. However, there is no gas identified in the fluid collection at this time. Electronically signed by: Riaz Nguyen M.D. 07/07/2017 5:54 PM Dictated Date/Time: 07/07/2017 5:45 PM CHEST ONE VIEW PORTABLE CLINICAL HISTORY: EVALUATE RESPIRATORY DISTRESS.DYSPNEA COMPARISON STUDY: Chest radiograph May 17, 2017. FINDINGS: Spine fusion hardware is partially imaged. Lung volumes are normal. There is no pneumothorax or pleural effusion. There is no evidence for pulmonary edema. Mild cardiomegaly is unchanged. Mediastinal contours are stable. IMPRESSION: No acute cardiopulmonary findings. Electronically signed by: Kj Ojeda M.D. 07/07/2017 5:37 PM Dictated Date/Time: 07/07/2017 5:36 PM Laboratory Results 07/07/17 17:03 Red Blood Count 5.63, Mean Corpuscular Volume 88.6, Mean Corpuscular Hemoglobin 30.0, Mean Corpuscular Hemoglobin Concent 33.9, Mean Platelet Volume 9.5, Neutrophils (%) (Auto) 90.7, Lymphocytes (%) (Auto) 3.2, Monocytes (%) (Auto) 3.2, Eosinophils (%) (Auto) 0.3, Basophils (%) (Auto) 0.2, Neutrophils # (Auto) 21.83, Lymphocytes # (Auto) 0.76, Monocytes # (Auto) 0.76, Eosinophils # (Auto) 0.07, Basophils # (Auto) 0.05 07/07/17 17:03 Test 07/07/17 17:03 07/07/17 18:53 White Blood Count 24.05 K/uL (4.8-10.8) Red Blood Count 5.63 M/uL (4.7-6.1) Hemoglobin 16.9 g/dL (14.0-18.0) Hematocrit 49.9 % (42-52) Mean Corpuscular Volume 88.6 fL (80-100) Mean Corpuscular Hemoglobin 30.0 pg (25-34) Mean Corpuscular Hemoglobin Concent 33.9 g/dl (32-36) Platelet Count 311 K/uL (130-400) Mean Platelet Volume 9.5 fL (7.4-10.4) Neutrophils (%) (Auto) 90.7 % Lymphocytes (%) (Auto) 3.2 % Monocytes (%) (Auto) 3.2 % Eosinophils (%) (Auto) 0.3 % Basophils (%) (Auto) 0.2 % Neutrophils # (Auto) 21.83 K/uL (1.4-6.5) Lymphocytes # (Auto) 0.76 K/uL (1.2-3.4) Monocytes # (Auto) 0.76 K/uL (0.11-0.59) Eosinophils # (Auto) 0.07 K/uL (0-0.5) Basophils # (Auto) 0.05 K/uL (0-0.2) RDW Standard Deviation 43.8 fL (36.4-46.3) RDW Coefficient of Variation 13.3 % (11.5-14.5) Immature Granulocyte % (Auto) 2.4 % Immature Granulocyte # (Auto) 0.58 K/uL (0.00-0.02) Erythrocyte Sedimentation Rate 20 mm/hr (0-14) Anion Gap 8.0 mmol/L (3-11) Est Creatinine Clear Calc Drug Dose 100.0 ml/min Estimated GFR () 96.2 Estimated GFR (Non- 83.0 BUN/Creatinine Ratio 20.1 (10-20) Calcium Level 8.8 mg/dl (8.5-10.1) Laboratory results reviewed by me Medications Administered Medications (Trade) Dose Ordered Sig/Norma Route Start Time Stop Time Status Last Admin Dose Admin Albuterol/ Ipratropium (Duoneb) 3 ml NOW STAT INH 07/07/17 16:49 07/07/17 16:53 DC 07/07/17 17:28 3 ML Azithromycin (Zithromax Tab) 500 mg NOW STAT PO 07/07/17 16:49 07/07/17 16:53 DC 07/07/17 17:23 500 MG Methylprednisolone Sodium Succinate (Solu-Medrol IV) 125 mg NOW STAT IV 07/07/17 16:49 07/07/17 16:53 DC 07/07/17 17:22 125 MG Magnesium Sulfate (Magnesium Sulfate) 1 gm NOW STAT IV 07/07/17 16:49 07/07/17 16:53 DC 07/07/17 17:23 1 GM Ketorolac Tromethamine (Toradol Inj) 30 mg NOW STAT IV 07/07/17 16:53 07/07/17 16:54 DC 07/07/17 17:22 30 MG Oxycodone HCl (Roxicodone Immediate Rel Tab) 5 mg NOW STAT PO 07/07/17 19:05 07/07/17 19:07 DC 07/07/17 19:19 5 MG ECG Per My Interpretation Indication: SOB/dyspnea Rate (beats per minute): 92 Rhythm: normal sinus Findings: other (Normal axis, Normal intervals, no STS) ED Course 1641: The patient was evaluated in room A3. A complete history and physical exam was performed. 1648: Ordered Magnesium Sulfate 1 gm IV, Solu-Medrol 125 mg IV, Azithromycin 500 mg PO, Duoneb 3 mL INH. 1652: Ordered Toradol 30 mg IV. 1901: I reevaluated the patient. Discussed results and discharge instructions: he verbalized understanding and agreement. The patient is ready for discharge. 1901: I discussed the case with Dr. Johnson - [facility]. He states that the patient can be discharged home. He will follow up in the outpatient setting for the left hip. 1904: Ordered Oxycodone HCl 5 mg PO. Medical Decision The patient is a 42 year old white male with a past history of asthma and hypertension, who presents to the Emergency Room with complaints of worsening difficulty breathing that the has been experiencing for the past two days. Differential diagnosis: Etiologies such as infections, reactive airway disease, pneumonia, pneumothorax , COPD, CHF, cardiac ischemia, pulmonary embolism, musculoskeletal, gastrointestinal, as well as others were entertained. Prior records were reviewed. Patient was seen and evaluated at the bedside. Patient has complaints of worsening shortness of breath of last 2 days. Patient is a prior history of asthma. Patient is chronically on steroids. Patient denies any recent hospitalizations or intubations. Patient also did complain of some pain over his left hip. Patient has had a prior procedure to remove the left hip ossification. Patient's also had drainage of the left hip secondary to postoperative hematoma. On exam the patient is mild wheezing but the patient is not in distress. Patient also does have some swelling of that left lateral hip. Finally patient did have blood work completed, chest x-ray, CT of the pelvis. Patient's chest x-ray was clear. Patient's white blood cell count was 24,000 with a left shift. Patient does not appear acutely infected. This may be related to the chronic steroid use. I did discuss the patient's case with the on-call orthopedist. They recommended to add on an ESR and CRP and that they would call him tomorrow for a follow-up appointment. 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 To develop this large of a fluid collection over short period of time would be less likely to be cause be infection. Especially without any overlying skin changes. Patient otherwise feels fairly well. Patient was given prescriptions for home and was pending follow-up with orthopedics likely this week. Patient was told return if he had any worsening symptoms. Patient was given strict follow-up, discharge, and return precautions. All questions were answered. Patient was deemed suitable for outpatient follow-up at this time. Patient agreed with the plan of care and was safely discharged home. Medication Reconcilliation Current Medication List: was personally reviewed by me Blood Pressure Screening Patient's blood pressure: Elevated blood pressure Consults Time Called: [phone] Consulting Physician: Dr. Alex Norris [facility] Returned Call: [phone] I discussed the case with Dr. Alex Norris [facility]. He states that the patient can be discharged home. He will follow up in the outpatient setting for the left hip. Impression Primary Impression: Asthma exacerbation Additional Impression: Hip hematoma, left Scribe Attestation The scribe's documentation has been prepared under my direction and personally reviewed by me in its entirety. I confirm that the note above accurately reflects all work, treatment, procedures, and medical decision making performed by me. Departure Information Dispostion Home / Self-Care Prescriptions Oxycodone Immediate Rel Tab (ROXICODONE IR) 5 Mg Tab 5 MG PO Q6H Y for Pain, #12 TAB Prov: Alexander Rodrigez M.D. 07/07/17 Prednisone (PREDNISONE) 50 Mg Tab 50 MG PO DAILY for 4 Days, #4 TAB Prov: Alexander Rodrigez M.D. 07/07/17 Azithromycin (ZITHROMAX) 250 Mg Tab 250 MG PO DAILY for 4 Days, #4 TAB Prov: Alexander Rodrigez M.D. 07/07/17 Referrals Jason Zavala DO (PCP) Patient Instructions Asthma - [facility], ED Contusion Hip, ED R[facility], [facility] Additional Instructions Please return to the emergency department if you have worsening or recurrent symptoms not amenable to at-home treatment. Please call for a follow-up appointment with her primary care physician. Please take your medications as prescribed. If you have other concerns and/or complaints please feel free to also call your primary care physician's office or return the ED for further evaluation, management, and treatment. You were found to have an elevated blood pressure today (>120 sytolic or >90 diastolic). Per medicare guidelines, you need to follow up with this blood pressure screening with your Primary Care Physician (PCP). For a new PCP call [phone]. You received narcotic or benzodiazepene medication while in the emergency room today. This is an addictive medication that may cause drowziness as well as constipation. Do not drive, operate heavy machinery, or drink alcohol under the influence of this medication. You may take 600 mg Ibuprofen every 6 hours as needed for pain with food for no more than 2 consecutive days. You may take tylenol 1000 mg every 6 hours as needed for pain. You may take motrin and tylenol separately or at the same time. Take your medications as prescribed. If taking an antibiotic consider taking a probiotic and/or eating yogurt, but at the least, please take with food as it can cause upset stomach. Please consider taking your steroids in the morning with food. They may cause you to be more awake and cause upset stomach. Consider taking Zantac or Pepcid for GI upset. You have been examined and treated today on an emergency basis only. This is not a substitute for, or an effort to provide, complete comprehensive medical care. It is impossible to recognize and treat all injuries or illnesses in a single emergency department visit. It is therefore important that you follow up closely with [facility], your PCP, and/or your specialist(s). Call as soon as possible for an appointment. Thank you for your time and consideration. I look forward to speaking with you again soon. Please don't hesitate to call us if you have any questions. Problem Qualifiers Primary Impression: Asthma exacerbation Asthma severity: mild Asthma persistence: persistent Qualified Codes: J45.31 - Mild persistent asthma with (acute) exacerbation Additional Impression: Hip hematoma, left Encounter type: initial encounter Qualified Codes: S70.02XA - Contusion of left hip, initial encounter
[2017-07-07 17:12] LABS: HEMATOCRIT 49.9 % (42-52); HEMOGLOBIN 16.9 g/dL (14.0-18.0); MEAN CELL VOLUME 88.6 fL (80-100); MEAN CORPUSCULAR HGB CONC 33.9 g/dl (32-36); MEAN PLATELET VOLUME 9.5 fL (7.4-10.4); PLATELET COUNT 311 K/uL (130-400); RED CELL DISTRIBUTION WIDTH CV 13.3 % (11.5-14.5); RED CELL DISTRIBUTION WIDTH SD 43.8 fL (36.4-46.3); WHITE BLOOD COUNT 24.05 K/uL (4.8-10.8)
[2017-07-07 17:13] VITALS: O2SAT 94; Ht 167.6 cm; Wt 106.9 kg
[2017-07-07 17:33] LABS: CALCIUM 8.8 mg/dl (8.5-10.1); CREATININE 1.08 mg/dl (0.60-1.40); POTASSIUM 4.5 mmol/L (3.5-5.1)
--- NOTE | 2017-07-07 17:39 | DIAGNOSTIC IMAGING REPORT ---
CHEST ONE VIEW PORTABLE CLINICAL HISTORY: EVALUATE RESPIRATORY DISTRESS.DYSPNEA COMPARISON STUDY: Chest radiograph May 17, 2017. FINDINGS: Spine fusion hardware is partially imaged. Lung volumes are normal. There is no pneumothorax or pleural effusion. There is no evidence for pulmonary edema. Mild cardiomegaly is unchanged. Mediastinal contours are stable. IMPRESSION: No acute cardiopulmonary findings. Electronically signed by: Kj Ojeda M.D. 07/07/2017 5:37 PM Dictated Date/Time: 07/07/2017 5:36 PM
[2017-07-07 17:46] LABS: BASO % 0.2 %; BASO ABS # 0.05 K/uL (0-0.2); EOS % 0.3 %; EOS ABS # 0.07 K/uL (0-0.5); IG# 0.58 K/uL (0.00-0.02); LYMPH % 3.2 %; LYMPH ABS # 0.76 K/uL (1.2-3.4); MONO % 3.2 %; MONO ABS # 0.76 K/uL (0.11-0.59); NEUT % 90.7 %; NEUT ABS # 21.83 K/uL (1.4-6.5)
--- NOTE | 2017-07-07 17:55 | DIAGNOSTIC IMAGING REPORT ---
PE[facility] CT CT DOSE: 559.07 mGy.cm HISTORY: h/o l hip ossification s/p removal and hematoma, swelling L hip TECHNIQUE: Multiaxial CT images of the pelvis were performed and reformatted in the sagittal and coronal plane without the use of contrast. A dose lowering technique was utilized adhering to the principles of ALARA. COMPARISON: Left hip 07/07/2016. FINDINGS: Status near-complete resection of the large area of ossification adjacent to the anterior aspect of the left iliac bone and extending into the anterior thigh musculature. There are few small foci of ossification remaining at this location. Focal soft tissue thickening and a and elongated fluid collection anterior to the left iliac bone at the resection bed. This fluid collection measures 7.7 cm in length and up to 2.7 x 2.5 cm in axial dimension. This is suboptimally evaluated on this noncontrast study. This is entirely nonspecific but could be related to residual postoperative change. There is no gas within the fluid collection at this time. No significant hip effusion. No retroperitoneal fluid or hemorrhage identified. Old post traumatic changes seen within the right femur with an intramedullary eran. The visualized loops of bowel show no wall thickening or obstruction. Normal appendix. The bladder is unremarkable. No pelvic or inguinal lymphadenopathy. IMPRESSION: Status post near complete resection of the large area of ossification adjacent to the anterior left iliac bone and extending into the anterior left thigh musculature. Only a few small foci of ossification remain at this location. There is soft tissue thickening and an elongated fluid collection at the resection site which measures 7.7 x 2.7 x 2.5 cm. This is nonspecific but may represent postoperative seroma/hematoma. An abscess could also be a similar appearance. However, there is no gas identified in the fluid collection at this time. Electronically signed by: Riaz Nguyen M.D. 07/07/2017 5:54 PM Dictated Date/Time: 07/07/2017 5:45 PM
[2017-07-07] MEDS ORDERED: OXYCODONE HCL IR 5 MG TAB (IMMEDIATE RELEASE) PO STA (19:05)
[2017-07-07] MEDS ORDERED: AZIT-60 PO (19:14)
[2017-07-07] MEDS ORDERED: PRED50TA PO (19:14)
[2017-07-07] MEDS ORDERED: OXYC1TAB3 PO (19:14)
[2017-07-07 19:25] VITALS: BP 150/48; PULSE 102; O2SAT 98
[2017-07-10] MEDS ORDERED: VNTHFA/IN INH (00:15)
== END 2017-07-07 19:37 | disposition home or self-care (01) ==
LOC: C.EDB 14:25 → C.EDA 19:37
DX: J45.31 Mild persistent asthma with (acute) exacerbation (principal); S70.02XA Contusion of left hip, initial encounter; X58.XXXA Exposure to other specified factors, initial encounter; I10 Essential (primary) hypertension; Z80.9 Family history of malignant neoplasm, unspecified; Z83.3 Family history of diabetes mellitus; Z83.79 Family history of other diseases of the digestive system; Z84.1 Family history of disorders of kidney and ureter; Z83.6 Family history of other diseases of the respiratory system; Z79.52 Long term (current) use of systemic steroids; Z79.899 Other long term (current) drug therapy; Z88.0 Allergy status to penicillin; Z88.1 Allergy status to other antibiotic agents

== ENCOUNTER 2017-07-10 06:33 | Inpatient (IN) | payer OTHER ==
[2017-07-10] VITALS (7 sets, daily range): BP systolic 111–147; BP diastolic 76–90; PULSE 89–133; TEMP 36.3–38.1; O2SAT 93–100; Ht 167.6 cm; Wt 108.9 kg
[~2017-07-10] VITALS: Ht 167.6 cm; Wt 108.9 kg
[~2017-07-10 06:33] MED LIST changes: +AZIT-60 PO; +PRED50TA PO; +VNTHFA/IN INH
[2017-07-10] MEDS ORDERED: MoRPHine SULFATE 10 MG/ML CARP/VIAL IV STA (06:54)
[2017-07-10] MEDS ORDERED: SODIUM CHLORIDE 0.9% 1000ML 1,000 ML IV STA ×3 (06:54→12:55)
[2017-07-10 07:11] LABS: HEMATOCRIT 47.5 % (42-52); MEAN CELL VOLUME 88.1 fL (80-100); MEAN CORPUSCULAR HEMOGLOBIN 29.7 pg (25-34); MEAN CORPUSCULAR HGB CONC 33.7 g/dl (32-36); MEAN PLATELET VOLUME 9.1 fL (7.4-10.4); PLATELET COUNT 316 K/uL (130-400); RED CELL DISTRIBUTION WIDTH CV 13.4 % (11.5-14.5); RED CELL DISTRIBUTION WIDTH SD 43.5 fL (36.4-46.3); WHITE BLOOD COUNT 25.49 K/uL (4.8-10.8)
--- NOTE | 2017-07-10 07:22 | EMERGENCY ROOM VISIT NOTE ---
History Report prepared by Junior: Wilfrid Dykes Under the Supervision of: Dr. Alexander Rodrigez M.D. First contact with patient: 06:47 Chief Complaint: LEG PAIN,LEG INJURY Stated Complaint: LEFT LEG PAIN History of Present Illness The patient is a 42 year old white male with a past medical history of asthma, HTN, and left hip Heterotopic Ossification who presents to the ED with a cc of constant left hip pain beginning this week. Positive subjective fevers and chills. Describes pain as a "pounding". Pain is improved with rest. Pain is worsened with walking. 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 He had pain and swelling to the left groin at this time and had a CT which showed a fluid collection. Patient has a history of prior procedure of his left hip and has had to have it drained before in the past. He was discharged with plans to follow-up with Dr. Arellano of Orthopedics, but was unable to get an appointment until three days from now. Source of History: patient Onset: this week Position: pelvis (left hip) Quality: other ("pounding") Timing: constant Modifying Factors (Worsening): other (walking) Modifying Factors (Relieving): rest Associated Symptoms: + fevers (subjective), + chills Review of Systems See HPI for pertinent positives and negatives. A total of ten systems were reviewed and were otherwise negative. Past Medical & Surgical Medical Problems: (1) Asthma, Unspecified (2) Hip hematoma, left (3) Hypertension Nos (4) Left Hip Abscess (5) Left HIp Hematoma (6) Left Hip Heterotopic Ossification Family History Cancer Diabetes mellitus Gallbladder disease Heart disease Hypertension Kidney disease Kidney stones Lung disease Seizures Social History Smoking Status: Never Smoker Alcohol Use: occasionally Drug Use: none Marital Status: Housing Status: lives with family Occupation Status: unemployed Current/Historical Medications Scheduled Atorvastatin (Lipitor), 10 MG PO HS Azithromycin (Zithromax), 250 MG PO DAILY Fluticasone Propionate (Nasal) (Flonase Allergy Relief), 2 SPRAYS CARLSO QAM Losartan Potassium (Cozaar), 25 MG PO QAM Mometasone Furoate-Formoterol (Dulera 200/5 Mcg), 2 PUFFS INH BID Montelukast Sodium (Singulair), 10 MG PO HS Omeprazole (Prilosec), 20 MG PO QAM Prednisone (Prednisone), 20 MG PO QAM Prednisone (Prednisone), 50 MG PO DAILY Ranitidine Hcl (Zantac), 150 MG PO HS Scheduled PRN Albuterol Hfa (Ventolin Hfa), 2 PUFFS INH Q6H PRN for SOB/Wheezing Albuterol Sulf (Proventil 0.083% 2.5MG/3ML), 2.5 MG INH Q4 PRN for Shortness of Breath Ipratropium [place] (Atrovent 0.02% Soln), 1 DOSE NEB QID PRN for SOB/Wheezing Allergies Coded Allergies: Amoxicillin (Verified Allergy, Intermediate, HIVES/RASH, 07/10/17) Penicillins (Verified Allergy, Intermediate, RXN TO AMOXICILLIN (SEVERE RASH), 07/10/17) SEVERE RASH Physical Exam Vital Signs Date Time Temp Pulse Resp B/P (MAP) Pulse Ox O2 Delivery O2 Flow Rate FiO2 07/10/17 17:14 36.2 109 16 88/57 98 Oxymask 8 07/10/17 15:56 110 20 97 Mask 10.0 07/10/17 15:12 37.5 109 18 149/90 (109) 94 Room Air 07/10/17 15:02 37.5 118 20 124/80 95 07/10/17 15:00 118 20 124/80 95 Room Air 07/10/17 12:58 115 20 118/80 95 Room Air 07/10/17 10:52 127 20 128/86 94 Room Air 07/10/17 10:38 135 07/10/17 09:41 126 20 156/102 92 Room Air 07/10/17 07:56 124 20 143/89 95 Room Air 07/10/17 07:08 133 07/10/17 06:59 96 Room Air 07/10/17 06:37 37.5 137 24 149/95 96 Room Air Physical Exam GENERAL: Awake, alert, well-appearing, NAD. In pain. HENT: Normocephalic, atraumatic. EYES: Normal conjunctiva. Sclera non-icteric. NECK: Supple. No nuchal rigidity. FROM. RESPIRATORY: CTAB, no rhonchi, wheezing, crackles CARDIAC: Tachycardic rate with a regular rhythm, no MRG ABDOMEN: Soft, NTND, BS+ MSK: No chest wall TTP, no LE edema. Incisional scar over the left anterior and lateral hip. Swelling with mild erythema and calor. Thigh compartment is soft. NVI distally. NEURO: GCS 15, CN 2-12 intact, moves all 4s on command SKIN: No rash or jaundice noted. Medical Decision & Procedures ER Provider Diagnostic Interpretation: Radiology results as stated below per my review and radiologist interpretation: L EXTREMITY NONVASCULAR LIMITED FINDINGS: Irregular hypoechoic collection measuring 6.8 x 3.8 x 6.6 cm (calculated volume 147 mL) is located in the subcutaneous tissue of the anterior left hip at the site of clinical concern. Hyperechogenicity of surrounding fat suggests inflammatory change. Multiple internal echoes evident. IMPRESSION: 1. 6.8 cm collection in the subcutaneous tissue of the left anterior hip could represent a hematoma or abscess. Electronically signed by: Russell Woodward M.D. 07/10/2017 8:01 AM Laboratory Results Test 07/10/17 06:54 07/10/17 07:50 Immature Granulocyte % (Auto) 2.2 % White Blood Count 25.49 K/uL (4.8-10.8) Red Blood Count 5.39 M/uL (4.7-6.1) Hemoglobin 16.0 g/dL (14.0-18.0) Hematocrit 47.5 % (42-52) Mean Corpuscular Volume 88.1 fL (80-100) Mean Corpuscular Hemoglobin 29.7 pg (25-34) Mean Corpuscular Hemoglobin Concent 33.7 g/dl (32-36) Platelet Count 316 K/uL (130-400) Mean Platelet Volume 9.1 fL (7.4-10.4) Neutrophils (%) (Auto) 85.2 % Lymphocytes (%) (Auto) 4.6 % Monocytes (%) (Auto) 7.3 % Eosinophils (%) (Auto) 0.5 % Basophils (%) (Auto) 0.2 % Neutrophils # (Auto) 21.72 K/uL (1.4-6.5) Lymphocytes # (Auto) 1.18 K/uL (1.2-3.4) Monocytes # (Auto) 1.85 K/uL (0.11-0.59) Eosinophils # (Auto) 0.13 K/uL (0-0.5) Basophils # (Auto) 0.05 K/uL (0-0.2) Immature Granulocyte # (Auto) 0.56 K/uL (0.00-0.02) Erythrocyte Sedimentation Rate 47 mm/hr (0-14) Total Bilirubin 0.6 mg/dl (0.2-1) Direct Bilirubin 0.1 mg/dl (0-0.2) Aspartate Amino Transf (AST/SGOT) 27 U/L (15-37) Alanine Aminotransferase (ALT/SGPT) 49 U/L (12-78) Alkaline Phosphatase 62 U/L (45-117) C-Reactive Protein 8.74 mg/dl (0-0.29) Total Protein 7.1 gm/dl (6.4-8.2) Albumin 3.0 gm/dl (3.4-5.0) Prothrombin Time 11.0 SECONDS (9.0-12.0) Prothromb Time International Ratio 1.0 (0.9-1.1) Activated Partial Thromboplast Time 25.2 SECONDS (21.0-31.0) Partial Thromboplastin Ratio 1.0 Laboratory results reviewed by me Medications Administered Medications (Trade) Dose Ordered Sig/Norma Route Start Time Stop Time Status Last Admin Dose Admin Sodium Chloride 1,000 ml @ 999 mls/hr Q1H1M STAT IV 07/10/17 06:54 07/10/17 07:54 DC 07/10/17 07:05 999 MLS/HR Morphine Sulfate (MoRPHine SULFATE INJ) 8 mg NOW STAT IV 07/10/17 06:54 07/10/17 06:56 DC 07/10/17 07:09 8 MG Hydromorphone HCl (Dilaudid Inj) 1 mg NOW STAT IV 07/10/17 07:50 07/10/17 07:51 DC 07/10/17 07:56 1 MG Vancomycin HCl 1750 mg/Sodium Chloride 535 ml @ 200 mls/hr ONE STAT IV 07/10/17 08:09 07/10/17 10:49 DC 07/10/17 09:19 200 MLS/HR Ceftriaxone Sodium (Rocephin Inj) 2 gm NOW STAT IV 07/10/17 08:09 07/10/17 08:11 DC 07/10/17 08:24 2 GM Hydromorphone HCl (Dilaudid Inj) 1 mg NOW STAT IV 07/10/17 09:34 07/10/17 09:36 DC 07/10/17 09:40 1 MG Sodium Chloride 1,000 ml @ 999 mls/hr Q1H1M STAT IV 07/10/17 09:34 07/10/17 10:34 DC 07/10/17 09:40 999 MLS/HR Lidocaine/ Epinephrine (Xylocaine/Epine 1% Inj) 20 ml NOW ONCE INFIL 07/10/17 09:45 07/10/17 09:46 DC 07/10/17 09:40 20 ML Acetaminophen/ Hydrocodone Bitart ([place] 10/325 Tab) 1 tab ONE PRN PO 07/10/17 11:30 07/10/17 19:06 DC 07/10/17 11:45 1 TAB Hydromorphone HCl (Dilaudid Inj) 1 mg NOW STAT IV 07/10/17 11:20 07/10/17 11:22 DC 07/10/17 11:27 1 MG Tramadol HCl (Ultram Tab) 50 mg NOW STAT PO 07/10/17 11:20 07/10/17 11:22 DC 07/10/17 11:44 50 MG Ketorolac Tromethamine (Toradol Inj) 30 mg NOW STAT IV 07/10/17 11:20 07/10/17 11:22 DC 07/10/17 11:29 30 MG Bacitracin (Bacitracin Inj) 100,000 units STK-MED ONCE .ROUTE 07/10/17 15:02 07/10/17 15:03 DC 07/10/17 16:50 100,000 UNITS Albuterol/ Ipratropium (Duoneb) 3 ml NOW ONCE INH 07/10/17 15:45 07/10/17 15:59 DC 07/10/17 15:56 3 ML Vancomycin HCl (Vancomycin Inj) 50 mg STK-MED ONCE .ROUTE 07/10/17 16:37 07/10/17 16:38 DC 07/10/17 16:46 1,000 MG Bupivacaine HCl/ Epinephrine Bitart (Sensorcaine/ Epinephrine 0.5% Mpf 1:200,000) 30 ml STK-MED ONCE .ROUTE 07/10/17 16:51 07/10/17 16:52 DC 07/10/17 16:46 30 ML ECG Per My Interpretation Indication: other (fevers) Rate (beats per minute): 126 Rhythm: sinus tachycardia Findings: other (Normal axis. Normal intervals. ) ED Course 0650: The patient was evaluated in room A3. A complete history and physical exam was performed. 1109: I spoke with orthopedics in the ED. They have seen the patient, and were able to drain a small amount of blood from the patient's hip. They recommended allowing radiology to proceed with their ultrasound guided joint aspiration. 1500: The patient was signed out to Dr. Arauz at the change of shift pending ultrasound guided joint aspiration. Medical Decision The patient is a 42 year old white male with a past medical history of asthma, HTN, and left hip Heterotopic Ossification who presents to the ED with a cc of constant left hip pain beginning this week. Differential diagnosis: Etiologies such as fracture, dislocation, neurovascular compromise, compartment syndrome, soft tissue injury, as well as others were entertained. Prior records were reviewed. Patient was seen and evaluated at the bedside. Patient does have a chronic history of a prior left hip heterotopic ossification status post removal. Patient has developed fluid collections over this area in the past. 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 Patient states that he does have some difficulty with walking. This is worse than his baseline. Patient denies any numbness tingling or weakness. Patient did complain of some subjective fevers and chills. No documented fevers. Patient's pain is constant. Patient did have a CT of the pelvis completed which did show a fluid collection was approximately 7 x 2 x 2 cm. Of note the patient has had a prior left hip fluid collection drained in the OR. Patient did have blood work completed, ultrasound and was given medications for pain control. The patient was pending to see Dr. Arellano on Thursday for further evaluation; however, the patient returned today given that his pain is not improved. Patient blood work was completed. Patient did have mild elevations in ESR and CRP. Patient did have elevation white blood cell count although not much different from prior. Of note the patient is on chronic prednisone and was treated with additional prednisone for recent asthma exacerbation. Patient did have an ultrasound which did show a 6 cm fluid collection over the left hip. This could represent either hematoma or abscess. Given the skin changes including the elevations in his inflammatory markers patient was given antibiotics in the event of a septic joint. This may be more likely a hematoma given that this presented fairly quickly after he had worked on cars several days ago. Patient did complain of subjective fevers and chills without a documented fever here. I did speak with the on-call physician assistant operator who recommended the antibiotics and to be seen in clinic. I did discuss the case with the patient's primary orthopedist who is currently in the operating room. He recommended a hip aspirate performed by radiology under ultrasound guidance. He stated he would see the patient after his next or case. I did discuss the case with the radiologist who is helping to facilitate the left hip aspirate. Attempts were made by both the orthopedic surgeon as well as the radiologist to aspirate the left hip. This did not yield great results. The patient was admitted to orthopedics was taken to the OR. Medication Reconcilliation Current Medication List: was personally reviewed by me Blood Pressure Screening Patient's blood pressure: Normal blood pressure Blood pressure disposition: Did not require urgent referral Consults Time Called: 08 Consulting Physician: Miguel Johnson PA-C - Orthopedics Returned Call: 08 Discussed the patient's case. Miguel Johnson PA-C will consult Dr. Arellano and see if he is available to see the patient. Additional Consults: Time Called: 0825 Consulted Physician: Dr. Arellano - Orthopedics Returned Call: 0833 Additional Comments: Discussed the patient's case. Dr. Arellano will come see the patient. 0846: I spoke with Dr. Arellano again. He recommends consultation with radiology to see if they are able to drain the patient's hip. Time Called: 0855 Consulted Physician: Dr. Ojeda - Radiology Returned Call: 09 Additional Comments: Discussed the patient's case. Dr. Ojeda will see about facilitating a joint aspiration. 0910: I spoke with Dr. Woodward of Radiology. Dr. Ojeda has informed him of the patient's case. He will aspirate the patient's hip using ultrasound guidance. 1445: I spoke w/ RUTH Deutsch who stated patient would be taken to the OR for I&D. Impression Primary Impression: Hip pain Additional Impressions: Hematoma of hip Abscess of hip Scribe Attestation The scribe's documentation has been prepared under my direction and personally reviewed by me in its entirety. I confirm that the note above accurately reflects all work, treatment, procedures, and medical decision making performed by me. Departure Information Dispostion Home / Self-Care Referrals Jason Zavala DO (PCP) Patient Instructions My [facility] Additional Instructions Please return to the emergency department if you have worsening or recurrent symptoms not amenable to at-home treatment. Please call for a follow-up appointment with her primary care physician. Please take your medications as prescribed. If you have other concerns and/or complaints please feel free to also call your primary care physician's office or return the ED for further evaluation, management, and treatment. You received narcotic or benzodiazepene medication while in the emergency room today. This is an addictive medication that may cause drowziness as well as constipation. Do not drive, operate heavy machinery, or drink alcohol under the influence of this medication. You may take 600 mg Ibuprofen every 6 hours as needed for pain with food for no more than 2 consecutive days. You may take tylenol 1000 mg every 6 hours as needed for pain. You may take motrin and tylenol separately or at the same time. Please keep your follow-up appointment on Thursday with the orthopedist. Take your medications as prescribed. If taking an antibiotic consider taking a probiotic and/or eating yogurt, but at the least, please take with food as it can cause upset stomach. You have been examined and treated today on an emergency basis only. This is not a substitute for, or an effort to provide, complete comprehensive medical care. It is impossible to recognize and treat all injuries or illnesses in a single emergency department visit. It is therefore important that you follow up closely with [facility], your PCP, and/or your specialist(s). Call as soon as possible for an appointment. Thank you for your time and consideration. I look forward to speaking with you again soon. Please don't hesitate to call us if you have any questions. Problem Qualifiers Primary Impression: Hip pain Laterality: left Qualified Codes: M25.552 - Pain in left hip Additional Impressions: Hematoma of hip Encounter type: initial encounter Laterality: left Qualified Codes: S70.02XA - Contusion of left hip, initial encounter
[2017-07-10 07:23] LABS: CALCIUM 8.6 mg/dl (8.5-10.1); CREATININE 1.13 mg/dl (0.60-1.40); POTASSIUM 4.1 mmol/L (3.5-5.1)
[2017-07-10 07:26] LABS: TOTAL PROTEIN 7.1 gm/dl (6.4-8.2)
[2017-07-10] MEDS ORDERED: HYDROmorphone INJ 1 MG/ML SYR IV STA ×3 (07:50→11:20)
[2017-07-10 07:59] LABS: BASO % 0.2 %; BASO ABS # 0.05 K/uL (0-0.2); EOS % 0.5 %; EOS ABS # 0.13 K/uL (0-0.5); IG# 0.56 K/uL (0.00-0.02); LYMPH % 4.6 %; LYMPH ABS # 1.18 K/uL (1.2-3.4); MONO % 7.3 %; MONO ABS # 1.85 K/uL (0.11-0.59); NEUT % 85.2 %; NEUT ABS # 21.72 K/uL (1.4-6.5)
--- NOTE | 2017-07-10 08:03 | DIAGNOSTIC IMAGING REPORT ---
L EXTREMITY NONVASCULAR LIMITED CLINICAL HISTORY: 42 years-old Male presenting with L hip fluid collection. TECHNIQUE: Real-time grayscale and limited color Doppler ultrasound imaging of the left hip was performed for a focused evaluation at the site of clinical concern. COMPARISON: CT from 07/07/2017. FINDINGS: Irregular hypoechoic collection measuring 6.8 x 3.8 x 6.6 cm (calculated volume 147 mL) is located in the subcutaneous tissue of the anterior left hip at the site of clinical concern. Hyperechogenicity of surrounding fat suggests inflammatory change. Multiple internal echoes evident. IMPRESSION: 1. 6.8 cm collection in the subcutaneous tissue of the left anterior hip could represent a hematoma or abscess. Electronically signed by: Russell Woodward M.D. 07/10/2017 8:01 AM Dictated Date/Time: 07/10/2017 7:59 AM
[2017-07-10 08:05] LABS: PTT PATIENT 25.2 SECONDS (21.0-31.0)
[2017-07-10] MEDS ORDERED: VANCOMYCIN IV 1,750 MG in SODIUM CHLORIDE 0.9% 500ML 500 ML IV STA (08:09)
[2017-07-10] MEDS ORDERED: CEFTRIAXONE SOD INJ 1 GM ADDVIAL IV STA (08:09)
[2017-07-10] MEDS ORDERED: VANCOMYCIN CONSULT ACTIVE PRN ×2 (08:15→17:15)
[2017-07-10] MEDS ORDERED: PRLSR20 PO (09:20)
[2017-07-10] MEDS ORDERED: ATOR10TA82 PO (09:37)
[2017-07-10] MEDS ORDERED: LOSA1TAB PO (09:37)
[2017-07-10] MEDS ORDERED: ALBINS/ INH (09:45)
[2017-07-10] MEDS ORDERED: RANI150T3 PO (09:45)
[2017-07-10] MEDS ORDERED: LIDOCAINE/EPINEPHRINE 1% 20 ML VIAL INFIL ONE (09:45)
[2017-07-10] MEDS ORDERED: PRED20TA PO (09:45)
[2017-07-10] MEDS ORDERED: TRAMADOL HCL 50 MG TAB PO STA (11:20)
[2017-07-10] MEDS ORDERED: KETOROLAC TROMETHAMINE 30 MG/ML VIAL IV STA (11:20)
[2017-07-10] MEDS ORDERED: HYDROCODONE/ACETAMI 10/325 TAB PO PRN (11:30)
[2017-07-10] MEDS ORDERED: BACITRACIN 50000 UNIT VIAL ONE (15:02)
[2017-07-10] MEDS ORDERED: DEXAMETHASONE SOD INJ 4 MG/ML VIAL ONE (15:39)
[2017-07-10] MEDS ORDERED: FENTANYL CITRATE INJ 50 MCG/1 ML 2 ML VIAL ONE (15:39)
[2017-07-10] MEDS ORDERED: SUCCINYLCHOLINE CHLORIDE 20 MG/ML 10 ML VIAL IV ONE (15:39)
[2017-07-10] MEDS ORDERED: PROPOFOL IV EMULSION 10 MG/ML 20 ML VIAL IV ONE (15:39)
[2017-07-10] MEDS ORDERED: LIDOCAINE HCL 2% 2 ML VIAL (20MG/ML) ONE (15:39)
[2017-07-10] MEDS ORDERED: MIDAZOLAM HCL 1 MG/ML 2ML VIAL ONE (15:39)
[2017-07-10] MEDS ORDERED: ONDANSETRON INJ 2 MG/ML 2 ML VIAL ONE (15:39)
[2017-07-10] MEDS ORDERED: ATRINSX NEB (15:44)
[2017-07-10] MEDS ORDERED: ALBUT/IPRATROP 3MG/0.5MG NEB 3 ML VIAL INH ONE (15:45)
--- NOTE | 2017-07-10 16:01 | DIAGNOSTIC IMAGING REPORT ---
ABSCESS DRAINAGE GUIDANCE CLINICAL HISTORY: 42 years-old Male presenting with L side collection. TECHNIQUE: Real-time grayscale and limited color Doppler ultrasound imaging of the left thigh was performed for ultrasound-guided fine-needle aspiration. COMPARISON: Ultrasound performed earlier the same day. PROCEDURE: The risks, benefits, and alternatives of the procedure were discussed with the patient. Written informed consent was obtained. A timeout was performed to confirm patient identity. The patient was placed supine in ultrasound, and the 6 cm collection in the anterior left thigh was localized by ultrasound. This was targeted for aspiration. The left anterior thigh was prepped and draped in the usual sterile fashion. The superficial soft tissues were infiltrated with 1% lidocaine. Attempted aspiration of the collection was performed under ultrasound guidance with an 18-gauge spinal needle. However, no fluid could be withdrawn. Therefore, no fluid to be sent to the laboratory for analysis. The patient tolerated the procedure well. IMPRESSION: Unsuccessful attempted aspiration of the superficial collection in the anterior left thigh. Electronically signed by: Russell Woodward M.D. 07/10/2017 4:00 PM Dictated Date/Time: 07/10/2017 3:57 PM
[2017-07-10] MEDS ORDERED: BUPIVACAINE 0.5 % 5 MG/1 ML PF 10ML VIAL ONE (16:04)
--- NOTE | 2017-07-10 16:07 | History and Physical ---
History & Physical Date Jul 10, 2017. Chief Complaint left hip pain History of Present Illness The patient is a 42 year old male with complaints of left hip pain. He is approx 1 year s/p heterotopic bone resection, followed by an I & D of a draining hematoma of the left hip area. He has had some discomfort with his hip since then but this acutely worsened about 3 days ago. He was in the ER on Thursday for asthma and also hip pain. Since then he has developed swelling anteriorly, under his previous scar. He c/o fever and chills as well. Past Medical/Surgical History Medical Problems: (1) Asthma, Unspecified (2) Hip hematoma, left (3) Hypertension Nos (4) Left HIp Hematoma (5) Left Hip Heterotopic Ossification Allergies Coded Allergies: Amoxicillin (Verified Allergy, Intermediate, HIVES/RASH, 07/10/17) Penicillins (Verified Allergy, Intermediate, RXN TO AMOXICILLIN (SEVERE RASH), 07/10/17) SEVERE RASH Home Medications Scheduled Atorvastatin (Lipitor), 10 MG PO HS Azithromycin (Zithromax), 250 MG PO DAILY Fluticasone Propionate (Nasal) (Flonase Allergy Relief), 2 SPRAYS CARLOS QAM Losartan Potassium (Cozaar), 25 MG PO QAM Mometasone Furoate-Formoterol (Dulera 200/5 Mcg), 2 PUFFS INH BID Montelukast Sodium (Singulair), 10 MG PO HS Omeprazole (Prilosec), 20 MG PO QAM Prednisone (Prednisone), 20 MG PO QAM Prednisone (Prednisone), 50 MG PO DAILY Ranitidine Hcl (Zantac), 150 MG PO HS Scheduled PRN Albuterol Hfa (Ventolin Hfa), 2 PUFFS INH Q6H PRN for SOB/Wheezing Albuterol Sulf (Proventil 0.083% 2.5MG/3ML), 2.5 MG INH Q4 PRN for Shortness of Breath Ipratropium [place] (Atrovent 0.02% Soln), 1 DOSE NEB QID PRN for SOB/Wheezing Physical Examination Addiitonal Comments: He is alert and oriented. Obvious discomfort. He has a scar on his left anterior thigh/hip area. Skin is intact. He does have some swelling/induration around his scar. Tender to palpation. He has pain and difficulty with straight leg raise. He is able to DF/PF appropriately. He has a ct scan and ultrasound demonstrating fluid collection subcutaneously. His ESR, CRP, WBC were all elevated today Diagnosis Left hip pain, fluid collection. Hematoma vs abscess. Plan of Treatment He was seen and examined by Dr. Arellano today. We attempted aspiration but only got a few drops of blood. Ultrasound guided aspiration was attempted as well without success. After discussion with Ninoska López we will admit him today and do an I & D of the left hip area. Procedure was explained, including alternatives ( antibiotics and continued observation) and consent obtained. Procedure note: Left hip was sterilely prepped with alcohol and using aseptic technique we aspirated a small amount of blood from subcutaneously under his scar on the left hip. He tolerated the procedure well. no complications. dressing applied.
[2017-07-10] MEDS ORDERED: PHENYLEPHRINE 100MCG/ML 5ML SYR ONE (16:29)
[2017-07-10] MEDS ORDERED: VANCOMYCIN HCL 1000MG/20ML VIAL ONE (16:37)
[2017-07-10] MEDS ORDERED: BUPIVACAINE/EPINEPHRINE 0.5% MPF 1:200,000 30 ML VIAL ONE (16:51)
--- NOTE | 2017-07-10 17:08 | [facility] Post Operative Brief Note ---
Immediate Operative Summary Operative Date Jul 10, 2017. Pre-Operative Diagnosis Left Hip Abscess Post-Operative Diagnosis Same Procedure(s) Performed I & D Left Hip Abscess Surgeon Nishant Arellano MD [employer] Surgeon(s) ASHLEY Bell Estimated Blood Loss 30 cc Findings Consistent with Post-Op Diagnosis Fluids (cc crystalloids) 1100 cc Specimens Cultures: #1. left hip fluid for aerobic, anaerobic and gram stain-sent stat at 1648 #2. left hip fluid for aerobic, anaerobic and gram stain-sent stat at 1648 Drains None Anesthesia Type MAC Spinal Regional Complication(s) none Disposition Accompanied Pt To Recover: no Disposition: Recovery Room / PACU
[2017-07-10] MEDS ORDERED: BISACODYL 10 MG SUPP PR PRN (17:15)
[2017-07-10] MEDS ORDERED: METOCLOPRAMIDE HCL INJ 5 MG/ML 2 ML VIAL IV PRN (17:15)
[2017-07-10] MEDS ORDERED: ZOLPIDEM TARTRATE 5 MG TAB PO PRN (17:15)
[2017-07-10] MEDS ORDERED: ALUMINUM/MAGNESIUM/SIMETH (MAALOX MAX) 30 ML UDC PO PRN (17:15)
[2017-07-10] MEDS ORDERED: ONDANSETRON INJ 2 MG/ML 2 ML VIAL IV PRN ×2 (17:15→17:45)
[2017-07-10] MEDS ORDERED: MAGNESIUM HYDROXIDE SUSP 30 ML UDC PO PRN (17:15)
[2017-07-10] MEDS ORDERED: MoRPHine SULFATE 2 MG/ML CARP IV PRN (17:15)
[2017-07-10] MEDS ORDERED: DiphenhydrAMINE HCL 50 MG/ML VIAL IV PRN (17:15)
[2017-07-10] MEDS ORDERED: MEPERIDINE HCL 25 MG/ML CARP ONE (17:37)
[2017-07-10] MEDS ORDERED: EpHEDrine SULFATE INJ 50 MG/ML AMP IV PRN (17:45)
[2017-07-10] MEDS ORDERED: ATROPINE SULFATE 0.1 MG/ML 5ML SYR IV PRN (17:45)
[2017-07-10] MEDS ORDERED: FENTANYL CITRATE INJ 50 MCG/1 ML 2 ML VIAL IV PRN (17:45)
[2017-07-10] MEDS ORDERED: MEPERIDINE HCL 25 MG/ML CARP IV PRN (17:45)
--- NOTE | 2017-07-10 18:29 | Anesthesiology Progress Note ---
Anesthesia Post Op Note Date & Time Jul 10, 2017 at 18:29 Vital Signs Pain Intensity: 0 Vital Signs Past 12 Hours Date Time Temp Pulse Resp B/P (MAP) Pulse Ox O2 Delivery O2 Flow Rate FiO2 07/10/17 18:25 116 18 123/72 97 Nasal Cannula 4 07/10/17 18:10 38.5 115 18 104/76 96 Oxymask 4 07/10/17 18:00 111 17 121/66 97 Oxymask 4 07/10/17 17:50 114 16 120/70 96 Oxymask 4 07/10/17 17:40 115 16 127/73 99 Oxymask 4 07/10/17 17:30 115 18 103/68 99 Oxymask 4 07/10/17 17:20 103 17 111/59 98 Oxymask 8 07/10/17 17:14 36.2 109 16 88/57 98 Oxymask 8 07/10/17 15:56 110 20 97 Mask 10.0 07/10/17 15:12 37.5 109 18 149/90 (109) 94 Room Air 07/10/17 15:02 37.5 118 20 124/80 95 07/10/17 15:00 118 20 124/80 95 Room Air 07/10/17 12:58 115 20 118/80 95 Room Air 07/10/17 10:52 127 20 128/86 94 Room Air 07/10/17 10:38 135 07/10/17 09:41 126 20 156/102 92 Room Air 07/10/17 07:56 124 20 143/89 95 Room Air 07/10/17 07:08 133 07/10/17 06:59 96 Room Air 07/10/17 06:37 37.5 137 24 149/95 96 Room Air Notes Mental Status: alert / awake / arousable, participated in evaluation Pt Amnestic to Procedure: Yes Nausea / Vomiting: adequately controlled Pain: adequately controlled Airway Patency, RR, SpO2: stable & adequate BP & HR: stable & adequate Hydration State: stable & adequate Neuraxial Anesthesia: was administered, sensory block is resolving Anesthetic Complications: no major complications apparent
[2017-07-10] MEDS ORDERED: MONT1TAB3 PO (18:33)
[2017-07-10] MEDS ORDERED: FLUT0.15 NAE (18:33)
[2017-07-10] MEDS: ACETAMINOPHEN 500 MG TAB PO SCH (19:17)
[2017-07-10] MEDS ORDERED: MOME200A INH (19:26)
--- NOTE | 2017-07-10 19:28 | Medical Consult ---
Consultation Date of Consultation: Jul 10, 2017. Attending Physician: Carlin Arellano M.D. Reason for Consultation: Medical management History of Present Illness 42 y/o M who was admitted earlier today s/p L hip abscess I&D with Dr. Arellano. "I feel a bit weird still." He is unable to really qualify this, but does admit to mild nausea from the anesthesia. Tolerating PO without issue though. 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 Pt denies fever, SOB, chest pain, abd pain, v /c/d, LE swelling. Pt was seen in the ED a few nights ago for his asthma, but he feels it is improved now. He missed his AM meds today due to the procedure. Past Medical/Surgical History Medical Problems: (1) Abscess of hip Status: Acute (2) Acute asthma exacerbation Status: Acute (3) Acute asthma exacerbation Status: Acute (4) Asthma Status: Acute (5) Asthma exacerbation Status: Acute (6) Asthma exacerbation Status: Acute (7) Asthma exacerbation Status: Acute (8) Bronchitis Status: Acute (9) Bronchitis Status: Acute (10) Chronic obstructive pulmonary disease Status: Acute (11) COPD exacerbation Status: Acute (12) COPD exacerbation Status: Acute (13) COPD exacerbation Status: Acute (14) COPD with acute exacerbation Status: Acute (15) Cough Status: Acute (16) Fever Status: Acute (17) Hematoma of hip Status: Acute (18) Hip pain Status: Acute (19) Nausea Status: Acute (20) Tachycardia Status: Acute Family History Family history was reviewed; no changes noted. Mother with hx of IN in the setting of DM and some sort of chronic respiratory issue Social History Smoking Status: Never Smoker Alcohol Use: occasionally (2x/month) Drug Use: none Marital Status: Housing Status: lives with family Occupation Status: unemployed Allergies Coded Allergies: Amoxicillin (Verified Allergy, Intermediate, HIVES/RASH, 07/10/17) Penicillins (Verified Allergy, Intermediate, RXN TO AMOXICILLIN (SEVERE RASH), 07/10/17) SEVERE RASH Current Inpatient Medications Current Inpatient Medications Medications (Trade) Dose Ordered Sig/Norma Route Start Time Stop Time Status Last Admin Dose Admin Sodium Chloride 1,000 ml @ 125 mls/hr Q8H STAT IV 07/10/17 12:55 07/10/17 20:54 Ketorolac Tromethamine (Toradol Inj) 30 mg Q6H IV. 07/10/17 20:00 07/12/17 10:59 Oxycodone HCl (Roxicodone Immediate Rel Tab) 1-2 TABS FOR PAIN 1 TABLET ... Q4H PRN PO 07/10/17 17:15 07/24/17 17:14 Morphine Sulfate (MoRPHine SULFATE INJ) 2 mg Q1H PRN IV 07/10/17 17:15 07/24/17 17:14 Acetaminophen (Tylenol Tab) 1,000 mg Q8H PO 07/10/17 19:00 08/09/17 18:59 07/10/17 19:17 1,000 MG Magnesium Hydroxide (Milk Of Magnesia Susp) 30 ml Q6H PRN PO 07/10/17 17:15 08/09/17 17:14 Bisacodyl (Dulcolax Supp) 10 mg DAILY PRN NE 07/10/17 17:15 08/09/17 17:14 Senna (Senokot Tab) 17.2 mg HS PO 07/10/17 21:00 08/09/17 20:59 Docusate Sodium (coLACE CAP) 100 mg BID PO 07/10/17 21:00 08/09/17 20:59 Diphenhydramine HCl (Benadryl Cap) 25 mg Q8H PRN PO 07/10/17 17:15 08/09/17 17:14 Diphenhydramine HCl (Benadryl Inj) 25 mg Q8H PRN IV 07/10/17 17:15 08/09/17 17:14 Al Hydrox/Mg Hydrox/Simethicone (Maalox Max Susp) 15 ml Q4H PRN PO 07/10/17 17:15 08/09/17 17:14 Zolpidem Tartrate (Ambien Tab) 5 mg HSZ PRN PO 07/10/17 17:15 08/09/17 17:14 Multivitamins (Multivitamin Tab) 1 tab QAM PO 07/11/17 09:00 08/10/17 08:59 Ondansetron HCl (Zofran Inj) 4 mg Q6H PRN IV 07/10/17 17:15 08/09/17 17:14 Metoclopramide HCl (Reglan Inj) 10 mg Q6H PRN IV 07/10/17 17:15 08/09/17 17:14 Pantoprazole Sodium (Protonix Tab) 40 mg QAM PO 07/11/17 09:00 07/15/17 08:59 Aspirin (Ecotrin Tab) 325 mg DAILY PO 07/11/17 09:00 08/10/17 08:59 Albuterol (Ventolin Hfa Inhaler) 2 puffs Q6H PRN INH 07/10/17 17:15 08/09/17 17:14 Albuterol Sulfate (Ventolin 0.083% 2.5MG/3ML Neb) 2.5 mg Q4 PRN INH 07/10/17 17:15 08/09/17 17:14 Atorvastatin Calcium (Lipitor Tab) 10 mg HS PO 07/10/17 21:00 08/09/17 20:59 Fluticasone Propionate (Flonase Nasal [place]) 2 sprays QAM CARLOS 07/11/17 09:00 08/10/17 08:59 Losartan Potassium (coZAAR TAB) 25 mg QAM PO 07/11/17 09:00 08/10/17 08:59 Montelukast Sodium (Singulair Tab) 10 mg HS PO 07/10/17 21:00 08/09/17 20:59 Prednisone (PredniSONE TAB) 20 mg QAM PO 07/11/17 09:00 08/10/17 08:59 Ranitidine HCl (zANTac TAB) 150 mg HS PO 07/10/17 21:00 08/09/17 20:59 Miscellaneous Information (Order Awaiting Action) 1 ea QS N/A 07/11/17 00:00 08/10/17 00:00 Vancomycin HCl 1500 mg/Sodium Chloride 530 ml @ 200 mls/hr Q12H IV 07/10/17 18:00 08/21/17 17:59 UNV Miscellaneous Information (Consult) 1 ea UD PRN N/A 07/10/17 17:15 08/09/17 17:14 Fentanyl Citrate (Fentanyl Inj) 25 mcg Q5M PRN IV 07/10/17 17:45 07/10/17 22:45 Meperidine HCl (Demerol Inj) 12.5 mg Q5M PRN IV 07/10/17 17:45 07/10/17 22:45 Ondansetron HCl (Zofran Inj) 4 mg ONE PRN IV 07/10/17 17:45 07/10/17 22:45 Ephedrine Sulfate (EpHEDrine SULFATE INJ) 5 mg Q5M PRN IV 07/10/17 17:45 07/10/17 22:45 Atropine Sulfate (Atropine Sulfate 0.1mg/ml Inj) 0.5 mg Q1M PRN IV 07/10/17 17:45 07/10/17 22:45 Review of Systems Pertinent positives and negatives reviewed in HPI--all others negative Physical Exam Date Time Temp Pulse Resp B/P (MAP) Pulse Ox O2 Delivery O2 Flow Rate FiO2 07/10/17 19:02 37.2 125 20 147/90 (109) 100 Nasal Cannula 3.0 07/10/17 18:30 Nasal Cannula 4.0 07/10/17 18:25 116 18 123/72 97 Nasal Cannula 4 07/10/17 18:10 38.5 115 18 104/76 96 Oxymask 4 07/10/17 18:00 111 17 121/66 97 Oxymask 4 07/10/17 17:50 114 16 120/70 96 Oxymask 4 07/10/17 17:40 115 16 127/73 99 Oxymask 4 07/10/17 17:30 115 18 103/68 99 Oxymask 4 07/10/17 17:20 103 17 111/59 98 Oxymask 8 07/10/17 17:14 36.2 109 16 88/57 98 Oxymask 8 07/10/17 15:56 110 20 97 Mask 10.0 07/10/17 15:12 37.5 109 18 149/90 (109) 94 Room Air 07/10/17 15:02 37.5 118 20 124/80 95 07/10/17 15:00 118 20 124/80 95 Room Air 07/10/17 12:58 115 20 118/80 95 Room Air 07/10/17 10:52 127 20 128/86 94 Room Air 07/10/17 10:38 135 07/10/17 09:41 126 20 156/102 92 Room Air 07/10/17 07:56 124 20 143/89 95 Room Air 07/10/17 07:08 133 07/10/17 06:59 96 Room Air 07/10/17 06:37 37.5 137 24 149/95 96 Room Air General Appearance: no apparent distress, + obese Head: normocephalic, atraumatic Eyes: normal inspection, sclerae normal Respiratory/Chest: normal breath sounds, no respiratory distress Cardiovascular: no edema, + tachycardia (mild) Abdomen/GI: non tender, soft Extremities/Musculoskelatal: no calf tenderness, no pedal edema Neurologic/Psych: alert, oriented x 3, + pertinent finding (anxious appearing) Skin: normal color, warm/dry Laboratory Results Last 24 Hours Test 07/10/17 06:54 07/10/17 07:50 White Blood Count 25.49 K/uL Red Blood Count 5.39 M/uL Hemoglobin 16.0 g/dL Hematocrit 47.5 % Mean Corpuscular Volume 88.1 fL Mean Corpuscular Hemoglobin 29.7 pg Mean Corpuscular Hemoglobin Concent 33.7 g/dl Platelet Count 316 K/uL Mean Platelet Volume 9.1 fL Neutrophils (%) (Auto) 85.2 % Lymphocytes (%) (Auto) 4.6 % Monocytes (%) (Auto) 7.3 % Eosinophils (%) (Auto) 0.5 % Basophils (%) (Auto) 0.2 % Neutrophils # (Auto) 21.72 K/uL Lymphocytes # (Auto) 1.18 K/uL Monocytes # (Auto) 1.85 K/uL Eosinophils # (Auto) 0.13 K/uL Basophils # (Auto) 0.05 K/uL RDW Standard Deviation 43.5 fL RDW Coefficient of Variation 13.4 % Immature Granulocyte % (Auto) 2.2 % Immature Granulocyte # (Auto) 0.56 K/uL Erythrocyte Sedimentation Rate 47 mm/hr Sodium Level 133 mmol/L Potassium Level 4.1 mmol/L Chloride Level 98 mmol/L Carbon Dioxide Level 29 mmol/L Anion Gap 6.0 mmol/L Blood Urea Nitrogen 21 mg/dl Creatinine 1.13 mg/dl Est Creatinine Clear Calc Drug Dose 88.1 ml/min Estimated GFR () 91.1 Estimated GFR (Non- 78.6 BUN/Creatinine Ratio 18.1 Random Glucose 83 mg/dl Calcium Level 8.6 mg/dl Total Bilirubin 0.6 mg/dl Direct Bilirubin 0.1 mg/dl Aspartate Amino Transf (AST/SGOT) 27 U/L Alanine Aminotransferase (ALT/SGPT) 49 U/L Alkaline Phosphatase 62 U/L C-Reactive Protein 8.74 mg/dl Total Protein 7.1 gm/dl Albumin 3.0 gm/dl Prothrombin Time 11.0 SECONDS Prothromb Time International Ratio 1.0 Activated Partial Thromboplast Time 25.2 SECONDS Partial Thromboplastin Ratio 1.0 Assessment & Plan 42 y/o M who was admitted earlier today s/p L hip abscess I&D with Dr. Arellano. L hip abscess I&D: abx, diet, DVT proph as per ortho Failed US guided attempt LE US noted WBC elevated CRP, ESR elevated Asthma: stable, continue home meds Takes chronic prednisone HTN: continue home meds
--- NOTE | 2017-07-10 20:10 | Pharmacy Progress Note ---
Pharmacy Abx Dose Short Note Date of Service Jul 10, 2017. Assessment & Plan Assessment 42 year old male receiving VANC-iv for treatment of left hip abscess Day # 1 of antimicrobial therapy. Plan Vancomycin * Estimated p'kinetics: Vd~0.7L/kg, Ke~0.077hr-1, T1/2~9 hours * LOADING dose: Vanc 1750mg IV + 1000mg IV in OR (total "modified" load ~25mg/kg ) * MAINTENANCE DOSE: VANC 1500mg (13mg/kg) IV q 12 hours * Goal trough level: ~15-20 mcg/mL * VANC Trough level @ Css prior to 07/11/17 51722 dose. * Ordered daily Scr x 3 Pharmacy will continue to follow and will adjust dose/frequency as necessary. Thank you.
[2017-07-10] MEDS: VANCOMYCIN IV 1,500 MG in SODIUM CHLORIDE 0.9% 500ML 500 ML IV SCH (20:29)
[2017-07-10] MEDS: KETOROLAC TROMETHAMINE 30 MG/ML VIAL IV. SCH (20:29)
[2017-07-10] MEDS: SENNA 8.6 MG TAB PO SCH (21:20)
[2017-07-10] MEDS: DOCUSATE SODIUM 100 MG CAP PO SCH (21:20)
[2017-07-10] MEDS: MONTELUKAST SOD 10 MG TAB PO SCH (21:20)
[2017-07-10] MEDS: ATORVASTATIN 10 MG TAB PO SCH (21:20)
[2017-07-10] MEDS: RANITIDINE HCL 150 MG TAB PO SCH (21:21)
[2017-07-10] MEDS: DULERA: ORDER AWAITING ACTION SCH (23:30)
[2017-07-11] VITALS (7 sets, daily range): BP systolic 117–158; BP diastolic 76–94; PULSE 65–104; TEMP 36.4–36.9; O2SAT 93–98
--- NOTE | 2017-07-11 00:41 | OPERATIVE REPORT ---
DATE OF OPERATION: 07/10/2017 SURGEON: Carlin Arellano MD. ANIMAL STICKER: RUTH Godfrey. PREOPERATIVE DIAGNOSIS: Left hip abscess. POSTOPERATIVE DIAGNOSIS: Same. PROCEDURE PERFORMED: Irrigation and debridement of left hip abscess. COMPLICATIONS: None. ESTIMATED BLOOD LOSS: 30 mL FLUID REPLACEMENT: 1100 mL crystalloid fluid replacement. ANESTHESIA: Spinal. DRAINS: None. 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 This was complicated by postoperative hematoma and infection which was treated with I&D successfully and some antibiotics for a period of time. He has not had any real problems in the past 9 months with this. About 3-4 days ago, he started to develop increased hip pain when he had an asthma exacerbation. He had a CT scan which showed some fluid collection. Things progressed over the past 3 days and he presented to the ER this morning. His sed rate and C-reactive protein are elevated and his white count was elevated. Despite being on prednisone, clinically I thought he had an abscess. We had an ultrasound, we tried to aspirate this, but we were unable to aspirate it. We elected to proceed with surgical decompression and debridement. OPERATIVE FINDINGS: Operative findings revealed an obvious gross abscess to the left hip soft tissue area. Did not appear to involve the joint or the bone. SPECIMENS: Cultures x2. OPERATIVE PROCEDURE: The patient taken to the operating room, identified and placed on the operating table in supine position. All contact areas were appropriately padded. The patient had received IV antibiotics preoperatively in the ER. We held all additional antibiotics. Initially, a general anesthetic was going to be implemented, but due to his asthma, anesthesia team elected to do a spinal. A spinal anesthetic was implemented. The left leg was then scrubbed and then prepped with ChloraPrep and draped in usual sterile fashion. An anterior approach to the left hip was then performed using the distal aspect of the previous incision about the distal two-thirds. Dissection was carried directly down to the abscess area. There was gross pus in the subcutaneous tissues with a pretty well-defined pocket. It did not seem to track excessively deep. I opened this up entirely. I curetted it and then debrided it with the use of a rongeur. We spent quite a bit of time debriding this. I then irrigated with 6 liters of pulsatile lavage solution. I injected locally with 30 mL of 0.5% Marcaine with epinephrine. There was not excessive bleeding. We then closed the proximal and distal ends with #1 Prolene suture in a simple fashion. I then packed the central aspect of the wound which was about 5 cm. A dressing composed of 4 x 4's, ABD pad and foam tape was applied with a plan of applying a wound VAC in the future. The patient was then transferred to the recovery room in stable condition. The patient tolerated the procedure well with no complication. All needle and sponge counts were correct at the end of the operation. I attest to the content of the Intraoperative Record and any orders documented therein. Any exceptions are noted below. DEWAYNE
[2017-07-11] MEDS: KETOROLAC TROMETHAMINE 30 MG/ML VIAL IV. SCH ×4 (03:30→20:09)
[2017-07-11] MEDS: ACETAMINOPHEN 500 MG TAB PO SCH ×3 (03:31→18:40)
[2017-07-11 06:19] LABS: HEMATOCRIT 43.8 % (42-52); MEAN CELL VOLUME 90.1 fL (80-100); MEAN CORPUSCULAR HEMOGLOBIN 28.8 pg (25-34); MEAN PLATELET VOLUME 9.1 fL (7.4-10.4); PLATELET COUNT 283 K/uL (130-400); RED CELL DISTRIBUTION WIDTH CV 13.7 % (11.5-14.5); RED CELL DISTRIBUTION WIDTH SD 45.1 fL (36.4-46.3); WHITE BLOOD COUNT 17.42 K/uL (4.8-10.8)
[2017-07-11 06:46] LABS: CALCIUM 7.7 mg/dl (8.5-10.1); CREATININE 1.24 mg/dl (0.60-1.40); POTASSIUM 4.1 mmol/L (3.5-5.1)
--- NOTE | 2017-07-11 07:34 | PROGRESS NOTE ---
DATE: 07/11/2017 SUBJECTIVE: A 42-year-old gentleman postop day 1 from I&D of a left hip abscess. He is doing much better this morning. Much less pain. Denies any chest pain or shortness of breath. Not feeling dizzy or lightheaded. OBJECTIVE: VITAL SIGNS: Temperature is 36.9. Vital signs stable. Slightly tachycardic. GENERAL: Reveals a pleasant, middle-aged male. He is lying in bed and looks much more comfortable than he did yesterday. EXTREMITIES: Examination of the left hip reveals the dressing to be clean, dry, and intact. He can dorsiflex and plantarflex his foot appropriately. He is neurologically intact. LABORATORY DATA: White cell count is improved at 7.42. Hemoglobin 14.0. Hematocrit 43.8. Electrolytes are stable. CULTURE RESULTS: Culture results are pending. Gram stain shows gram positive cocci and clusters. ASSESSMENT: A 42-year-old gentleman postop day 1 from an I&D of a left hip abscess, doing well. This most likely represents a staph infection. Doing much better clinically. PLAN: 1. DVT prophylaxis including thigh-high TEDs, SCDs, and aspirin. 2. PT/OT. We will do some just gait training and make sure of mobilizing him. 3. Infection management. We are going to consult infectious disease. We will wait for culture results. He is going to probably require 2 weeks of IV antibiotics, probably by about 4 weeks of p.o. antibiotics, most likely. He has a wound that is packed and will plan on having the wound care people see him to place a wound VAC. 4. Disposition: He is hoping to be discharged to home. He probably need 2 weeks of IV antibiotics and will need home health to set that up.
[2017-07-11] MEDS: VANCOMYCIN IV 1,500 MG in SODIUM CHLORIDE 0.9% 500ML 500 ML IV SCH ×2 (08:07→20:12)
[2017-07-11] MEDS: DULERA: ORDER AWAITING ACTION SCH ×2 (08:13→14:18)
[2017-07-11] MEDS: LOSARTAN POTASSIUM 25 MG TAB PO SCH (09:00)
[2017-07-11] MEDS: PANTOprazole SOD 40 MG TAB PO SCH (09:00)
[2017-07-11] MEDS: DOCUSATE SODIUM 100 MG CAP PO SCH ×2 (09:00→20:07)
[2017-07-11] MEDS ORDERED: AZITHROMYCIN 250 MG TAB PO SCH (09:00)
[2017-07-11] MEDS: ASPIRIN 325 MG ECTAB PO SCH (09:00)
[2017-07-11] MEDS: MULTIVITAMIN TAB PO SCH (09:00)
[2017-07-11] MEDS ORDERED: NON-FORMULARY MEDICATION (Omeprazole (Prilosec) 20 MG) PO SCH (09:00)
[2017-07-11] MEDS: ALBUTEROL HFA 8 GM INHALER INH PRN ×2 (09:01→14:41)
[2017-07-11] MEDS: ALBUTEROL 0.083% NEBU SOLN 3 ML VIAL INH PRN ×2 (09:01→09:15)
[2017-07-11] MEDS: FLUTICASONE PROPIONATE NA SPR 16 GM BTL NAE SCH (09:01)
[2017-07-11] MEDS: OXYCODONE HCL IR 5 MG TAB (IMMEDIATE RELEASE) PO PRN ×3 (09:07→20:10)
--- NOTE | 2017-07-11 12:20 | Pulmonary Consultation ---
History General Date of Service: Jul 11, 2017. Stated Complaint: Left Leg Pain HPI The patient is a 42 year old male who presents to [facility] with complaints of Left Leg Pain. The patient's primary care provider is Jason Zavala DO. 42-year-old male admitted 07/10/2017 for left hip abscess and underwent I&D on . Patient was having some shortness of breath prior to his admission last Thursday but during our interview he notes he is back to his baseline respiratory status. Patient has a very long history significant for chronic poorly controlled asthma, chronic rhinitis, severe reflux with esophagitis and moderate COPD with an FEV1 of 65%. During our interview the today the patient' s peak flow meter was 300. He notes he is back to his baseline but continues to have postnasal drip and intermittent heartburn at this time which he has had his whole life has been poorly controlled. Denies: Fever, chills, productive cough, pleurisy, classic cardiac chest pain, shortness of breath Review of Systems Constitutional: reports: no symptoms Eyes: reports: no symptoms ENT: reports: no symptoms Respiratory: reports: as stated in HPI Gastrointestinal: reports: no symptoms Genitourinary - Male: reports: no symptoms Musculoskeletal: reports: other (Left hip I&D to mild discomfort) Integumentary: reports: no symptoms Neurologic: reports: no symptoms Psychiatric: reports: no symptoms Endocrine: no symptoms Hematologic / Lymphatic: no symptoms Allergic / Immunologic: no symptoms Past Medical History Past Medical History: 1. Abnormal chest x-ray 2. Acne 3. Allergic rhinitis 4. Allergic rhinitis due to animal dander 5. Allergic rhinitis due to dust mites 6. Asthma/since childhood: severe persistent (history of admissions 8. Choking 9. Compression fracture of lumbar vertebra 10. Moderate COPD (Pre FEV1: 65%) 12. Dyspnea 13. Edema 14. GERD without esophagitis 16. Hip pain, left 17. Hyperlipidemia 18. Hypertension 19. Muscle tear 20. Nasal polyps 21. Obesity 22. Obstructive sleep apnea, adult 23. Pain, lower extremity 24. femur Fx 24. Vertebral Fx Past Medical History: asthma Past Surgical History: 1. History of Back Surgery 2. History of Exploratory Laparotomy 3. History of Femur Repair 4. History of Hip Surgery 5. History of Knee Arthroscopy (Therapeutic) #6 bronchial thermoplasty Past Surgical History: orthopedic surgery Family History Cancer Diabetes mellitus Gallbladder disease Heart disease Hypertension Kidney disease Kidney stones Lung disease Seizures 1. Hypertension 2. Hypercholesterolemia 3. Diabetes Mellitus 4. Acute Myocardial Infarction 5. Colon cancer #6 chronic rhinitis Social History Being A Social Drinker Current Diet Denied: History of Dental care, regularly Drug Use Cocaine use several years ago. hospitalization in July 2010 for bath salts intoxication. 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 Working Part-time Hx Tobacco Use In Past Year?: No Smoking Status: Never Smoker Drug Use: cocaine Marital status: Occupational Status: unemployed Immunizations History of Influenza Vaccine: Yes History of Tetanus Vaccine?: utd History of Pneumococcal: No History of Hepatitis B Vaccine: No History of MDRO History of MDRO: No Allergies Coded Allergies: Amoxicillin (Verified Allergy, Intermediate, HIVES/RASH, 07/10/17) Penicillins (Verified Allergy, Intermediate, RXN TO AMOXICILLIN (SEVERE RASH), 07/10/17) SEVERE RASH Current Medications Reported Home Medications Medications Dose Route/Sig Max Daily Dose Days Date Category Dose Instructions Prednisone 50 Mg Tab 50 Mg PO DAILY 4 07/07/17 Rx Zithromax (Azithromycin) 250 Mg Tab 250 Mg PO DAILY 4 07/07/17 Rx Atrovent 0.02% Soln (Ipratropium [place]) 2.5 Ml Nebu 1 Dose NEB QID PRN 05/17/17 Reported Zantac (Ranitidine HCl) 150 Mg Tab 150 Mg PO HS 07/17/16 Reported Prednisone 20 Mg Tab 20 Mg PO QAM 07/17/16 Reported STILL TAKING BUT CURRENTLY TAKING 50 MG Proventil 0.083% 2.5MG/3ML (Albuterol Sulf) 2.5 Mg/3 Ml Nebu 2.5 Mg INH Q4 PRN 07/17/16 Reported Prilosec (Omeprazole) 20 Mg Capcr 20 Mg PO QAM 07/09/16 Reported Ventolin Hfa (Albuterol) 200 Puffs/99500 Mcg Aers 2 Puffs INH Q6H PRN 07/09/16 Reported Flonase Allergy Relief (Fluticasone Propionate (Nasal)) 50 Mcg/Act Spr 2 Sprays CARLOS QAM 05/15/16 Reported Singulair (Montelukast Sodium) 10 Mg Tab 10 Mg PO HS 05/15/16 Reported Cozaar (Losartan Potassium) 25 Mg Tab 25 Mg PO QAM 05/02/16 Reported Lipitor (Atorvastatin Calcium) 10 Mg Tab 10 Mg PO HS 05/02/16 Reported Dulera 200/5 Mcg (Mometasone Furoate-Formoterol) 1 Aer Aer 2 Puffs INH BID 01/15/15 Reported Physical Physical Exam Vital Signs: Date Time Temp Pulse Resp B/P (MAP) Pulse Ox O2 Delivery O2 Flow Rate FiO2 07/11/17 09:16 104 20 94 Room Air 07/11/17 08:00 Room Air 07/11/17 07:43 36.5 93 18 117/76 (90) 93 Room Air 07/11/17 03:55 36.9 103 16 136/88 (104) 96 Room Air 07/10/17 23:40 36.8 89 16 111/77 (88) 94 Room Air 07/10/17 23:25 Room Air 07/10/17 21:57 36.3 108 18 130/88 (102) 95 Room Air 07/10/17 20:35 37.3 120 20 135/76 (95) 93 Room Air 07/10/17 19:31 36.8 133 20 143/78 (99) 99 Nasal Cannula 2.0 07/10/17 19:10 Nasal Cannula 2.0 07/10/17 19:02 37.2 125 20 147/90 (109) 100 Nasal Cannula 3.0 07/10/17 18:30 38.1 128 18 128/82 (97) 96 Nasal Cannula 4.0 07/10/17 18:30 Nasal Cannula 4.0 07/10/17 18:30 Nasal Cannula 4.0 07/10/17 18:30 Nasal Cannula 4.0 07/10/17 18:25 116 18 123/72 97 Nasal Cannula 4 07/10/17 18:10 38.5 115 18 104/76 96 Oxymask 4 07/10/17 18:00 111 17 121/66 97 Oxymask 4 07/10/17 17:50 114 16 120/70 96 Oxymask 4 07/10/17 17:40 115 16 127/73 99 Oxymask 4 07/10/17 17:30 115 18 103/68 99 Oxymask 4 07/10/17 17:20 103 17 111/59 98 Oxymask 8 07/10/17 17:14 36.2 109 16 88/57 98 Oxymask 8 07/10/17 15:56 110 20 97 Mask 10.0 07/10/17 15:12 37.5 109 18 149/90 (109) 94 Room Air 07/10/17 15:02 37.5 118 20 124/80 95 07/10/17 15:00 118 20 124/80 95 Room Air 07/10/17 12:58 115 20 118/80 95 Room Air General Appearance: WELL-APPEARING, NO APPARENT DISTRESS Head: NORMOCEPHALIC, ATRAUMATIC Eyes: PERRLA, NO DISCHARGE, EOMI, SCLERAE NORMAL ENT: NORMAL EAR EXAM, other (Erythema noted bilateral narrowing) Respiratory: other (Minimal expiratory wheezing) Cardiovasular: REGULAR RATE/RHYTHM, NORMAL S1S2, NO M/G/R, NO MURMUR, NO GALLOP Abdomen: NON TENDER, NORMAL BOWEL SOUNDS, NO REBOUND, NO MASSES, NO GUARDING, NO ORGANOMEGALY, NORMAL RECTAL EXAM Genitourinary - Male: EXTERNAL GENITALIA NORMAL Back: NORMAL INSPECTION, NO MIDLINE TENDERNESS, NO CVA TENDERNESS, NO PARAVERTEBRAL TTP Upper Extremities: NO EDEMA, NO DEFORMITY, NORMAL ROM Lower Extremities: NO EDEMA, NO DEFORMITY, NORMAL ROM, other (Well-healing left I&D site) Pulses: carotid (R) (2+), carotid (L) (2+), posterior tibial (R), posterior tibial (L) Neuro: ALERT, ORIENTED x 3, NORMAL MOTOR EXAM, NORMAL SENSATION, NORMAL CEREBELLAR EXAM Reflexes: biceps (R) (2+), bicpes (L) (2+), triceps (R), achilles (R) (2+), achilles (L) (2+) Babinski Testing: right (downgoing), left (downgoing) Psychiatric: anxious Diagnostics Labs Results Past 24 Hours Test 07/11/17 05:59 Range/Units White Blood Count 17.42 4.8-10.8 K/uL Red Blood Count 4.86 4.7-6.1 M/uL Hemoglobin 14.0 14.0-18.0 g/dL Hematocrit 43.8 42-52 % Mean Corpuscular Volume 90.1 80-100 fL Mean Corpuscular Hemoglobin 28.8 25-34 pg Mean Corpuscular Hemoglobin Concent 32.0 32-36 g/dl RDW Standard Deviation 45.1 36.4-46.3 fL RDW Coefficient of Variation 13.7 11.5-14.5 % Platelet Count 283 130-400 K/uL Mean Platelet Volume 9.1 7.4-10.4 fL Sodium Level 136 136-145 mmol/L Potassium Level 4.1 3.5-5.1 mmol/L Chloride Level 103 98-107 mmol/L Carbon Dioxide Level 27 21-32 mmol/L Anion Gap 6.0 3-11 mmol/L Blood Urea Nitrogen 24 7-18 mg/dl Creatinine 1.24 0.60-1.40 mg/dl Est Creatinine Clear Calc Drug Dose 88.0 ml/min Estimated GFR () 81.4 Estimated GFR (Non- 70.3 BUN/Creatinine Ratio 19.0 10-20 Random Glucose 81 70-99 mg/dl Calcium Level 7.7 8.5-10.1 mg/dl Microbiology Results 07/10/17 Gram Stain - Final, Resulted 07/10/17 Bacterial Culture, Resulted Pending 07/10/17 Gram Stain - Final, Resulted 07/10/17 Bacterial Culture, Resulted Pending Impression Assessment and Plan 42-year-old gentleman admitted for left hip abscess status post I&D currently recovering well: 1. Chronically poorly controlled/severe asthma: At this time the patient's asthma is back to his baseline his peak flow meters at 300 and he is not showing any signs of respiratory insufficiency. I continue him on his current medication regimen even the prednisone to 20 mg daily which is his baseline. The patient on his significant other did have a long discussion about classic asthma triggers such as change in weather, regurgitation/GERD, rhinitis and allergens. We discussed at length change in his diet for his regurgitation as well as possibly initiating a Ailin pot for his chronic rhinitis. Of note his sister does use a [place] pot for her chronic rhinitis and notes tremendous relief. Patient should follow-up with Dr. Jason zavala within a 4-6 week window after his discharge. Signoff: At this time I do not believe the pulmonary team can add any more to this patient's care please recontact the team if the patient's clinical course changes.
[2017-07-11] MEDS ORDERED: VANCOMYCIN TROUGH ONE (19:30)
[2017-07-11] MEDS: MONTELUKAST SOD 10 MG TAB PO SCH (20:07)
[2017-07-11] MEDS: ATORVASTATIN 10 MG TAB PO SCH (20:07)
[2017-07-11] MEDS: SENNA 8.6 MG TAB PO SCH (20:08)
[2017-07-11] MEDS: RANITIDINE HCL 150 MG TAB PO SCH (21:14)
--- NOTE | 2017-07-11 21:18 | Pharmacy Progress Note ---
Pharmacy Abx Dose Short Note Date of Service Jul 11, 2017. Assessment & Plan Assessment 42 year old male receiving Vancomycin 1500mg IV q 12 hours for treatment of hip abscess Day # 2 of antimicrobial therapy. Plan Vancomycin * Pre-steadystate Trough level of 9.0 mcg/mL is subtherapeutic. * Change to 1500 mg IV every 10 hours * Goal trough level for bone/joint infection : 15 to 20 mcg/mL * Trough level ordered for: 07/13 @930 Pharmacy will continue to follow and will adjust dose/frequency as necessary. Thank you.
[2017-07-11] MEDS ORDERED: DAPTOMYCIN CONSULT ACTIVE PRN (22:00)
[2017-07-11] MEDS: DAPTOmycin IV 650 MG in SYRINGE 0 ML IV SCH (23:18)
--- NOTE | 2017-07-11 23:22 | Progress Note ---
Subjective Date of Service: Jul 11, 2017. Subjective Pt evaluation today including: conversation w/ patient, physical exam 42 yo male has left leg pain which is improved today. Patient also complains of postnasal drip and cough. Patient has no other significant complaints today. Problem List Medical Problems: (1) Abscess of hip Status: Acute (2) Acute asthma exacerbation Status: Acute (3) Acute asthma exacerbation Status: Acute (4) Asthma Status: Acute (5) Asthma exacerbation Status: Acute (6) Asthma exacerbation Status: Acute (7) Asthma exacerbation Status: Acute (8) Bronchitis Status: Acute (9) Bronchitis Status: Acute (10) Chronic obstructive pulmonary disease Status: Acute (11) COPD exacerbation Status: Acute (12) COPD exacerbation Status: Acute (13) COPD exacerbation Status: Acute (14) COPD with acute exacerbation Status: Acute (15) Cough Status: Acute (16) Fever Status: Acute (17) Hematoma of hip Status: Acute (18) Hip pain Status: Acute (19) Nausea Status: Acute (20) Tachycardia Status: Acute Review of Systems Constitutional: No fever, No chills Eyes: No worsening of vision ENT: No hearing loss Respiratory: No hemoptysis Cardiac: No chest pain Abdomen: No pain Musculoskeletal: + joint pain Neurologic: No memory loss Psychiatric: No depression symptoms Heme: No abnormal bleeding/bruising Endo: No fatigue Skin: No rash All Other Systems: Reviewed and Negative Medications Current Inpatient Medications Medications (Trade) Dose Ordered Sig/Norma Route Start Time Stop Time Status Last Admin Dose Admin Ketorolac Tromethamine (Toradol Inj) 30 mg Q6H IV. 07/10/17 20:00 07/12/17 10:59 07/12/17 08:09 30 MG Oxycodone HCl (Roxicodone Immediate Rel Tab) 1-2 TABS FOR PAIN 1 TABLET ... Q4H PRN PO 07/10/17 17:15 07/24/17 17:14 07/11/17 20:10 10 MG Morphine Sulfate (MoRPHine SULFATE INJ) 2 mg Q1H PRN IV 07/10/17 17:15 07/24/17 17:14 Acetaminophen (Tylenol Tab) 1,000 mg Q8H PO 07/10/17 19:00 08/09/17 18:59 07/11/17 19:32 1,000 MG Magnesium Hydroxide (Milk Of Magnesia Susp) 30 ml Q6H PRN PO 07/10/17 17:15 08/09/17 17:14 Bisacodyl (Dulcolax Supp) 10 mg DAILY PRN [place] 07/10/17 17:15 08/09/17 17:14 Senna (Senokot Tab) 17.2 mg HS PO 07/10/17 21:00 08/09/17 20:59 07/11/17 20:08 17.2 MG Docusate Sodium (coLACE CAP) 100 mg BID PO 07/10/17 21:00 08/09/17 20:59 07/11/17 20:13 100 MG Diphenhydramine HCl (Benadryl Cap) 25 mg Q8H PRN PO 07/10/17 17:15 08/09/17 17:14 Diphenhydramine HCl (Benadryl Inj) 25 mg Q8H PRN IV 07/10/17 17:15 08/09/17 17:14 Al Hydrox/Mg Hydrox/Simethicone (Maalox Max Susp) 15 ml Q4H PRN PO 07/10/17 17:15 08/09/17 17:14 Zolpidem Tartrate (Ambien Tab) 5 mg HSZ PRN PO 07/10/17 17:15 08/09/17 17:14 Multivitamins (Multivitamin Tab) 1 tab QAM PO 07/11/17 09:00 08/10/17 08:59 07/11/17 08:12 1 TAB Ondansetron HCl (Zofran Inj) 4 mg Q6H PRN IV 07/10/17 17:15 08/09/17 17:14 Metoclopramide HCl (Reglan Inj) 10 mg Q6H PRN IV 07/10/17 17:15 08/09/17 17:14 Pantoprazole Sodium (Protonix Tab) 40 mg QAM PO 07/11/17 09:00 07/15/17 08:59 07/11/17 08:12 40 MG Aspirin (Ecotrin Tab) 325 mg DAILY PO 07/11/17 09:00 08/10/17 08:59 07/11/17 08:14 325 MG Albuterol (Ventolin Hfa Inhaler) 2 puffs Q6H PRN INH 07/10/17 17:15 08/09/17 17:14 07/11/17 08:08 2 PUFFS Albuterol Sulfate (Ventolin 0.083% 2.5MG/3ML Neb) 2.5 mg Q4 PRN INH 07/10/17 17:15 08/09/17 17:14 07/11/17 09:15 2.5 MG Atorvastatin Calcium (Lipitor Tab) 10 mg HS PO 07/10/17 21:00 08/09/17 20:59 07/11/17 20:07 10 MG Fluticasone Propionate (Flonase Nasal [place]) 2 sprays QAM CARLOS 07/11/17 09:00 08/10/17 08:59 07/11/17 08:08 2 SPRAYS Losartan Potassium (coZAAR TAB) 25 mg QAM PO 07/11/17 09:00 08/10/17 08:59 07/11/17 08:13 25 MG Montelukast Sodium (Singulair Tab) 10 mg HS PO 07/10/17 21:00 08/09/17 20:59 07/11/17 20:07 10 MG Prednisone (PredniSONE TAB) 20 mg QAM PO 07/11/17 09:00 08/10/17 08:59 07/11/17 08:12 20 MG Ranitidine HCl (zANTac TAB) 150 mg HS PO 07/10/17 21:00 08/09/17 20:59 07/11/17 21:14 150 MG Miscellaneous Information (Order Awaiting Action) 1 ea QS N/A 07/11/17 00:00 08/10/17 00:00 07/11/17 08:13 1 EA Daptomycin (Consult) 1 ea UD PRN N/A 07/11/17 22:00 08/10/17 21:59 Daptomycin 650 mg/ Syringe 13 ml @ 6.5 mls/min Q24H IV 07/11/17 23:00 08/22/17 22:59 07/11/17 23:18 6.5 MLS/MIN Objective Vital Signs Date Time Temp Pulse Resp B/P (MAP) Pulse Ox O2 Delivery O2 Flow Rate FiO2 07/11/17 15:28 36.5 83 16 135/81 (99) 98 Room Air 07/11/17 12:50 78 95 3/17/18 11:30 36.8 65 18 158/90 (112) 93 Room Air 07/11/17 09:16 104 20 94 Room Air 07/11/17 08:00 Room Air 07/11/17 07:43 36.5 93 18 117/76 (90) 93 Room Air 07/11/17 03:55 36.9 103 16 136/88 (104) 96 Room Air 07/10/17 23:40 36.8 89 16 111/77 (88) 94 Room Air 07/10/17 23:25 Room Air Physical Exam Comments: General Appearance: no apparent distress, + obese Head: normocephalic, atraumatic Eyes: normal inspection, sclerae normal Respiratory/Chest: normal breath sounds, no respiratory distress Cardiovascular: no edema, RRR Abdomen/GI: non tender, soft Extremities/Musculoskelatal: no calf tenderness, no pedal edema Neurologic/Psych: alert, oriented x 3, Skin: normal color, warm/dry Laboratory Results Last 24 Hours Test 07/11/17 05:59 07/11/17 19:31 White Blood Count 17.42 K/uL Red Blood Count 4.86 M/uL Hemoglobin 14.0 g/dL Hematocrit 43.8 % Mean Corpuscular Volume 90.1 fL Mean Corpuscular Hemoglobin 28.8 pg Mean Corpuscular Hemoglobin Concent 32.0 g/dl RDW Standard Deviation 45.1 fL RDW Coefficient of Variation 13.7 % Platelet Count 283 K/uL Mean Platelet Volume 9.1 fL Sodium Level 136 mmol/L Potassium Level 4.1 mmol/L Chloride Level 103 mmol/L Carbon Dioxide Level 27 mmol/L Anion Gap 6.0 mmol/L Blood Urea Nitrogen 24 mg/dl Creatinine 1.24 mg/dl Est Creatinine Clear Calc Drug Dose 88.0 ml/min Estimated GFR () 81.4 Estimated GFR (Non- 70.3 BUN/Creatinine Ratio 19.0 Random Glucose 81 mg/dl Calcium Level 7.7 mg/dl Vancomycin Level Trough 9.0 mcg/ml Assessment and Plan 42 y/o M who was admitted earlier today s/p L hip abscess I&D with Dr. Arellano. L hip abscess I&D: abx, diet, DVT proph as per ortho S/P I and D. Likely staph infection Ortho consulted ID will continue current antibiotics WBC decreased. No fevers. wo;; continue to monitor. Asthma: stable, continue home meds Takes chronic prednisone HTN: continue home meds BP at goal.
[2017-07-12] MEDS: KETOROLAC TROMETHAMINE 30 MG/ML VIAL IV. SCH ×2 (02:30→08:09)
[2017-07-12] MEDS: ALBUTEROL HFA 8 GM INHALER INH PRN ×3 (02:31→22:42)
[2017-07-12] MEDS: ACETAMINOPHEN 500 MG TAB PO SCH ×3 (02:32→18:54)
[2017-07-12] MEDS ORDERED: VANCOMYCIN IV 1,500 MG in SODIUM CHLORIDE 0.9% 500ML 500 ML IV SCH (04:00)
[2017-07-12 05:42] LABS: HEMATOCRIT 40.2 % (42-52); HEMOGLOBIN 13.3 g/dL (14.0-18.0); MEAN CELL VOLUME 88.7 fL (80-100); MEAN CORPUSCULAR HEMOGLOBIN 29.4 pg (25-34); MEAN CORPUSCULAR HGB CONC 33.1 g/dl (32-36); MEAN PLATELET VOLUME 8.9 fL (7.4-10.4); PLATELET COUNT 307 K/uL (130-400); RED CELL DISTRIBUTION WIDTH CV 13.3 % (11.5-14.5); RED CELL DISTRIBUTION WIDTH SD 43.4 fL (36.4-46.3); WHITE BLOOD COUNT 15.54 K/uL (4.8-10.8)
[2017-07-12 06:07] LABS: CALCIUM 8.5 mg/dl (8.5-10.1); CREATININE 1.08 mg/dl (0.60-1.40); POTASSIUM 3.8 mmol/L (3.5-5.1)
--- NOTE | 2017-07-12 06:36 | PROGRESS NOTE ---
DATE: 07/12/2017 SUBJECTIVE: A 42-year-old gentleman postop day 2 from I&D of a left hip abscess. He is doing okay. His hip is sore but much improved pain hu. He was seen by wound care yesterday and dressing changed. They are waiting until drainage slows down a little bit to consider the wound VAC placement. No other complaints. OBJECTIVE: VITAL SIGNS: Temperature 36.4. Vital signs stable. GENERAL: Reveals a pleasant, middle-aged male. He is lying in bed, looks pretty comfortable. EXTREMITIES: Examination of left hip reveals the dressing to be in place. Just a little bit of drainage on his dressing. Nothing excessive. Some mild swelling. LABORATORY DATA: Hemoglobin is 13.3. Hematocrit 40.2. White blood cell count improved at 15.54. Culture results are growing Staph aureus. Sensitivities are pending. ASSESSMENT: A 42-year-old gentleman postop day 2 from I&D of a left hip abscess. I do not think this can be any excessive bleeding from this wound as he did not bleed much during surgery. There is really a nonissue. He needs wound VAC placed once able to do so. He is going to need a couple weeks of IV antibiotics. We will wait for sensitivities to make sure he is on the appropriate antibiotics. ID has been consulted. He does have very difficult medical management with his asthma and medicines to help manage. PLAN: 1. DVT prophylaxis including thigh-high TEDs, SCDs, and aspirin twice a day. 2. PT/OT. He can weightbear as tolerated. No therapy really indicated than normal activities. 3. Antibiotic management. ID has been consulted. We will plan on 2 weeks of IV antibiotics at a minimum. We will get a PICC line placed. 4. Medical management as per the medicine service. 5. Wound management. The wound care team has seen him. I think he would benefit from a wound VAC once able. Hopefully, they can do this tomorrow or today. 6. Disposition: Plan to discharge to home with some outpatient IV antibiotics once medically stable and on appropriate antibiotics and stable.
[2017-07-12 07:10] VITALS: BP 146/88; PULSE 79; TEMP 36.6; O2SAT 98
[2017-07-12] MEDS: DULERA: ORDER AWAITING ACTION SCH ×4 (08:00→23:25)
[2017-07-12] MEDS: FLUTICASONE PROPIONATE NA SPR 16 GM BTL NAE SCH (08:08)
[2017-07-12] MEDS: PANTOprazole SOD 40 MG TAB PO SCH (08:12)
[2017-07-12] MEDS: MULTIVITAMIN TAB PO SCH (08:12)
[2017-07-12] MEDS: DOCUSATE SODIUM 100 MG CAP PO SCH ×2 (08:13→20:53)
[2017-07-12] MEDS: LOSARTAN POTASSIUM 25 MG TAB PO SCH (08:13)
[2017-07-12] MEDS: ASPIRIN 325 MG ECTAB PO SCH (08:14)
--- NOTE | 2017-07-12 10:59 | Progress Note ---
Progress Note Date of Service Jul 12, 2017. Progress Note Hospitalist service will sign off case as only active issue is the I and D abscess. Primary service already contacted Infectious disease. No further input is likely required from hospitalist service Please call if any change in clinical status of patient, or if any questions arise on the management of this patient.
[2017-07-12] MEDS: OXYCODONE HCL IR 5 MG TAB (IMMEDIATE RELEASE) PO PRN ×2 (11:52→19:44)
--- NOTE | 2017-07-12 15:19 | Medical Consult ---
Consultation Date of Consultation: Jul 12, 2017. Attending Physician: Carlin Arellano M.D. Reason for Consultation: Antibiotic management History of Present Illness 42-year-old male referred for antibiotic management for left hip abscess. 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 Patient now presents with 1 week history of progressively worsening redness, swelling, and drainage from his left hip. He eventually came to the emergency department where he was found to have a large superficial collection, now is undergone incision and drainage of superficial abscess collection. Culture now growing Staph aureus. Infection did not appear to extend into joint space. 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 He currently is afebrile, tolerating vancomycin without apparent difficulty. Sensitivities of Staph aureus isolate are pending. Past Medical/Surgical History Medical Problems: (1) Abscess of hip Status: Acute (2) Acute asthma exacerbation Status: Acute (3) Acute asthma exacerbation Status: Acute (4) Asthma Status: Acute (5) Asthma exacerbation Status: Acute (6) Asthma exacerbation Status: Acute (7) Asthma exacerbation Status: Acute (8) Bronchitis Status: Acute (9) Bronchitis Status: Acute (10) Chronic obstructive pulmonary disease Status: Acute (11) COPD exacerbation Status: Acute (12) COPD exacerbation Status: Acute (13) COPD exacerbation Status: Acute (14) COPD with acute exacerbation Status: Acute (15) Cough Status: Acute (16) Fever Status: Acute (17) Hematoma of hip Status: Acute (18) Hip pain Status: Acute (19) Nausea Status: Acute (20) Tachycardia Status: Acute Family History Cancer Diabetes mellitus Gallbladder disease Heart disease Hypertension Kidney disease Kidney stones Lung disease Seizures Social History Smoking Status: Never Smoker Alcohol Use: occasionally (2x/month) Drug Use: none Marital Status: Housing Status: lives with family Occupation Status: unemployed Allergies Coded Allergies: Amoxicillin (Verified Allergy, Intermediate, HIVES/RASH, 07/10/17) Penicillins (Verified Allergy, Intermediate, RXN TO AMOXICILLIN (SEVERE RASH), 07/10/17) SEVERE RASH Current Inpatient Medications Current Inpatient Medications Medications (Trade) Dose Ordered Sig/Norma Route Start Time Stop Time Status Last Admin Dose Admin Oxycodone HCl (Roxicodone Immediate Rel Tab) 1-2 TABS FOR PAIN 1 TABLET ... Q4H PRN PO 07/10/17 17:15 07/24/17 17:14 07/12/17 11:52 10 MG Morphine Sulfate (MoRPHine SULFATE INJ) 2 mg Q1H PRN IV 07/10/17 17:15 07/24/17 17:14 Acetaminophen (Tylenol Tab) 1,000 mg Q8H PO 07/10/17 19:00 08/09/17 18:59 07/12/17 11:44 1,000 MG Magnesium Hydroxide (Milk Of Magnesia Susp) 30 ml Q6H PRN PO 07/10/17 17:15 08/09/17 17:14 Bisacodyl (Dulcolax Supp) 10 mg DAILY PRN [place] 07/10/17 17:15 08/09/17 17:14 Senna (Senokot Tab) 17.2 mg HS PO 07/10/17 21:00 08/09/17 20:59 07/11/17 20:08 17.2 MG Docusate Sodium (coLACE CAP) 100 mg BID PO 07/10/17 21:00 08/09/17 20:59 07/12/17 08:13 100 MG Diphenhydramine HCl (Benadryl Cap) 25 mg Q8H PRN PO 07/10/17 17:15 08/09/17 17:14 Diphenhydramine HCl (Benadryl Inj) 25 mg Q8H PRN IV 07/10/17 17:15 08/09/17 17:14 Al Hydrox/Mg Hydrox/Simethicone (Maalox Max Susp) 15 ml Q4H PRN PO 07/10/17 17:15 08/09/17 17:14 Zolpidem Tartrate (Ambien Tab) 5 mg HSZ PRN PO 07/10/17 17:15 08/09/17 17:14 Multivitamins (Multivitamin Tab) 1 tab QAM PO 07/11/17 09:00 08/10/17 08:59 07/12/17 08:12 1 TAB Ondansetron HCl (Zofran Inj) 4 mg Q6H PRN IV 07/10/17 17:15 08/09/17 17:14 Metoclopramide HCl (Reglan Inj) 10 mg Q6H PRN IV 07/10/17 17:15 08/09/17 17:14 Pantoprazole Sodium (Protonix Tab) 40 mg QAM PO 07/11/17 09:00 07/15/17 08:59 07/12/17 08:12 40 MG Aspirin (Ecotrin Tab) 325 mg DAILY PO 07/11/17 09:00 08/10/17 08:59 07/12/17 08:14 325 MG Albuterol (Ventolin Hfa Inhaler) 2 puffs Q6H PRN INH 07/10/17 17:15 08/09/17 17:14 07/12/17 08:08 2 PUFFS Albuterol Sulfate (Ventolin 0.083% 2.5MG/3ML Neb) 2.5 mg Q4 PRN INH 07/10/17 17:15 08/09/17 17:14 07/11/17 09:15 2.5 MG Atorvastatin Calcium (Lipitor Tab) 10 mg HS PO 07/10/17 21:00 08/09/17 20:59 07/11/17 20:07 10 MG Fluticasone Propionate (Flonase Nasal [place]) 2 sprays QAM CARLOS 07/11/17 09:00 08/10/17 08:59 07/12/17 08:08 2 SPRAYS Losartan Potassium (coZAAR TAB) 25 mg QAM PO 07/11/17 09:00 08/10/17 08:59 07/12/17 08:13 25 MG Montelukast Sodium (Singulair Tab) 10 mg HS PO 07/10/17 21:00 08/09/17 20:59 07/11/17 20:07 10 MG Prednisone (PredniSONE TAB) 20 mg QAM PO 07/11/17 09:00 08/10/17 08:59 07/12/17 08:12 20 MG Ranitidine HCl (zANTac TAB) 150 mg HS PO 07/10/17 21:00 08/09/17 20:59 07/11/17 21:14 150 MG Miscellaneous Information (Order Awaiting Action) 1 ea QS N/A 07/11/17 00:00 08/10/17 00:00 07/11/17 08:13 1 EA Daptomycin (Consult) 1 ea UD PRN N/A 07/11/17 22:00 08/10/17 21:59 Daptomycin 650 mg/ Syringe 13 ml @ 6.5 mls/min Q24H IV 07/11/17 23:00 08/22/17 22:59 07/11/17 23:18 6.5 MLS/MIN Heparin Sodium (Porcine) (Heparin 10 Unit/ ml 5 ml Flush) 5 ml PRN PRN FLUSH 07/12/17 11:30 08/11/17 11:29 Review of Systems All systems were reviewed and are negative except as per HPI Physical Exam Date Time Temp Pulse Resp B/P (MAP) Pulse Ox O2 Delivery O2 Flow Rate FiO2 07/12/17 07:30 Room Air 07/12/17 07:10 36.6 79 18 146/88 (107) 98 Room Air 07/11/17 23:40 36.4 87 17 148/94 (112) 95 Room Air 07/11/17 19:30 Room Air 07/11/17 15:28 36.5 83 16 135/81 (99) 98 Room Air General Appearance: WD/WN, no apparent distress, + obese Head: normocephalic, atraumatic Eyes: normal inspection, EOMI, sclerae normal ENT: normal ENT inspection, hearing grossly normal, pharynx normal Neck: supple, no adenopathy, thyroid normal, trachea midline Respiratory/Chest: chest non-tender, lungs clear, normal breath sounds, no respiratory distress Cardiovascular: regular rate, rhythm, no gallop, no murmur Abdomen/GI: normal bowel sounds, non tender, soft, no organomegaly Back: normal inspection, no CVA tenderness Extremities/Musculoskelatal: no calf tenderness, normal capillary refill, non- tender Neurologic/Psych: alert, normal mood/affect, oriented x 3 Skin: normal color, no rash, + pertinent finding (Wound VAC in place left hip) Lymphatic: no adenopathy Laboratory Results RUN DATE: 07/12/17 [facility] PAGE 1 RUN TIME: 2158 Specimen Inquiry PATIENT: JEFFREY GENTILE JR LOC: [place] U # : [id number] AGE/SX: 42/M ROOM: [facility] REG : 07/10/[address]: Carlin Arellano M.D. : 1975 BED: 1 DIS : STATUS: ADM IN TLOC: SPEC #: [id number] KWESI: 07/10/17 STATUS: RES REQ #: [id number] RECD: 07/10/[address]: Carlin Arellano M.D. SOURCE: JOINT FLSP ENTR: 07/10/[address]: Jason Zavala DO SPDES: Cornel RICHARDS Kyle D., M.D. ORDERED: AER/JOSE CULTSMR COMMENTS: CULTURE #1 Procedure Result Verified Site GRAM STAIN Final 07/10/17-1723 RESULT MANY GRAM POSITIVE COCCI IN CLUSTERS MANY WBCs SEEN MOSTLY PMNs OR AER/JOSE CULT Preliminary 07/12/17-145 Organism 1 STAPHYLOCOCCUS AUREUS QUANITY MANY SENS SENSITIVITY TO FOLLOW Last 24 Hours Test 07/11/17 19:31 07/12/17 05:28 Vancomycin Level Trough 9.0 mcg/ml White Blood Count 15.54 K/uL Red Blood Count 4.53 M/uL Hemoglobin 13.3 g/dL Hematocrit 40.2 % Mean Corpuscular Volume 88.7 fL Mean Corpuscular Hemoglobin 29.4 pg Mean Corpuscular Hemoglobin Concent 33.1 g/dl RDW Standard Deviation 43.4 fL RDW Coefficient of Variation 13.3 % Platelet Count 307 K/uL Mean Platelet Volume 8.9 fL Sodium Level 137 mmol/L Potassium Level 3.8 mmol/L Chloride Level 102 mmol/L Carbon Dioxide Level 30 mmol/L Anion Gap 5.0 mmol/L Blood Urea Nitrogen 26 mg/dl Creatinine 1.08 mg/dl Est Creatinine Clear Calc Drug Dose 101.0 ml/min Estimated GFR () 96.2 Estimated GFR (Non- 83.0 BUN/Creatinine Ratio 23.9 Random Glucose 100 mg/dl Calcium Level 8.5 mg/dl L EXTREMITY NONVASCULAR LIMITED CLINICAL HISTORY: 42 years-old Male presenting with L hip fluid collection. TECHNIQUE: Real-time grayscale and limited color Doppler ultrasound imaging of the left hip was performed for a focused evaluation at the site of clinical concern. COMPARISON: CT from 07/07/2017. FINDINGS: Irregular hypoechoic collection measuring 6.8 x 3.8 x 6.6 cm (calculated volume 147 mL) is located in the subcutaneous tissue of the anterior left hip at the site of clinical concern. Hyperechogenicity of surrounding fat suggests inflammatory change. Multiple internal echoes evident. IMPRESSION: 1. 6.8 cm collection in the subcutaneous tissue of the left anterior hip could represent a hematoma or abscess. Electronically signed by: Russell Woodward M.D. 07/10/2017 8:01 AM Dictated Date/Time: 07/10/2017 7:59 AM Assessment & Plan Left hip abscess with Staph aureus, suspect this may be MRSA given prior MRSA infections. Given morbid obesity and likely need for outpatient therapy, daptomycin appropriate therapy pending further sensitivity results. Length of IV antibiotics will be determined by clinical response. Will follow.
[2017-07-12 15:20] VITALS: BP 166/81; PULSE 99; TEMP 36.9; O2SAT 96
[2017-07-12] MEDS ORDERED: ACET-24 PO (19:47)
[2017-07-12] MEDS ORDERED: ASPEC325 PO (19:47)
[2017-07-12] MEDS ORDERED: TRAM-10 PO (19:47)
--- NOTE | 2017-07-12 19:50 | Discharge Instructions ---
Discharge Instructions Date of Service Jul 12, 2017. Admission Reason for Admission: Left Leg Pain Discharge Discharge Diagnosis / Problem: I and D of left hip abscess Discharge Goals Goal(s): Decrease discomfort, Improve function, Improve disease control, Therapeutic intervention Activity Recommendations Activity Limitations: per Instructions/Follow-up section . Instructions / Follow-Up Instructions / Follow-Up Wound care as per wound care service Return to Orthopedic clinic 2 weeks from OR Date. Current Hospital Diet Patient's current hospital diet: Regular Diet Discharge Diet Recommended Diet: Regular Diet Procedures Procedures Performed: I & D Left Hip Abscess Pending Studies Studies pending at discharge: no Medical Emergencies . Who to Call and When: Medical Emergencies: If at any time you feel your situation is an emergency, please call 911 immediately. . Non-Emergent Contact Non-Emergency issues call your: Surgeon . "Provider Documentation" section prepared by Carlin Arellano. .
[2017-07-12] MEDS: RANITIDINE HCL 150 MG TAB PO SCH (20:53)
[2017-07-12] MEDS: SENNA 8.6 MG TAB PO SCH (20:53)
[2017-07-12] MEDS: MONTELUKAST SOD 10 MG TAB PO SCH (20:53)
[2017-07-12] MEDS: ATORVASTATIN 10 MG TAB PO SCH (20:53)
[2017-07-12] MEDS: DAPTOmycin IV 650 MG in SYRINGE 0 ML IV SCH (22:42)
[2017-07-12 23:22] VITALS: BP 144/79; PULSE 89; TEMP 36.8; O2SAT 95
[2017-07-12] MEDS ORDERED: NURSING DECISION MEDICATION ORDER SCH (23:45)
[2017-07-13] MEDS: OXYCODONE HCL IR 5 MG TAB (IMMEDIATE RELEASE) PO PRN ×3 (00:03→13:19)
[2017-07-13] MEDS: ACETAMINOPHEN 500 MG TAB PO SCH ×2 (05:43→14:38)
[2017-07-13 06:16] LABS: HEMATOCRIT 45.7 % (42-52); HEMOGLOBIN 14.7 g/dL (14.0-18.0); MEAN CELL VOLUME 89.6 fL (80-100); MEAN CORPUSCULAR HEMOGLOBIN 28.8 pg (25-34); MEAN CORPUSCULAR HGB CONC 32.2 g/dl (32-36); PLATELET COUNT 397 K/uL (130-400); RED CELL DISTRIBUTION WIDTH CV 13.2 % (11.5-14.5); RED CELL DISTRIBUTION WIDTH SD 43.5 fL (36.4-46.3); WHITE BLOOD COUNT 15.16 K/uL (4.8-10.8)
[2017-07-13 06:33] LABS: CREATININE 1.05 mg/dl (0.60-1.40)
[2017-07-13] MEDS: ALBUTEROL HFA 8 GM INHALER INH PRN (06:35)
[2017-07-13 07:46] VITALS: BP 138/80; PULSE 95; TEMP 36.4; O2SAT 98
[2017-07-13] MEDS: DULERA: ORDER AWAITING ACTION SCH (07:47)
[2017-07-13 07:48] VITALS: O2SAT 98
[2017-07-13] MEDS: FLUTICASONE PROPIONATE NA SPR 16 GM BTL NAE SCH (07:49)
[2017-07-13] MEDS: MULTIVITAMIN TAB PO SCH (07:49)
[2017-07-13] MEDS: LOSARTAN POTASSIUM 25 MG TAB PO SCH (07:49)
[2017-07-13] MEDS: DOCUSATE SODIUM 100 MG CAP PO SCH (07:50)
[2017-07-13] MEDS: ASPIRIN 325 MG ECTAB PO SCH (07:50)
[2017-07-13] MEDS: PANTOprazole SOD 40 MG TAB PO SCH (07:50)
--- NOTE | 2017-07-13 07:50 | Anesthesiology Progress Note ---
Anesthesia Post Op Note Date & Time Jul 13, 2017 at 07:50 Vital Signs Vital Signs Past 12 Hours Date Time Temp Pulse Resp B/P (MAP) Pulse Ox O2 Delivery O2 Flow Rate FiO2 07/13/17 07:48 98 Room Air 07/13/17 07:46 36.4 95 20 138/80 (99) 98 Room Air 07/12/17 23:30 Room Air 07/12/17 23:22 36.8 89 17 144/79 (100) 95 Room Air Notes Mental Status: alert / awake / arousable, participated in evaluation Pt Amnestic to Procedure: Yes Nausea / Vomiting: adequately controlled Pain: adequately controlled Airway Patency, RR, SpO2: stable & adequate BP & HR: stable & adequate Hydration State: stable & adequate Neuraxial Anesthesia: sensory block resolved Anesthetic Complications: no major complications apparent
--- NOTE | 2017-07-13 07:58 | PROGRESS NOTE ---
DATE: 07/13/2017 SUBJECTIVE: This is a 42-year-old gentleman postop day 3 from an I&D of a left hip abscess. He is doing pretty well. The wound VAC was placed. His pain is controlled. In general he is feeling much better. OBJECTIVE: VITAL SIGNS: Temperature 36.9. Vital signs stable. GENERAL: Reveals a pleasant, middle-aged male. He is sitting up in his bedside chair and looks comfortable. EXTREMITIES: Examination of the left hip reveals the patient can walk around quite well. Wound VAC is in place. He is neurologically intact. LABORATORY DATA: White cell count improved at 15.16. Electrolytes are stable. Culture results show Staph aureus. Sensitivities are still pending. ASSESSMENT: A 42-year-old gentleman postop day 3 from I&D of a left hip abscess. He is doing pretty well. Clinically, he is significantly better. Sensitivities are still pending. PLAN: 1. DVT prophylaxis including thigh-high TEDs, SCDs, and aspirin. 2. PT and OT. Really no therapy required. He can weightbear as tolerated. 3. Antibiotic management. Infectious disease has been consulted. He is currently on Cubicin, which should cover methicillin resistant Staph. 4. Disposition: Plan to discharge to home with some home health.
[2017-07-13 09:06] VITALS: BP 116/71; PULSE 62
[2017-07-13] MEDS ORDERED: VANCOMYCIN TROUGH ONE (09:30)
[2017-07-13 10:26] VITALS: BP 116/71; PULSE 62; TEMP 36.4; O2SAT 98
--- NOTE | 2017-07-13 14:52 | Progress Note ---
Subjective Date of Service: Jul 13, 2017. Subjective Pt evaluation today including: conversation w/ patient, conversation w/ family , physical exam, chart review, lab review Voiding: no voiding problems Problem List Medical Problems: (1) Abscess of hip Status: Acute (2) Acute asthma exacerbation Status: Acute (3) Acute asthma exacerbation Status: Acute (4) Asthma Status: Acute (5) Asthma exacerbation Status: Acute (6) Asthma exacerbation Status: Acute (7) Asthma exacerbation Status: Acute (8) Bronchitis Status: Acute (9) Bronchitis Status: Acute (10) Chronic obstructive pulmonary disease Status: Acute (11) COPD exacerbation Status: Acute (12) COPD exacerbation Status: Acute (13) COPD exacerbation Status: Acute (14) COPD with acute exacerbation Status: Acute (15) Cough Status: Acute (16) Fever Status: Acute (17) Hematoma of hip Status: Acute (18) Hip pain Status: Acute (19) Nausea Status: Acute (20) Tachycardia Status: Acute Review of Systems Review of system Constitutional: No fever / no chills / no sweats / no weakness / no fatigue Eyes: no blurring of vision / no eye pain / no discharge / no redness ENT: no hearing loss / no epistaxis /no swallowing problems Respiratory: no cough / no wheezing / no SOB / no hemoptysis Cardiovascular: no Chest pain / no lower extremity edema / no palpitation Abdomen: no pain / no nausea / no vomiting / no constipation Musculoskeletal: no joint pain / no muscle pain / no joint swelling Genitourinary: no dysuria / no incontinence / no urinary retention Neurologic: no focal weakness / no numbness/tingling / no ataxia Psychiatric: no depression symptoms / no anxiety / no insomnia Endocrine: no excessive thirst / no excessive urination Hematologic: no abnormal bleeding / no bruising / no LN swelling Skin: No rash / no pallor Objective Vital Signs Date Time Temp Pulse Resp B/P (MAP) Pulse Ox O2 Delivery O2 Flow Rate FiO2 07/13/17 10:26 36.4 62 20 98 Room Air 07/13/17 09:06 62 116/71 (86) 07/13/17 07:48 98 Room Air 07/13/17 07:46 36.4 95 20 138/80 (99) 98 Room Air 07/13/17 07:45 Room Air 07/12/17 23:30 Room Air 07/12/17 23:22 36.8 89 17 144/79 (100) 95 Room Air 07/12/17 15:49 Room Air 07/12/17 15:20 36.9 99 16 166/81 (109) 96 Room Air Physical Exam Comments: Physical examination General patient appears to be comfortable, not in acute distress HEENT: Atraumatic , normocephalic /no jaundice /no pallor /anicteric /no dry mucous membrane /normal external ear inspection Neck: Supple /no swelling /central trach Heart: S1/S2 normal/regular rate and rhythm/no gallop /no rub /no murmur Lungs: Clear to auscultation bilaterally/normal chest with expansion/no rhonchi/ no rales/no wheezing/no use of accessory muscles of respiration Abdomen: Soft/nontender/no guarding/no rebound/no organomegaly/no pulsatile mass Musculoskeletal: No swelling/no edema/no tenderness/normal range of motion, there is a wound VAC on left hip, area appears to be dry and clean. Did not appreciate any hives or rash except for minimal erythema localized and improving as per family Neuro exam: Awake alert oriented 3/cranial nerves II through XII appear to be intact/sensation intact/moves all extremities/no abnormal movements Psychiatric evaluation: No depressed mood/normal affect Skin: No rash on exposed skin area/no erythema Extremity: Normal pulse/no pitting edema/no clubbing or cyanosis Endocrine/lymphatic: No obvious lymphadenopathy /no lymphedema Laboratory Results Last 24 Hours Test 07/13/17 06:01 White Blood Count 15.16 K/uL Red Blood Count 5.10 M/uL Hemoglobin 14.7 g/dL Hematocrit 45.7 % Mean Corpuscular Volume 89.6 fL Mean Corpuscular Hemoglobin 28.8 pg Mean Corpuscular Hemoglobin Concent 32.2 g/dl RDW Standard Deviation 43.5 fL RDW Coefficient of Variation 13.2 % Platelet Count 397 K/uL Mean Platelet Volume 9.0 fL Creatinine 1.05 mg/dl Est Creatinine Clear Calc Drug Dose 103.9 ml/min Estimated GFR () 99.6 Estimated GFR (Non- 85.9 Assessment and Plan 42-year-old man who was admitted to the hospital for left hip abscess, status post I&D done with Dr. Arellano procedure went uneventful. Assessment Left hip abscess status post I&D, postoperative day #3 Wound growing staph infection, infectious disease consult appreciated Patient was started on daptomycin, family had concern about slight redness at the site of incision. Examination is not worrisome for anaphylaxis or hives. Patient can be discharged and continue on daptomycin, if there is an elderly allergy involving, family instructed to bring him back to the hospital. Asthma and hypertension are controlled Patient is cleared from the medical point of view for discharge, needs to follow -up CK and 1-2 weeks Is to follow-up with infectious diseases as an outpatient
[2017-07-13] MEDS ORDERED: DAPTOmycin IV 650 MG in SYRINGE 0 ML IV SCH (15:00)
--- NOTE | 2017-07-13 15:13 | Infectious Disease Progress Nt ---
Progress Note Date of Service Jul 13, 2017. 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 No increase in pain. No fever chills. Tolerating antibiotic without apparent difficulty. All Other Systems: Reviewed and Negative Medications Current Inpatient Medications Medications (Trade) Dose Ordered Sig/Norma Route Start Time Stop Time Status Last Admin Dose Admin Oxycodone HCl (Roxicodone Immediate Rel Tab) 1-2 TABS FOR PAIN 1 TABLET ... Q4H PRN PO 07/10/17 17:15 07/24/17 17:14 07/13/17 13:19 10 MG Morphine Sulfate (MoRPHine SULFATE INJ) 2 mg Q1H PRN IV 07/10/17 17:15 07/24/17 17:14 Acetaminophen (Tylenol Tab) 1,000 mg Q8H PO 07/10/17 19:00 08/09/17 18:59 07/13/17 14:38 1,000 MG Magnesium Hydroxide (Milk Of Magnesia Susp) 30 ml Q6H PRN PO 07/10/17 17:15 08/09/17 17:14 Bisacodyl (Dulcolax Supp) 10 mg DAILY PRN AR 07/10/17 17:15 08/09/17 17:14 Senna (Senokot Tab) 17.2 mg HS PO 07/10/17 21:00 08/09/17 20:59 07/12/17 20:53 17.2 MG Docusate Sodium (coLACE CAP) 100 mg BID PO 07/10/17 21:00 08/09/17 20:59 07/13/17 07:50 100 MG Diphenhydramine HCl (Benadryl Cap) 25 mg Q8H PRN PO 07/10/17 17:15 08/09/17 17:14 Diphenhydramine HCl (Benadryl Inj) 25 mg Q8H PRN IV 07/10/17 17:15 08/09/17 17:14 Al Hydrox/Mg Hydrox/Simethicone (Maalox Max Susp) 15 ml Q4H PRN PO 07/10/17 17:15 08/09/17 17:14 Zolpidem Tartrate (Ambien Tab) 5 mg HSZ PRN PO 07/10/17 17:15 08/09/17 17:14 Multivitamins (Multivitamin Tab) 1 tab QAM PO 07/11/17 09:00 08/10/17 08:59 07/13/17 07:49 1 TAB Ondansetron HCl (Zofran Inj) 4 mg Q6H PRN IV 07/10/17 17:15 08/09/17 17:14 Metoclopramide HCl (Reglan Inj) 10 mg Q6H PRN IV 07/10/17 17:15 08/09/17 17:14 Pantoprazole Sodium (Protonix Tab) 40 mg QAM PO 07/11/17 09:00 07/15/17 08:59 07/13/17 07:50 40 MG Aspirin (Ecotrin Tab) 325 mg DAILY PO 07/11/17 09:00 08/10/17 08:59 07/13/17 07:50 325 MG Albuterol (Ventolin Hfa Inhaler) 2 puffs Q6H PRN INH 07/10/17 17:15 08/09/17 17:14 07/13/17 06:35 2 PUFFS Albuterol Sulfate (Ventolin 0.083% 2.5MG/3ML Neb) 2.5 mg Q4 PRN INH 07/10/17 17:15 08/09/17 17:14 07/11/17 09:15 2.5 MG Atorvastatin Calcium (Lipitor Tab) 10 mg HS PO 07/10/17 21:00 08/09/17 20:59 07/12/17 20:53 10 MG Fluticasone Propionate (Flonase Nasal [place]) 2 sprays QAM CARLOS 07/11/17 09:00 08/10/17 08:59 07/13/17 07:49 2 SPRAYS Losartan Potassium (coZAAR TAB) 25 mg QAM PO 07/11/17 09:00 08/10/17 08:59 07/13/17 07:49 25 MG Montelukast Sodium (Singulair Tab) 10 mg HS PO 07/10/17 21:00 08/09/17 20:59 07/12/17 20:53 10 MG Prednisone (PredniSONE TAB) 20 mg QAM PO 07/11/17 09:00 08/10/17 08:59 07/13/17 07:49 20 MG Ranitidine HCl (zANTac TAB) 150 mg HS PO 07/10/17 21:00 08/09/17 20:59 07/12/17 20:53 150 MG Miscellaneous Information (Order Awaiting Action) 1 ea QS N/A 07/11/17 00:00 08/10/17 00:00 07/11/17 08:13 1 EA Daptomycin (Consult) 1 ea UD PRN N/A 07/11/17 22:00 08/10/17 21:59 Heparin Sodium (Porcine) (Heparin 10 Unit/ ml 5 ml Flush) 5 ml PRN PRN FLUSH 07/12/17 11:30 08/11/17 11:29 07/13/17 14:42 5 ML Daptomycin 650 mg/ Syringe 13 ml @ 6.5 mls/min TODAY@1500 IV 07/13/17 15:00 07/13/17 16:00 07/13/17 14:38 6.5 MLS/MIN Objective Vital Signs Date Time Temp Pulse Resp B/P (MAP) Pulse Ox O2 Delivery O2 Flow Rate FiO2 07/13/17 10:26 36.4 62 20 98 Room Air 07/13/17 09:06 62 116/71 (86) 07/13/17 07:48 98 Room Air 07/13/17 07:46 36.4 95 20 138/80 (99) 98 Room Air 07/13/17 07:45 Room Air 07/12/17 23:30 Room Air 07/12/17 23:22 36.8 89 17 144/79 (100) 95 Room Air 07/12/17 15:49 Room Air 07/12/17 15:20 36.9 99 16 166/81 (109) 96 Room Air Physical Exam General Appearance: WD/WN, no apparent distress Eyes: normal inspection, EOMI, sclerae normal ENT: normal ENT inspection, pharynx normal Neck: supple, no adenopathy, thyroid normal, trachea midline Respiratory/Chest: chest non-tender, lungs clear, normal breath sounds, no respiratory distress Cardiovascular: regular rate, rhythm, no gallop, no murmur Abdomen: normal bowel sounds, non tender, soft, no organomegaly Extremities: non-tender, no calf tenderness Neurologic/Psychiatric: no motor/sensory deficits, alert, normal mood/affect, oriented x 3 Skin: normal color, warm/dry, no rash, + pertinent finding (Wound VAC in place left hip) Laboratory Results RUN DATE: 07/13/17 [facility] LAB PAGE 1 RUN TIME: 900 Specimen Inquiry PATIENT: JEFFREY GENTILE JR LOC: [place] U # : [id number] AGE/SX: 42/M ROOM: [facility] REG : 07/10/[address]: Carlin Arellano M.D. : 1975 BED: 1 DIS : STATUS: ADM IN TLOC: SPEC #: [id number] KWESI: 07/10/17 STATUS: RES REQ #: [id number] RECD: 07/10/[address]: Carlin Arellano M.D. SOURCE: JOINT FLSP ENTR: 07/10/[address]: Jason Zavala DO [facility]: Cornel RICHARDS Kyle D., M.D. ORDERED: AER/JOSE CULTSMR COMMENTS: CULTURE #1 Procedure Result Verified Site GRAM STAIN Final 07/10/17-1723 RESULT MANY GRAM POSITIVE COCCI IN CLUSTERS MANY WBCs SEEN MOSTLY PMNs OR AER/JOSE CULT Preliminary 07/13/17-09 Organism 1 STAPHYLOCOCCUS AUREUS QUANITY MANY SENS SENSITIVITY TO FOLLOW 1. STAPHYLOCOCCUS AUREUS Target Route Dose RX AB Cost M.I.C. IQ ------ ----- ------ -- ------ -------- - ------ TRIMET/SULFA S <=0.5/ 9.5 * OXACILLIN S 0.5 VANCOMYCIN S 2 ERYTHROMYCIN R >4 TETRACYCLINE S <=4 CLINDAMYCIN S <=0.5 DAPTOMYCIN S <=0.5 S = SENSITIVE I = INTERMEDIATE R = RESISTANT Last 24 Hours Test 07/13/17 06:01 White Blood Count 15.16 K/uL Red Blood Count 5.10 M/uL Hemoglobin 14.7 g/dL Hematocrit 45.7 % Mean Corpuscular Volume 89.6 fL Mean Corpuscular Hemoglobin 28.8 pg Mean Corpuscular Hemoglobin Concent 32.2 g/dl RDW Standard Deviation 43.5 fL RDW Coefficient of Variation 13.2 % Platelet Count 397 K/uL Mean Platelet Volume 9.0 fL Creatinine 1.05 mg/dl Est Creatinine Clear Calc Drug Dose 103.9 ml/min Estimated GFR () 99.6 Estimated GFR (Non- 85.9 Assessment and Plan Left hip abscess with Staph aureus, methicillin sensitive. Given morbid obesity and likely need for outpatient therapy, daptomycin appropriate therapy. Will likely need in the range of 2 weeks of therapy. Follow as an outpatient.
--- NOTE | 2017-07-16 07:33 | DISCHARGE SUMMARY ---
ADMITTING PHYSICIAN AND SURGEON: Carlin Arellano MD. ADMITTING DIAGNOSIS: Left hip abscess. PROCEDURE PERFORMED: Irrigation and debridement of left hip abscess, date of procedure was 07/10/2017. SECONDARY DIAGNOSES: Include asthma, hypertension, left hip heterotopic ossification and previous infection. CONSULTS: 1. Dr. Wood, infectious diseases service for antibiotic treatment. 2. Wound care for wound VAC placement. 3. Dr. Hester for medical management. 4. Dr. Jason Zavala, pulmonology for history of asthma. HISTORY AND PHYSICAL EXAMINATION: Well documented in the patient's chart. HOSPITAL COURSE: The patient was admitted on 07/10/2017 with left hip pain and a hip abscess. We attempted aspiration in the Emergency Room and also ultrasound guidance with interventional radiology. These attempts were unsuccessful. He was then taken to the operating room, underwent an I&D of the left hip abscess. He tolerated this procedure well. There were no complications. He was transferred to the PACU postoperatively and later to the orthopedic floor for further care. He did have intraoperative cultures obtained which showed a methicillin-sensitive Staph aureus. His hemoglobin, hematocrit and vital signs were monitored during his hospital stay and remained stable. He did have an elevated white blood cell count on admission at 25.49. This decreased to 15.16 prior to discharge. He was tachycardic on admission as well and this improved as well after the procedure throughout his hospital stay and did not require any blood transfusions. The pulmonology service and hospitalist service were consulted during his hospital stay. Infectious disease was also consulted and with further antibiotic recommendations. Wound care was consulted for placement of a wound VAC. There were no complications during his hospital stay. By postoperative day 3, he was tolerating a regular diet, pain was controlled with oral pain medicine. On postoperative day 3, he was discharged home, set up with home health services, he was given new prescriptions for extra strength Tylenol, aspirin and tramadol. Continue his home medications. He was set up with home health services for wound VAC changes and follow up with wound care per the wound care services. He can continue weightbearing as tolerated. He was placed on IV antibiotics, specifically daptomycin and was recommended he continue this for 2 additional weeks and will follow up with Dr. Arellano about 2 weeks or sooner if there are any problems or concerns.
== END 2017-07-13 15:51 | disposition home health service (06) | DRG 550 ==
LOC: C.EDB 06:34 → C.3E 17:15 → ENRESERV 17:41
PROVIDERS: ADMIT Orthopaedic Surgery Sports Medicine; ATTEND Orthopaedic Surgery Sports Medicine
PROC: 0S9B3ZX Drainage of Left Hip Joint, Percutaneous Approach, Diagnostic (ICD-10-PCS; 2017-07-10)
PROC: 0JCC0ZZ Extirpation of Matter from Pelvic Region Subcutaneous Tissue and Fascia, Open Approach (ICD-10-PCS; principal; 2017-07-10 09:45)
PROC: 02HV33Z Insertion of Infusion Device into Superior Vena Cava, Percutaneous Approach (ICD-10-PCS; 2017-07-12)
DX: M00.852 Arthritis due to other bacteria, left hip (principal); J45.909 Unspecified asthma, uncomplicated; I10 Essential (primary) hypertension; Z82.49 Family history of ischemic heart disease and other diseases of the circulatory system; Z83.3 Family history of diabetes mellitus; Z88.0 Allergy status to penicillin; Z88.1 Allergy status to other antibiotic agents; R11.0 Nausea; B95.61 Methicillin susceptible Staphylococcus aureus infection as the cause of diseases classified elsewhere; E66.01 Morbid (severe) obesity due to excess calories; Z68.38 Body mass index [BMI] 38.0-38.9, adult

== ENCOUNTER → 2017-07-27 | Outpatient (CLI) | payer OTHER ==
[~2017-07-27] MED LIST changes: +ACET-24 PO; +ALBINS/ INH; +ASPEC325 PO; +ATOR10TA82 PO; +ATRINSX NEB; -AZIT-60 PO; +ERTA1INJ IV; +FLUT0.15 NAE; +INDO-22 PO; +LOSA1TAB PO; +MOME200A INH; +MONT1TAB3 PO; -OXYC1TAB3 PO; +PRED20TA PO; -PRED50TA PO; +PRLSR20 PO; +RANI150T3 PO; +SULF800T23 PO; +TRAM-10 PO
[2017-07-27 12:49] LABS: HEMATOCRIT 44.6 % (42-52); HEMOGLOBIN 15.1 g/dL (14.0-18.0); MEAN CELL VOLUME 85.9 fL (80-100); MEAN CORPUSCULAR HEMOGLOBIN 29.1 pg (25-34); MEAN CORPUSCULAR HGB CONC 33.9 g/dl (32-36); MEAN PLATELET VOLUME 9.5 fL (7.4-10.4); PLATELET COUNT 458 K/uL (130-400); RED CELL DISTRIBUTION WIDTH CV 13.2 % (11.5-14.5); RED CELL DISTRIBUTION WIDTH SD 41.5 fL (36.4-46.3); WHITE BLOOD COUNT 16.42 K/uL (4.8-10.8)
[2017-07-27 15:55] LABS: ALBUMIN 3.5 gm/dl (3.4-5.0); ALT/SGPT 68 U/L (12-78); AST/SGOT 34 U/L (15-37); BLOOD UREA NITROGEN 30 mg/dl (7-18); CALCIUM 9.1 mg/dl (8.5-10.1); CARBON DIOXIDE 25 mmol/L (21-32); CREATININE 0.86 mg/dl (0.60-1.40); GLUCOSE 111 mg/dl (70-99); POTASSIUM 4.5 mmol/L (3.5-5.1); SODIUM 136 mmol/L (136-145)
[2017-07-27 15:58] LABS: ALKALINE PHOSPHATASE 83 U/L (45-117); TOTAL PROTEIN 6.9 gm/dl (6.4-8.2)
== END | disposition home or self-care (01) ==
LOC: C.LABBFT 10:17
PROVIDERS: ATTEND Internal Medicine Infectious Disease
DX: A49.01 Methicillin susceptible Staphylococcus aureus infection, unspecified site (principal)

== ENCOUNTER 2017-12-01 13:33 | Emergency (ER) | payer OTHER ==
[~2017-12-01] VITALS: Ht 167.6 cm; Wt 98.4 kg
[~2017-12-01 13:33] MED LIST changes: -ERTA1INJ IV; +OXYC-737 PO; -TRAM-10 PO
[2017-12-01 13:38] VITALS: TEMP 36.4
[2017-12-01] MEDS ORDERED: ONDANSETRON INJ 2 MG/ML 2 ML VIAL IV STA (13:51)
[2017-12-01] MEDS ORDERED: SODIUM CHLORIDE 0.9% 1000ML 1,000 ML IV STA (13:51)
[2017-12-01] MEDS ORDERED: METHYLPREDNISOLONE 125 MG VIAL IV STA (13:51)
--- NOTE | 2017-12-01 13:54 | EMERGENCY ROOM VISIT NOTE ---
History Report prepared by Junior: Enma Pastor Under the Supervision of: Dr. Pb Anthony D.O. First contact with patient: 13:41 Chief Complaint: RESPIRATORY PROBLEMS Stated Complaint: ASTHMA Nursing Triage Summary: triage note: pt reports increased shortness of breath over the past several days. pt reports using breathing tx at home with no relief. 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 He notes that he has been outside often and yesterday he had increased SOB. He states he is nauseous and lightheaded but denies any chest pain or vomiting. 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 The patient is not on any blood thinners and his PCP is Dr. Zavala, [facility]. 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 Review of Systems See HPI for pertinent positives & negatives. A total of 10 systems reviewed and were otherwise negative. Past Medical & Surgical Medical Problems: (1) Asthma, Unspecified (2) Hip hematoma, left (3) Hypertension Nos (4) Left Hip Abscess (5) Left HIp Hematoma (6) Left Hip Heterotopic Ossification Family History Cancer Diabetes mellitus Gallbladder disease Heart disease Hypertension Kidney disease Kidney stones Lung disease Seizures Social History Smoking Status: Never Smoker Alcohol Use: occasionally Drug Use: none Marital Status: , Housing Status: lives with family Occupation Status: employed Current/Historical Medications Scheduled Acetaminophen (Sb Non-Aspirin Extra Stre), 1,000 MG PO Q8H Aspirin (Aspirin), 325 MG PO DAILY Fluticasone Propionate (Nasal) (Flonase Allergy Relief), 2 SPRAYS CARLOS QAM Indomethacin (Indocin), 25 MG PO TID Losartan Potassium (Cozaar), 25 MG PO QAM Mometasone Furoate-Formoterol (Dulera 200/5 Mcg), 2 PUFFS INH BID Montelukast Sodium (Singulair), 10 MG PO HS Omeprazole (Prilosec), 20 MG PO QAM Prednisone (Prednisone), 20 MG PO QAM Prednisone (Prednisone Tab), 40 MG PO DAILY Ranitidine Hcl (Zantac), 150 MG PO HS Scheduled PRN Albuterol Hfa (Ventolin Hfa), 2 PUFFS INH Q6H PRN for SOB/Wheezing Albuterol Sulf (Proventil 0.083% 2.5MG/3ML), 2.5 MG INH Q4 PRN for Shortness of Breath Ipratropium Cameron (Atrovent 0.02% Soln), 1 DOSE NEB QID PRN for SOB/Wheezing Allergies Coded Allergies: Amoxicillin (Verified Allergy, Intermediate, HIVES/RASH, 12/01/17) Daptomycin (Verified Allergy, Intermediate, RASH, 12/01/17) Penicillins (Verified Allergy, Intermediate, RXN TO AMOXICILLIN (SEVERE RASH), 12/01/17) SEVERE RASH Physical Exam Vital Signs Date Time Temp Pulse Resp B/P (MAP) Pulse Ox O2 Delivery O2 Flow Rate FiO2 12/01/17 16:55 133/94 95 12/01/17 16:30 142/93 12/01/17 16:27 84 28 94 Room Air 12/01/17 16:00 147/84 12/01/17 15:57 82 20 95 12/01/17 15:30 154/104 12/01/17 15:27 92 16 99 12/01/17 15:01 147/96 12/01/17 14:57 72 19 100 12/01/17 14:45 78 20 150/94 99 Room Air 12/01/17 14:21 94 Room Air 12/01/17 14:18 85 18 96 Room Air 12/01/17 14:17 94 Room Air 12/01/17 14:16 94 12/01/17 13:38 36.4 94 26 150/86 95 Room Air Physical Exam GENERAL: Patient is awake, alert, and in no acute distress. Patient mildly anxious appearing but comfortable EYES: The conjunctivae are clear. The pupils are round and reactive. EARS, NOSE, MOUTH AND THROAT: The nose is without any evidence of any deformity. Mucous membranes are moist. Tongue is midline NECK: The neck is nontender and supple. RESPIRATORY: There is no evidence of wheezing rhonchi or rales to auscultation. Lung sounds were diminished throughout with wheezing in all lung fisher. Mild tachypnea but no mild conversational dyspnea appreciated. CARDIOVASCULAR: Regular rate and rhythm noted. There no murmurs rubs or gallops normal S1 normal S2 GASTROINTESTINAL: The abdomen is soft. Bowel sounds are present in all quadrants. Abdomen is nontender. MUSCULOSKELETAL/EXTREMITIES: There is no evidence of gross deformity. Full range of motion is noted in the hips and shoulders. SKIN: There is no obvious evidence of any rash. There are no petechiae, pallor or cyanosis noted. NEUROLOGIC: Patient is awake alert and oriented x3. Strength is symmetric. Patellar reflexes are 2+ bilaterally. Medical Decision & Procedures ER Provider Diagnostic Interpretation: Radiology results as stated below per my review and radiologist interpretation: SINGLE VIEW CHEST CLINICAL HISTORY: Dyspnea. FINDINGS: An AP, portable, upright chest radiograph is compared to study dated 07/07/2017. Correlation is made with chest CT dated 10/25/2014. The examination is degraded by portable technique and apical lordotic positioning. The cardiomediastinal silhouette is unremarkable. The lungs and pleural spaces are clear. No pneumothorax is seen. The bony thorax is grossly intact. IMPRESSION: No acute cardiopulmonary abnormality. Electronically signed by: Andre Blake M.D. 12/01/2017 2:29 PM Laboratory Results 12/01/17 14:12 Red Blood Count 5.72, Mean Corpuscular Volume 85.0, Mean Corpuscular Hemoglobin 29.0, Mean Corpuscular Hemoglobin Concent 34.2, Mean Platelet Volume 9.4, Neutrophils (%) (Auto) 75.8, Lymphocytes (%) (Auto) 13.4, Monocytes (%) (Auto) 8.4, Eosinophils (%) (Auto) 1.3, Basophils (%) (Auto) 0.3, Neutrophils # (Auto) 9.30, Lymphocytes # (Auto) 1.65, Monocytes # (Auto) 1.03, Eosinophils # (Auto) 0.16, Basophils # (Auto) 0.04 12/01/17 14:12 Test 12/01/17 14:12 White Blood Count 12.28 K/uL (4.8-10.8) Red Blood Count 5.72 M/uL (4.7-6.1) Hemoglobin 16.6 g/dL (14.0-18.0) Hematocrit 48.6 % (42-52) Mean Corpuscular Volume 85.0 fL (80-100) Mean Corpuscular Hemoglobin 29.0 pg (25-34) Mean Corpuscular Hemoglobin Concent 34.2 g/dl (32-36) Platelet Count 358 K/uL (130-400) Mean Platelet Volume 9.4 fL (7.4-10.4) Neutrophils (%) (Auto) 75.8 % Lymphocytes (%) (Auto) 13.4 % Monocytes (%) (Auto) 8.4 % Eosinophils (%) (Auto) 1.3 % Basophils (%) (Auto) 0.3 % Neutrophils # (Auto) 9.30 K/uL (1.4-6.5) Lymphocytes # (Auto) 1.65 K/uL (1.2-3.4) Monocytes # (Auto) 1.03 K/uL (0.11-0.59) Eosinophils # (Auto) 0.16 K/uL (0-0.5) Basophils # (Auto) 0.04 K/uL (0-0.2) RDW Standard Deviation 41.4 fL (36.4-46.3) RDW Coefficient of Variation 13.3 % (11.5-14.5) Immature Granulocyte % (Auto) 0.8 % Immature Granulocyte # (Auto) 0.10 K/uL (0.00-0.02) Prothrombin Time 10.3 SECONDS (9.0-12.0) Prothromb Time International Ratio 1.0 (0.9-1.1) Activated Partial Thromboplast Time 25.0 SECONDS (21.0-31.0) Partial Thromboplastin Ratio 1.0 Anion Gap 9.0 mmol/L (3-11) Est Creatinine Clear Calc Drug Dose 93.2 ml/min Estimated GFR () 93.1 Estimated GFR (Non- 80.3 BUN/Creatinine Ratio 23.4 (10-20) Calcium Level 8.5 mg/dl (8.5-10.1) Total Bilirubin 0.3 mg/dl (0.2-1) Aspartate Amino Transf (AST/SGOT) 33 U/L (15-37) Alanine Aminotransferase (ALT/SGPT) 55 U/L (12-78) Alkaline Phosphatase 67 U/L (45-117) Troponin I < 0.015 ng/ml (0-0.045) Total Protein 6.7 gm/dl (6.4-8.2) Albumin 3.5 gm/dl (3.4-5.0) Globulin 3.2 gm/dl (2.5-4.0) Albumin/Globulin Ratio 1.1 (0.9-2) Laboratory results per my review. Medications Administered Medications (Trade) Dose Ordered Sig/Norma Route Start Time Stop Time Status Last Admin Dose Admin Sodium Chloride 1,000 ml @ 999 mls/hr Q1H1M STAT IV 12/01/17 13:51 12/01/17 14:51 DC 12/01/17 13:51 999 MLS/HR Ondansetron HCl (Zofran Inj) 4 mg NOW STAT IV 12/01/17 13:51 12/01/17 13:53 DC 12/01/17 14:11 4 MG Methylprednisolone Sodium Succinate (Solu-Medrol IV) 125 mg NOW STAT IV 12/01/17 13:51 12/01/17 13:53 DC 12/01/17 14:11 125 MG Albuterol/ Ipratropium (Duoneb) 12 ml ONE ONCE INH 12/01/17 14:00 12/01/17 14:01 DC 12/01/17 14:18 12 ML ECG Per My Interpretation Indication: SOB/dyspnea Rate (beats per minute): 88 Rhythm: normal sinus Findings: no ectopy, other (diffuse ST segment abnormalities noted, no reciprocal changes noted ) Comparison ECG Date: 07/10/17 Change: no significant change ED Course 1349: The patient was evaluated in room C11. A complete history and physical examination were performed. 1351: Ordered Solu-Medrol IV 125 mg IV, Zofran Inj 4 mg IV, NSS 1,000 ml @ 999 mls/hr IV 1400: Ordered Duoneb 12 ml INH 1518: I checked on the patient at this time. He sounds much better. Patient moving air much better. Wheezing is decreased significantly. 1615: Upon reevaluation, the patient is feeling improved. I discussed the results and treatment plan with him. He verbalized agreement of the treatment plan. He was discharged home. Medical Decision Prior records/ancillary studies reviewed. Triage Nursing notes reviewed. Differential diagnosis: Etiologies such as infections, reactive airway disease, pneumonia, pneumothorax , COPD, CHF, cardiac ischemia, pulmonary embolism, musculoskeletal, gastrointestinal, as well as others were entertained. The patient is a 42-year-old male who presented to the emergency department for shortness of breath. The patient has a history of asthma. I am familiar with this gentleman and I have taken care of him in the past. His presentation today appear to be consistent with a very significant exacerbation of his asthma. He has had worsening symptoms over the last few days but things became worse today. He tried his outpatient medications. He normally takes steroids every day but does not have his prescription filled at this time. He was treated with steroids as well as bronchodilator therapy in the emergency department. He was reevaluated multiple times. I discussed patient's laboratory and radiographic studies with him. On subsequent reevaluation he was feeling much better and his condition had improved significantly. He was encouraged to rest and avoid any strenuous activity. He is also encouraged to continue all medications as prescribed. I did recommend that he try to stay out of the heat and follow-up with his primary care physician as soon as possible but also come to the emergency department immediately if symptoms change worsen or the need arises. Medication Reconcilliation Current Medication List: was personally reviewed by me Blood Pressure Screening Patient's blood pressure: Elevated blood pressure Blood pressure disposition: Referred to PCP Impression Primary Impression: SOB (shortness of breath) Additional Impression: Acute asthma exacerbation Scribe Attestation The scribe's documentation has been prepared under my direction and personally reviewed by me in its entirety. I confirm that the note above accurately reflects all work, treatment, procedures, and medical decision making performed by me. Departure Information Dispostion Home / Self-Care Prescriptions Prednisone (Prednisone Tab) 20 Mg Tab 40 MG PO DAILY, #10 TAB Prov: Pb Anthony DO 12/01/17 Referrals Jason Zavala DO (PCP) Forms HOME CARE DOCUMENTATION FORM, IMPORTANT VISIT INFORMATION, WORK / SCHOOL INSTRUCTIONS Patient Instructions [facility] Additional Instructions Continue all medications as prescribed. Rest and avoid any strenuous activity. Drink plenty clear liquids. Call your primary care physician to schedule a follow-up appointment. Return to the emergency department immediately if symptoms change worsen or the need arises. Try to stay out of the heat as much as possible. Problem Qualifiers Additional Impression: Acute asthma exacerbation Asthma severity: moderate Asthma persistence: unspecified Qualified Codes: J45.901 - Unspecified asthma with (acute) exacerbation
[2017-12-01] MEDS ORDERED: ALBUT/IPRATROP 3MG/0.5MG NEB 3 ML VIAL INH ONE (14:00)
[2017-12-01 14:18] VITALS: PULSE 85; O2SAT 96
[2017-12-01 14:21] VITALS: O2SAT 94; Ht 167.6 cm; Wt 98.4 kg
[2017-12-01 14:23] LABS: BASO % 0.3 %; BASO ABS # 0.04 K/uL (0-0.2); EOS % 1.3 %; EOS ABS # 0.16 K/uL (0-0.5); HEMATOCRIT 48.6 % (42-52); HEMOGLOBIN 16.6 g/dL (14.0-18.0); LYMPH % 13.4 %; LYMPH ABS # 1.65 K/uL (1.2-3.4); MEAN CORPUSCULAR HGB CONC 34.2 g/dl (32-36); MEAN PLATELET VOLUME 9.4 fL (7.4-10.4); MONO % 8.4 %; MONO ABS # 1.03 K/uL (0.11-0.59); NEUT % 75.8 %; PLATELET COUNT 358 K/uL (130-400); RED CELL DISTRIBUTION WIDTH CV 13.3 % (11.5-14.5); RED CELL DISTRIBUTION WIDTH SD 41.4 fL (36.4-46.3); WHITE BLOOD COUNT 12.28 K/uL (4.8-10.8)
--- NOTE | 2017-12-01 14:30 | DIAGNOSTIC IMAGING REPORT ---
SINGLE VIEW CHEST CLINICAL HISTORY: Dyspnea. FINDINGS: An AP, portable, upright chest radiograph is compared to study dated 07/07/2017. Correlation is made with chest CT dated 10/25/2014. The examination is degraded by portable technique and apical lordotic positioning. The cardiomediastinal silhouette is unremarkable. The lungs and pleural spaces are clear. No pneumothorax is seen. The bony thorax is grossly intact. IMPRESSION: No acute cardiopulmonary abnormality. Electronically signed by: Andre Blake M.D. 12/01/2017 2:29 PM Dictated Date/Time: 12/01/2017 2:28 PM
[2017-12-01 14:41] LABS: ALBUMIN 3.5 gm/dl (3.4-5.0); ALKALINE PHOSPHATASE 67 U/L (45-117); ALT/SGPT 55 U/L (12-78); AST/SGOT 33 U/L (15-37); BLOOD UREA NITROGEN 26 mg/dl (7-18); CALCIUM 8.5 mg/dl (8.5-10.1); CARBON DIOXIDE 25 mmol/L (21-32); CREATININE 1.11 mg/dl (0.60-1.40); GLUCOSE 99 mg/dl (70-99); POTASSIUM 4.2 mmol/L (3.5-5.1); SODIUM 139 mmol/L (136-145); TOTAL PROTEIN 6.7 gm/dl (6.4-8.2)
[2017-12-01] MEDS ORDERED: PRED20TA2 PO (16:12)
[2017-12-01 16:27] VITALS: PULSE 84
[2017-12-01 16:55] VITALS: BP 133/94; O2SAT 95
== END 2017-12-01 16:55 | disposition home or self-care (01) ==
LOC: C.EDB 13:35 → C.EDC 16:55
DX: R06.02 Shortness of breath (principal); J45.901 Unspecified asthma with (acute) exacerbation; I10 Essential (primary) hypertension; Z79.82 Long term (current) use of aspirin; Z88.1 Allergy status to other antibiotic agents; Z88.8 Allergy status to other drugs, medicaments and biological substances; Z88.0 Allergy status to penicillin

== ENCOUNTER 2017-12-17 13:54 | Emergency (ER) | payer OTHER ==
[~2017-12-17] VITALS: Ht 167.6 cm; Wt 101.2 kg
[~2017-12-17 13:54] MED LIST changes: -ATOR10TA82 PO; -OXYC-737 PO; +PRED20TA2 PO; -SULF800T23 PO
[2017-12-17 13:59] VITALS: TEMP 36.7
[2017-12-17] MEDS ORDERED: ALBUT/IPRATROP 3MG/0.5MG NEB 3 ML VIAL INH STA (15:07)
[2017-12-17] MEDS ORDERED: METHYLPREDNISOLONE 125 MG VIAL IV STA (15:07)
[2017-12-17 15:28] VITALS: O2SAT 95; Ht 167.6 cm; Wt 101.2 kg
--- NOTE | 2017-12-17 15:33 | EMERGENCY ROOM VISIT NOTE ---
History Report prepared by Junior: Maggie Chavira Under the Supervision of: Dr. Alexander Rodrigez M.D. First contact with patient: 15:02 Chief Complaint: RESPIRATORY PROBLEMS Stated Complaint: BREATHING ASTHMA History of Present Illness The patient is a 42 year old white male with a past medical history of asthma and HTN who presents to the ED with a cc of intermittent wheezing beginning 4 days ago. He notes the wheezing worsens with exertion, and is improved by his nebulizer, but only for a short time. He notes the recent weather changes may be exacerbating his asthma, and denies exposure to any irritants. The patient reports he has had an intermittent productive cough, producing yellow phlegm. He notes some SOB and denies abdominal pain. He notes he takes a daily low dose of steroids, and his last burst of steroids was 2 weeks ago, which relieved his wheezing for a short time. The patient is a nonsmoker and denies a history of blood clots. Source of History: patient Onset: 4 days ago Position: chest Quality: other (wheezing) Timing: intermittent Associated Symptoms: + cough (productive), + SOB, No abdominal pain Review of Systems See HPI for pertinent positives and negatives. A total of ten systems were reviewed and were otherwise negative. Past Medical & Surgical Medical Problems: (1) Asthma, Unspecified (2) Hip hematoma, left (3) Hypertension Nos (4) Left Hip Abscess (5) Left HIp Hematoma (6) Left Hip Heterotopic Ossification Family History Cancer Diabetes mellitus Gallbladder disease Heart disease Hypertension Kidney disease Kidney stones Lung disease Seizures Social History Smoking Status: Never Smoker Alcohol Use: occasionally Drug Use: none Marital Status: , Housing Status: lives with family Occupation Status: employed Current/Historical Medications Scheduled Acetaminophen (Sb Non-Aspirin Extra Stre), 1,000 MG PO Q8H Aspirin (Aspirin), 325 MG PO DAILY Fluticasone Propionate (Nasal) (Flonase Allergy Relief), 2 SPRAYS CARLOS QAM Losartan Potassium (Cozaar), 25 MG PO QAM Mometasone Furoate-Formoterol (Dulera 200/5 Mcg), 2 PUFFS INH BID Montelukast Sodium (Singulair), 10 MG PO HS Omeprazole (Prilosec), 20 MG PO QAM Prednisone (Prednisone Tab), 40 MG PO DAILY Prednisone (Prednisone), 50 MG PO DAILY Ranitidine Hcl (Zantac), 150 MG PO HS Scheduled PRN Albuterol Hfa (Ventolin Hfa), 2 PUFFS INH Q6H PRN for SOB/Wheezing Albuterol Sulf (Proventil 0.083% 2.5MG/3ML), 2.5 MG INH Q4 PRN for Shortness of Breath Ipratropium [place] (Atrovent 0.02% Soln), 1 DOSE NEB QID PRN for SOB/Wheezing Allergies Coded Allergies: Amoxicillin (Verified Allergy, Intermediate, HIVES/RASH, 12/17/17) Daptomycin (Verified Allergy, Intermediate, RASH, 12/17/17) Penicillins (Verified Allergy, Intermediate, RXN TO AMOXICILLIN (SEVERE RASH), 12/17/17) SEVERE RASH Physical Exam Vital Signs Date Time Temp Pulse Resp B/P (MAP) Pulse Ox O2 Delivery O2 Flow Rate FiO2 12/17/17 17:28 66 18 151/103 98 12/17/17 16:09 94 12/17/17 15:59 99 24 149/102 95 Room Air 12/17/17 15:28 95 Room Air 12/17/17 14:02 94 Room Air 12/17/17 13:59 36.7 102 20 164/104 95 Physical Exam GENERAL: Awake, alert, well-appearing, NAD, obese HENT: Normocephalic, atraumatic. EYES: Normal conjunctiva. Sclera non-icteric. PERRL. No anisocoria. NECK: Supple. No nuchal rigidity. FROM. RESPIRATORY: No rhonchi, no crackles. Prolonged expiratory phase, expiratory wheezing throughout CARDIAC: RRR, no MRG ABDOMEN: Soft, NTND, BS+ MSK: No chest wall TTP, no LE edema, no calf pain NEURO: GCS 15, CN 2-12 intact, moves all 4s on command SKIN: No rash or jaundice noted. Medical Decision & Procedures ER Provider Diagnostic Interpretation: Radiology results as stated below per my review and radiologist interpretation: CHEST 2 VIEWS ROUTINE CLINICAL HISTORY: Respiratory distress COMPARISON STUDY: December 01, 2017 FINDINGS: The heart is mildly enlarged. There is no failure. There is no focal pulmonary consolidation. There are no pleural effusions. Postsurgical changes are present within the lower thoracic spine. Vague opacities within the axillary portions of both upper lung zones are felt to be artifactual due to overlying soft tissue. IMPRESSION: No active disease in the chest. Electronically signed by: Garland Medina M.D. 12/17/2017 4:03 PM Dictated Date/Time: 12/17/2017 4:02 PM Laboratory Results 12/17/17 15:20 Red Blood Count 5.38, Mean Corpuscular Volume 83.1, Mean Corpuscular Hemoglobin 29.0, Mean Corpuscular Hemoglobin Concent 34.9, Mean Platelet Volume 9.6, Neutrophils (%) (Auto) 89.1, Lymphocytes (%) (Auto) 5.2, Monocytes (%) (Auto) 3.2, Eosinophils (%) (Auto) 0.8, Basophils (%) (Auto) 0.2, Neutrophils # (Auto) 14.27, Lymphocytes # (Auto) 0.84, Monocytes # (Auto) 0.51, Eosinophils # (Auto) 0.13, Basophils # (Auto) 0.04 12/17/17 15:20 Test 12/17/17 15:20 White Blood Count 16.03 K/uL (4.8-10.8) Red Blood Count 5.38 M/uL (4.7-6.1) Hemoglobin 15.6 g/dL (14.0-18.0) Hematocrit 44.7 % (42-52) Mean Corpuscular Volume 83.1 fL (80-100) Mean Corpuscular Hemoglobin 29.0 pg (25-34) Mean Corpuscular Hemoglobin Concent 34.9 g/dl (32-36) Platelet Count 324 K/uL (130-400) Mean Platelet Volume 9.6 fL (7.4-10.4) Neutrophils (%) (Auto) 89.1 % Lymphocytes (%) (Auto) 5.2 % Monocytes (%) (Auto) 3.2 % Eosinophils (%) (Auto) 0.8 % Basophils (%) (Auto) 0.2 % Neutrophils # (Auto) 14.27 K/uL (1.4-6.5) Lymphocytes # (Auto) 0.84 K/uL (1.2-3.4) Monocytes # (Auto) 0.51 K/uL (0.11-0.59) Eosinophils # (Auto) 0.13 K/uL (0-0.5) Basophils # (Auto) 0.04 K/uL (0-0.2) RDW Standard Deviation 40.9 fL (36.4-46.3) RDW Coefficient of Variation 13.5 % (11.5-14.5) Immature Granulocyte % (Auto) 1.5 % Immature Granulocyte # (Auto) 0.24 K/uL (0.00-0.02) Anion Gap 10.0 mmol/L (3-11) Est Creatinine Clear Calc Drug Dose 109.4 ml/min Estimated GFR () 111.0 Estimated GFR (Non- 95.7 BUN/Creatinine Ratio 26.3 (10-20) Calcium Level 8.8 mg/dl (8.5-10.1) Troponin I < 0.015 ng/ml (0-0.045) Laboratory results reviewed by me Medications Administered Medications (Trade) Dose Ordered Sig/Norma Route Start Time Stop Time Status Last Admin Dose Admin Albuterol/ Ipratropium (Duoneb) 6 ml NOW STAT INH 12/17/17 15:07 12/17/17 15:10 DC 12/17/17 15:31 6 ML Methylprednisolone Sodium Succinate (Solu-Medrol IV) 125 mg NOW STAT IV 12/17/17 15:07 12/17/17 15:10 DC 12/17/17 15:31 125 MG ECG Per My Interpretation Indication: SOB/dyspnea Rate (beats per minute): 90 Rhythm: normal sinus Findings: ST elevation (Lateral, inferior), other (normal intervals. normal axis. likely begining early repolarization. ) ED Course 1504: The patient was evaluated in room B3B. A complete history and physical exam was performed. 1618: I reevaluated the patient. Discussed results and discharge instructions: he verbalized understanding and agreement. The patient is ready for discharge. Medical Decision Nursing notes reviewed. Ancillary studies and prior records reviewed. The patient is a 42 year old white male with a past medical history of asthma and HTN who presents to the ED with a cc of intermittent wheezing beginning 4 days ago. Differential diagnosis: Etiologies such as infections, reactive airway disease, pneumonia, pneumothorax , COPD, CHF, cardiac ischemia, pulmonary embolism, musculoskeletal, gastrointestinal, as well as others were entertained. Patient was seen and evaluated the bedside. The patient does have a known history of asthma and the patient feels as though he is has not having an exacerbation. The patient is a non-smoker. Patient does have some chest pains with coughing but no other chest pains. No exertional symptoms nausea vomiting. Patient has been using his neb laser treatments. Patient does take low-dose prednisone chronically. Patient was last on a burst of steroids present 2 weeks prior. Patient does have some trace expiratory wheezing on exam. The patient is not tachypneic. The patient is also not hypoxic. Borderline tachycardia but the patient is recently taking nebs. Prior history of DVT or PE. PE RC of 1, low risk Wells score, less likely PE. No calf pain or swelling. Do not believe the patient is volume overloaded suffering from heart kidney or liver failure. Patient did a blood work completed, EKG, chest x-ray. Patient is a mild white count 16,000. Troponins negative. Patient does have an elevated BUN/ creatinine ratio which may be significant for prerenal or dehydration. Given the patient's chest rate x-ray is clear and white blood cell count is likely chronically elevated given the patient's chronic history of steroid use will not treat with antibiotics at this time. The patient is feeling improved. The patient is non-stridulous and without wheezing at this time. Patient was given a short course of steroids and was told to follow-up as an outpatient as well as return as needed. Patient was given strict follow-up, discharge, and return precautions. All questions were answered. Patient was deemed suitable for outpatient follow-up at this time. Patient agreed with the plan of care and was safely discharged home. Medication Reconcilliation Current Medication List: was personally reviewed by me Blood Pressure Screening Patient's blood pressure: Elevated blood pressure Blood pressure disposition: Referred to PCP Impression Primary Impression: Asthma exacerbation Scribe Attestation The scribe's documentation has been prepared under my direction and personally reviewed by me in its entirety. I confirm that the note above accurately reflects all work, treatment, procedures, and medical decision making performed by me. Departure Information Dispostion Home / Self-Care Prescriptions Prednisone (PREDNISONE) 50 Mg Tab 50 MG PO DAILY for 4 Days, #44 TAB Prov: Alexander Rodrigez M.D. 12/17/17 Referrals Jason Zavala DO (PCP) Forms HOME CARE DOCUMENTATION FORM, IMPORTANT VISIT INFORMATION, WORK / SCHOOL INSTRUCTIONS Patient Instructions Asthma - [facility], [facility] Additional Instructions Please return to the emergency department if you have worsening or recurrent symptoms not amenable to at-home treatment. Please call for a follow-up appointment with her primary care physician. Please take your medications as prescribed. If you have other concerns and/or complaints please feel free to also call your primary care physician's office or return the ED for further evaluation, management, and treatment. You were found to have an elevated blood pressure today (>120 sytolic or >90 diastolic). Per medicare guidelines, you need to follow up with this blood pressure screening with your Primary Care Physician (PCP). For a new PCP call [phone]. You received narcotic or benzodiazepene medication while in the emergency room today. This is an addictive medication that may cause drowziness as well as constipation. Do not drive, operate heavy machinery, or drink alcohol under the influence of this medication. You may take tylenol 650 mg every 6 hours as needed for pain/fever unless told by your physician to not take it or have liver problems. Take your medications as prescribed. Please take your steroids preferably in the morning and with food as they may cause some upset stomach and cause you to be very awake and alert. Please do not take your chronic steroids while you take the steroid burst over the next 4 days. Please consider using Nexium or Zantac to help with any GI upset or gastritis while taking steroids. You have been examined and treated today on an emergency basis only. This is not a substitute for, or an effort to provide, complete comprehensive medical care. It is impossible to recognize and treat all injuries or illnesses in a single emergency department visit. It is therefore important that you follow up closely with [facility], your PCP, and/or your specialist(s). Call as soon as possible for an appointment. Thank you for your time and consideration. I look forward to speaking with you again soon. Please don't hesitate to call us if you have any questions. Problem Qualifiers Primary Impression: Asthma exacerbation Asthma severity: mild Asthma persistence: intermittent Qualified Codes: J45.21 - Mild intermittent asthma with (acute) exacerbation
[2017-12-17 15:36] LABS: BASO % 0.2 %; BASO ABS # 0.04 K/uL (0-0.2); EOS % 0.8 %; EOS ABS # 0.13 K/uL (0-0.5); HEMATOCRIT 44.7 % (42-52); HEMOGLOBIN 15.6 g/dL (14.0-18.0); IG# 0.24 K/uL (0.00-0.02); LYMPH % 5.2 %; LYMPH ABS # 0.84 K/uL (1.2-3.4); MEAN CELL VOLUME 83.1 fL (80-100); MEAN CORPUSCULAR HGB CONC 34.9 g/dl (32-36); MEAN PLATELET VOLUME 9.6 fL (7.4-10.4); MONO % 3.2 %; MONO ABS # 0.51 K/uL (0.11-0.59); NEUT % 89.1 %; NEUT ABS # 14.27 K/uL (1.4-6.5); PLATELET COUNT 324 K/uL (130-400); RED CELL DISTRIBUTION WIDTH CV 13.5 % (11.5-14.5); RED CELL DISTRIBUTION WIDTH SD 40.9 fL (36.4-46.3); WHITE BLOOD COUNT 16.03 K/uL (4.8-10.8)
[2017-12-17 15:57] LABS: BLOOD UREA NITROGEN 25 mg/dl (7-18); CALCIUM 8.8 mg/dl (8.5-10.1); CARBON DIOXIDE 24 mmol/L (21-32); CREATININE 0.96 mg/dl (0.60-1.40); GLUCOSE 154 mg/dl (70-99); POTASSIUM 3.9 mmol/L (3.5-5.1); SODIUM 139 mmol/L (136-145)
--- NOTE | 2017-12-17 16:04 | DIAGNOSTIC IMAGING REPORT ---
CHEST 2 VIEWS ROUTINE CLINICAL HISTORY: Respiratory distress COMPARISON STUDY: December 01, 2017 FINDINGS: The heart is mildly enlarged. There is no failure. There is no focal pulmonary consolidation. There are no pleural effusions. Postsurgical changes are present within the lower thoracic spine. Vague opacities within the axillary portions of both upper lung zones are felt to be artifactual due to overlying soft tissue.[ IMPRESSION: No active disease in the chest. Electronically signed by: Garland Medina M.D. 12/17/2017 4:03 PM Dictated Date/Time: 12/17/2017 4:02 PM
[2017-12-17] MEDS ORDERED: PRED50TA PO (16:22)
[2017-12-17 17:28] VITALS: BP 151/103; PULSE 66; O2SAT 98
== END 2017-12-17 17:29 | disposition home or self-care (01) ==
LOC: C.EDB 13:55
DX: J45.21 Mild intermittent asthma with (acute) exacerbation (principal); I10 Essential (primary) hypertension; Z79.899 Other long term (current) drug therapy; Z88.0 Allergy status to penicillin; Z88.1 Allergy status to other antibiotic agents; Z83.6 Family history of other diseases of the respiratory system